=== PATIENT | female | born 2005 | race Caucasian/White ===

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

== ENCOUNTER 2025-09-13 10:31 | Outpatient (CLI) | payer BC, SELFPAY ==
--- OUTSIDE RECORDS SUMMARY | 2025-07-17 20:41 | XMS_ITS | Encounter Summary ---
Author Organization [facility] Address [address] [place] [address] Care Team Providers Care Nut Packer Name Role Phone Stacy Lake MD Primary Care Provider + Reason for Visit * Reason Comments Wellness Check Encounter Details Date Type Department Care Team (Late st Contact Info) Description 07/17/2025 9:41 PM EDT - 07/18/2025 1:39 AM EDT Emergency [facility] [address] [place] [phone] Charles Rocha MD [address] [place] [address] POTS (postural orthostatic tachycardia syndrome) (Primary Dx); Vasovagal syncope Discharge Disposition: Home or Self Care Social History Tobacco Use Types Packs/Day Years Used Date Smoking Tobacco: Never Smokeless Tobacco: Never Abuse Screen Answer Date Recorded Feels Unsafe at Home or Work/School no 07/17/2025 Feels Threatened by Someone no 06/25 Does Anyone Try to Keep You From Having Contact with Others or Doing Things Outside Your Home? no 07/17/2025 Physical Signs of Abuse Present no 07/17/2025 Comments No Sex and Gender Information Value Date Recorded Sex Assigned at Not on file Legal Sex Female 5:07 PM EDT Gender Identity Not on file Sexual Orientation Not on file Travel History Travel Start Travel End [place] 07/21/2025 08/20/2025 documented as of this encounter Last Filed Vital Signs Vital Sign Reading Time Taken Comments Blood Pressure 145/96 07/18/2025 1:30 AM EDT Pulse 75 07/18/2025 1:31 AM EDT Temperature 36.8 C (98.3 F) 07/17/2025 9:46 PM EDT Respiratory Rate 16 07/17/2025 9:46 PM EDT Oxygen Saturation 100% 07/18/2025 1:31 AM EDT Inhaled Oxygen Concentration - - Weight 113 kg (250 lb) 07/17/2025 9:46 PM EDT Height 170.2 cm (5' 7 ) 07/17/2025 9:46 PM EDT Body Mass Index 39.16 07/17/2025 9:46 PM EDT documented in this encounter Functional Status * Calculated C-SSRS Risk Score (Lifetime/Recent) Answer Date of Assessment Author No Risk Indicated 07/17/2025 9:50 PM EDT Dominique Avalos RN * [place] Suicide Severity Rating Scale (Screener/Recent Self-Report) Question Answer Date of Assessment Author 1. Wish to be (Past 1 Month) No 07/17/2025 9:50 PM EDT Dominique Vela RN 2. Non-Specific Active Suici prudencio Thoughts (Past 1 Month) No 07/17/2025 9:50 PM EDT Jac Vela RN 6. Suicidal Behavior (Lifetime) No 9:50 PM EDT Dominique Vela RN documented as of this encounter Discharge Instructions * Discharge Instructions* Charles Rocha MD - 07/18/2025 1:19 AM EDT You were evaluated after passing out. We got lab work and a chest x-ray that showed no concerns forblood clots, other problems with your hearts or electrolyte derangement. You are now stable for discharge. We would recommend that you follow with your chronic care providers to further discuss your chronic syncope and POTS. Would recommend drinking plenty of fluids prevent dehydration we have sentmore Zofran to help with nausea and vomiting at home. If you begin to have chest pain or shortness of breath, please come back to the emergency department for further evaluation. You are now stable for discharge. * Attachments The following attachments cannot be sent through Care Everywhere. * Syncope Adult [id number]-Dphx ([place]) documented in this encounter Medications at Time of Discharge Aimovig 140 MG/ML auto-injector Inject 1 mL under the skin into the appropriate area as directed Every 30 (Thirty) Days. 04/12/2024 Cholecalciferol 50 MCG (2000 UT) tablet Take 2,000 Units by mouth Daily. 08/18/2021 colestipol (COLESTID) 1 g tablet Take 1 tablet by mouth 2 (Two) Times a Day. 01/09/2025 01/11/20 famotidine (PEPCID) 20 MG tablet Take 1 tablet by mouth Daily. fludrocortisone 0.1 MG tablet Take 1 tablet by mouth Daily. 08/31/2024 ibuprofen (ADVIL,MOTRIN) 800 MG tablet Take 1 tablet by mouth Daily. 04/12/2024 ivabradine HCl (CORLANOR) 5 MG tablet tablet Take 0.5 tablets by mouth. 07/27/2024 levothyroxine (SYNTHROID, LEVOTHROID) 88 MCG tablet Take 88 mcg by mouth Daily. magnesium oxide (MAG-OX) 400 MG tablet Take 400 mg by mouth Daily. 08/18/2022 metoprolol succinate XL (TOPROL-XL) 25 MG 24 hr tablet Take 0.5 tablets by mouth Daily. 06/14/2024 Nurtec 75 MG dispersible tablet Take 1 tablet by mouth. 04/12/2024 ondansetron ODT (ZOFRAN-ODT) [address] 1 tablet on the tongue Every 8 (Eight) Hours As Needed for Nausea or Vomiting. 20 tablet 07/18/2025 pantoprazole (PROTONIX) 40 MG EC tablet 1 tablet. SUMAtriptan (IMITREX) 50 MG tablet TAKE 1 TABLET BY MOUTH ONCE NEEDED FOR MIGRAINE, MAY REPEAT AFTER 2 HOURS 10/03/2022 topiramate (TOPAMAX) 25 MG tablet TAKE 1 TABLET BY MOUTH TWICE DAILY. START WITH 1 TABLET AT NIGHT FOR 7 DAYS. 11/16/2022 documented as of this encounter ED Notes * Hector Ortiz RN - 07/18/2025 1:35 AM EDT Pt left ER in stable condition and a&o x4. Pt left in wheelchair accompanied by central sterile tech and left with [facility] [employer] en route to [facility]. Pt had no further questions following discharge teaching. * Edis Ward - 07/18/2025 1:25 AM EDTSummary: Transportation [facility] [employer] called for transport back to [place]. * Charles Rocha MD - 07/17/2025 9:46 PM EDT Images from the original note were not included. Subjective: History of Present Illness: Patient is a 19-year-old female with history of hypothyroidism, POTS and vasovagal syncope who presents today with nausea vomiting and a syncopal episode. Reportedly has had several episodes of vomiting today and was found down by her roommate. Was not alert and oriented and at her baseline on EMS a rrival. She denies any fevers. Denies any trauma. No headache or visual change. Denies any chest pain or shortness of breath. No abdominal pain, no diarrhea. Denies any dysuria. No abnormal vaginal bleeding or discharge. Denies . No new leg swelling or leg pain. Denies any personal historyof PE/DVT. Nurses Notes reviewed and agree, including vitals, allergies, social history and prior medical history. REVIEW OF SYSTEMS: All systems reviewed and not pertinent unless noted. Review of Systems Constitutional: Positive for activity change and appetite change. Negative for chills, fatigue and fever. HENT: Negative for rhinorrhea, sinus pressure and sinus pain. Eyes: Negative for discharge and itching. Respiratory: Negative for cough and shortness of breath. Cardiovascular: Negative for chest pain and leg swelling. Gastrointestinal: Positive for nausea and vomiting. Negative for abdominal distention, abdominal pain, constipation and diarrhea. Endocrine: Negative for cold intolerance and heat intolerance. Genitourinary: Negative for decreased urine volume, difficulty urinating, flank pain, frequency, urgency, vaginal bleeding, vaginal discharge and vaginal pain. Musculoskeletal: Negative for gait problem, neck pain and neck stiffness. Skin: Negative for color change. Allergic/Immunologic: Negative for environmental allergies. Neurological: Positive for syncope. Negative for seizures, facial asymmetry and speech difficulty. Psychiatric/Behavioral: Negative for self-injury and suicidal ideas. Past Medical History: Diagnosis Date Hypothyroid POTS (postural orthostatic tachycardia syndrome) Allergies: Red dye #40 (allura red) and Sulfa antibiotics Past Surgical History: Procedure Laterality Date TONSILLECTOMY Bilateral Social History Socioeconomic History Marital status: Single Tobacco Use Smoking status: Never Smokeless tobacco: Never Vaping Use Vaping status: Never Used Substance and Sexual Activity Drug use: Never Sexual activity: Never History reviewed. No pertinent family history. Objective Physical Exam: BP 145/96 Pulse 75 Temp 98.3 ??F (36.8 ??C) (Oral) Resp 16 Ht 170.2 cm (67 ) Wt 113 kg (250 lb) LMP 06/05/2025 (Approximate) SpO2 100% BMI 39.16 kg/m?? Physical Exam Constitutional: General: She is not in acute distress. Appearance: Normal appearance. She is obese. She is not ill-appearing. HENT: Head: Normocephalic and atraumatic. Nose: Nose normal. No congestion or rhinorrhea. Mouth/Throat: Mouth: Mucous membranes are dry. Pharynx: Oropharynx is clear. No oropharyngeal exudate or posterior oropharyngeal erythema. Eyes: Extraocular Movements: Extraocular movements intact. Conjunctiva/sclera: Conjunctivae normal. Pupils: Pupils are equal, round, and reactive to light. Cardiovascular: Rate and Rhythm: Normal rate and regular rhythm. Pulses: Normal pulses. Heart sounds: Normal heart sounds. Pulmonary: Effort: Pulmonary effort is normal. No respiratory distress. Breath sounds: Normal breath sounds. Abdominal: General: Abdomen is flat. Bowel sounds are normal. There is no distension. Palpations: Abdomen is soft. Tenderness: There is no abdominal tenderness. There is no right CVA tenderness, left CVA tenderness, guarding or rebound. Musculoskeletal: General: No swelling or tenderness. Normal range of motion. Cervical back: Normal range of motion and neck supple. Right lower leg: No edema. Left lower leg: No edema. Skin: General: Skin is warm and dry. Capillary Refill: Capillary refill takes less than 2 seconds. Neurological: General: No focal deficit present. Mental Status: She is alert and oriented to person, place, and time. Mental status is at baseline. Cranial Nerves: No cranial nerve deficit. Sensory: No sensory deficit. Motor: No weakness. Coordination: Coordination normal. Psychiatric: Mood and Affect: Mood normal. Behavior: Behavior normal. Thought Content: Thought content normal. Judgment: Judgment normal. Procedures ED Course: ED Course as of 07/18/25230Jul 17, [id number] EKG interpreted by me, normal sinus rhythm concerning ST changes noted, rate of 78 [JE] 4 Chest x-ray independently interpreted by me showed no acute process [JE] ED Course User Index [JE] Charles Rocha MD Lab Results (last 24 hours) Procedure Component Value Units Date/Time COVID-19 and FLU A/B PCR, 1 HR TAT - Swab, Nasopharynx [[id number]] (Normal) Collected: 07/17/252150 Specimen: Swab from Nasopharynx Updated: 07/17/252215 COVID19 Not Detected Influenza A PCR Not Detected Influenza B PCR Not Detected CBC & Differential [[id number]] (Abnormal) Collected: 07/17/252150 Specimen: Blood Updated: 07/17/252156 Narrative: The following orders were created for panel order CBC & Differential. Procedure Abnormality Status --------- ------ CBC Auto Differential[[id number]] Abnormal Final result Please view results for these tests on the individual orders. Comprehensive Metabolic Panel [[id number]] (Abnormal) Collected: 07/17/252150 Specimen: Blood Updated: 07/17/252212 Glucose 93 mg/dL BUN 17.0 mg/dL Creatinine 0.71 mg/dL Sodium 138 mmol/L Potassium 4.1 mmol/L Chloride 106 mmol/L CO2 20.6 mmol/L Calcium 9.0 mg/dL Total Protein 6.9 g/dL Albumin 4.3 g/dL ALT (SGPT) 26 U/L AST (SGOT) 26 U/L Alkaline Phosphatase 88 U/L Total Bilirubin 0.6 mg/dL Globulin 2.6 gm/dL A/G Ratio 1.7 g/dL BUN/Creatinine Ratio 23.9 Anion Gap 11.4 mmol/L eGFR 125.8 mL/min/1.73 Narrative: GFR Categories in Chronic Kidney Disease (CKD) GFR Category GFR (mL/min/1.73) Interpretation G1 90 or greater Normal or high (1) G2 60-89 Mild decrease (1) G3a 45-59 Mild to moderate decrease G3b 30-44 Moderate to severe decrease G4 15-29 Severe decrease G5 14 or less Kidney failure (1)In the absence of evidence of kidney disease, neither GFR category G1 or G2 fulfill the criteriafor CKD. eGFR calculation 2020 CKD-EPI creatinine equation, which does not include race as a factor High Sensitivity Troponin T [[id number]] (Normal) Collected: 07/17/252150 Specimen: Blood Updated: 07/17/252215 HS Troponin T <6 ng/L Narrative: High Sensitive Troponin T Reference Range: <14.0 ng/L- Negative Female for AMI <22.0 ng/L- Negative Male for AMI >=14 - Abnormal Female indicating possible myocardial injury. >=22 - Abnormal Male indicating possible myocardial injury. Clinicians would have to utilize clinical acumen, EKG, Troponin, and serial changes to determine ifit is an Acute Myocardial Infarction or myocardial injury due to an underlying chronic condition. D-dimer, Quantitative [[id number]] (Normal) Collected: 07/17/252150 Specimen: Blood Updated: 07/17/252249 D-Dimer, Quantitative <0.27 MCGFEU/mL Narrative: According to the assay billposter's published package insert, a normal (<0.50 MCGFEU/mL) D-dimer result in conjunction with a non-high clinical probability assessment, excludes deep vein thrombosis (DVT) and pulmonary embolism (PE) with high sensitivity. D-dimer values increase with age and this can make VTE exclusion of an older population difficult. To address this, the [employer], based on best available evidence and recent guidelines, recommends that clinicians use age-adjusted D-dimer thresholds in patients greater than 50 years of age with: a) a low probability of PE who do not meet all Pulmonary Embolism Rule Out Criteria, or b) in those with intermediate probability of PE. The formula for an age-adjusted D-dimer cut-off is age/100 . For example, a 60 year old patient would have an age-adjusted cut-off of 0.60 MCGFEU/mL and an 80 year old 0.80 MCGFEU/mL. C-reactive Protein [[id number]] (Abnormal) Collected: 07/17/252150 Specimen: Blood Updated: 07/17/252212 C-Reactive Protein 0.59 mg/dL Procalcitonin [[id number]] (Normal) Collected: 07/17/252150 Specimen: Blood Updated: 07/17/252220 Procalcitonin 0.04 ng/mL Narrative: As a Marker for Sepsis (Non-Neonates): 1. <0.5 ng/mL represents a low risk of severe sepsis and/or septic shock. 2. >2 ng/mL represents a high risk of severe sepsis and/or septic shock. As a Marker for Lower Respiratory Tract Infections that require antibiotic therapy: PCT on Admission Antibiotic Therapy 6-12 Hrs later >0.5 Strongly Recommended >0.25 - <0.5 Recommended 0.1 - 0.25 Discouraged Remeasure/reassess PCT <0.1 Strongly Discouraged Remeasure/reassess PCT As 28 day mortality risk marker: Change in Procalcitonin Result (>80% or <=80%) if Day 0 (or Day 1) and Day 4 values are available. Refer to http://www.kplnoc-lmk-trxswkdsst.com Change in PCT <=80% A decrease of PCT levels below or equal to 80% defines a positive change in PCT test result representing a higher risk for 28-day all-cause mortality of patients diagnosed with severe sepsis for septic shock. Change in PCT >80% A decrease of PCT levels of more than 80% defines a negative change in PCT result representing a lower risk for 28-day all-cause mortality of patients diagnosed with severe sepsis or septic shock. Magnesium [[id number]] (Normal) Collected: 07/17/252150 Specimen: Blood Updated: 07/17/252212 Magnesium 2.2 mg/dL CK [[id number]] Collected: 07/17/252150 Specimen: Blood Updated: 07/17/252212 Creatine Kinase 156 U/L CBC Auto Differential [[id number]] (Abnormal) Collected: 07/17/252150 Specimen: Blood Updated: 07/17/252156 WBC 11.44 10*3/mm3 RBC 4.11 10*6/mm3 Hemoglobin 12.5 g/dL Hematocrit 36.5 % MCV 88.8 fL MCH 30.4 pg MCHC 34.2 g/dL RDW 13.5 % RDW-SD 43.9 fl MPV 10.5 fL Platelets 358 10*3/mm3 Neutrophil % 53.8 % Lymphocyte % 35.7 % Monocyte % 9.0 % Eosinophil % 0.7 % Basophil % 0.5 % Immature Grans % 0.3 % Neutrophils, Absolute 6.16 10*3/mm3 Lymphocytes, Absolute 4.08 10*3/mm3 Monocytes, Absolute 1.03 10*3/mm3 Eosinophils, Absolute 0.08 10*3/mm3 Basophils, Absolute 0.06 10*3/mm3 Immature Grans, Absolute 0.03 10*3/mm3 nRBC 0.0 /100 WBC , Urine - Urine, Clean Catch [[id number]] (Normal) Collected: 07/18/2555 Specimen: Urine, Clean Catch Updated: 07/18/25 011 HCG, Urine QL Negative Narrative: Urinalysis With Culture If Indicated - Urine, Clean Catch [[id number]] (Abnormal) Collected: 07/18/2555 Specimen: Urine, Clean Catch Updated: 07/18/25 0101 Color, UA Yellow Appearance, UA Clear pH, UA 5.5 Specific [place], UA 1.020 Glucose, UA Negative Ketones, UA 40 mg/dL (2+) Bilirubin, UA Negative Blood, UA Negative Protein, UA Negative Leuk Esterase, UA Negative Nitrite, UA Negative Urobilinogen, UA 0.2 E.U./dL Narrative: In absence of clinical symptoms, the presence of pyuria, bacteria, and/or nitrites on the urinalysis result does not correlate with infection. Urine microscopic not indicated. No radiology results from the last 24 hrs MDM Amount and/or Complexity of Data Reviewed Independent visualization of images, tracings, or specimens: yes Initial impression of presenting illness: Syncope DDX: includes but is not limited to: Vasovagal syncope, gastroenteritis, dehydration, PE Patient arrives stable with vitals interpreted by myself. Pertinent features from physical exam: Clear to auscultation, regular rate and rhythm, no murmur, nontender to abdominal palpation, no pedal edema bilateral. Initial diagnostic plan: CBC, CMP, lipase, UA, CRP, lactic acid, troponin, D- dimer UA, UPT Results from initial plan were reviewed and interpreted by me revealing no concern for PE, no concern for acute cardiac process, patient does have ketonuria likely secondary to slight dehydration Diagnostic information from other sources: Discussed with EMS on arrival and reviewed past medical records Interventions / Re-evaluation: Given IV fluids due to concerns for dehydration, received Zofran from EMS Results/clinical rationale were discussed with patient at bedside Consultations/Discussion of results with other physicians: Discussed negative workup in emergency department, given ketonuria suspect dehydration as etiology of her presentation today. I prescribed patient Zofran encourage oral hydration at home and follow-up with her chronic care providers to ensure resolution of symptoms. Given strict turn precaution for any severe chest pain, shortness of breath, further episodes of syncope. Disposition plan: Discharge ----- Final diagnoses: POTS (postural orthostatic tachycardia syndrome) Vasovagal syncope Charles Rocha MD 07/18/25 0231 documented in this encounter Plan of Treatment Not on file documented as of this encounter Procedures Procedure Name Priority Date/Time Associated Diagnosis Comments URINALYSIS W/ CULTURE IF INDICATED STAT 07/18/2025 12:56 AM EDT , URINE STAT 07/18/2025 12:5 6 AM EDT XR CHEST 1 VW STAT 07/17/2025 10:14 PM EDT ECG 12-LEAD STAT 07/17/2025 9:58 PM EDT COVID-19 AND FLU A/B, AUTOMATION QA ANALYST SWAB IN TRANSPORT MEDIA 1 HR TAT STAT 07/17/2025 9:51 PM EDT PROCALCITONIN STAT 07/17/2025 9:51 PM EDT CBC WITH AUTO DIFFERENTIAL STAT 07/17/2025 9:51 PM EDT TROPONIN STAT 07/17/2025 9:51 PM EDT D-DIMER, QUANTITATIVE STAT 07/17/2025 9:51 PM EDT CBC AND DIFFERENTIAL STAT 07/17/2025 9:51 PM EDT C-REACTIVE PROTEIN STAT 07/17/2025 9: 51 PM EDT MAGNESIUM STAT 07/17/2025 9:51 PM EDT CK STAT 07/17/2025 9:51 PM EDT COMPREHENSIVE METABOLIC PANEL STAT 07/17/2025 9:51 PM EDT documented in this encounter Results * (ABNORMAL) Urinalysis With Culture If Indicated - Urine, Clean Catch (07/18/2025 12:56 AM EDT) Color, UA Yellow Yellow, Straw 07/18/2025 1:01 AM EDT [facility] Appearance, UA Clear Clear 07/18/2025 1:01 AM EDT [facility] pH, UA 5.5 5.0 - 8.0 07/18/2025 1:01 AM EDT [facility] Specific [place], UA 1.020 1.005 - 1.030 07/18/2025 1:01 AM EDT [facility] Glucose, UA Negative Negative 07/18/2025 1:01 AM EDT [facility] Ketones, UA 40 mg/dL (2+)(A) Negative 07/18/2025 1:01 AM EDT [facility] Bilirubin, UA Negative Negative 07/18/2025 1:01 AM EDT [facility] Blood, UA Negative Negative 07/18/2025 1:01 AM EDT [facility] Protein, UA Negative Negative 07/18/2025 1:01 AM EDT [facility] Leuk Esterase, UA Negative Negative 07/18/2025 1:01 AM EDT [facility] Nitrite, UA Negative Negative 07/18/2025 1:01 AM EDT [facility] Urobilinogen, UA 0.2 E.U./dL 0.2 - 1.0 E.U./dL 07/18/2025 1:01 AM EDT [facility] Urine Urine specimen obtained by clean catch procedure / Unknown Collection / Unknown 07/18/2025 12:56 AM EDT 07/18/2025 12:56 AM EDT [facility] - 07/18/2025 1:01 AM EDT In absence of clinical symptoms, the presence of pyuria, bacteria, and/or nitrites on the urinalysis result does not correlate with infection. Urine microscopic not indicated. us Charles Rocha MD URINE ORDERABLES Final Res ult Performing Organization Address City/[facility]/ZIP Co de Phone Number [facility]
[address] [id number], [place] [phone] * , Urine - Urine, Clean Catch (07/18/2025 12:56 AM EDT) HCG, Urine QL Negative Negative 07/18/2025 1:12 AM EDT [facility] Urine Urine specimen obtained by clean catch procedure / Unknown Collection / Unknown 07/18/2025 12:56 AM EDT 07/18/2025 12:56 AM EDT [facility] - 07/18/2025 1:12 AM EDT us Charles Rocha MD URINE ORDERABLES Final Res ult Performing Organization Address City/[facility]/ZIP Co de Phone Number [facility]
[address] [id number], [place] [phone] * XR Chest 1 View (07/17/2025 10:14 PM EDT) Anatomical Region Laterality Modality Body N/A Radiographic Breanna ging 07/18/2025 1:31 PM EDT Impressions 07/18/2025 1:32 PM EDT No acute cardiopulmonary process. Images were reviewed, interpreted, and dictated by Dr. Radha Vaughn MD Transcribed by Tony Gonzalez PA-C. This report was signed and finalized on 07/18/2025 1:32 PM by Radha Vaughn MD. Narrative 07/18/2025 1:32 PM EDT PROCEDURE: XR CHEST 1 VW- HISTORY: Syncope COMPARISON: 06/06/2025. FINDINGS: The heart is normal in size. The mediastinum is unremarkable. The lungs are clear. There is no pneumothorax. There are no acute osseous abnormalities. No change compared to prior. Procedure Note Radha Vaughn MD - 07/18/2025 PROCEDURE: XR CHEST 1 VW- HISTORY: Syncope COMPARISON: 06/06/2025. FINDINGS: The heart is normal in size. The mediastinum is unremarkable. The lungs are clear. There is no pneumothorax. There are no acute osseous abnormalities. No change compared to prior. IMPRESSION: No acute cardiopulmonary process. Images were reviewed, interpreted, and dictated by Dr. Radha Vaughn MD Transcribed by Tony Gonzalez PA-C. This report was signed and finalized on 07/18/2025 1:32 PM by Radha Vaughn MD. Charles Rocha MD IMG DIAGNOSTIC IMAGING ORD ERABLES Final Result * ECG 12 Lead Syncope (07/17/2025 9:58 PM EDT) us Charles Rocha MD ECG ORDERABLES Final Resu lt * (ABNORMAL) CBC Auto Differential (07/17/2025 9:51 PM EDT) WBC 11.44(H) 3.40 - 10.80 10*3/mm3 07/17/2025 9:57 PM EDT [facility] RBC 4.11 3.77 - 5.28 10*6/mm3 07/17/2025 9:57 PM EDT [facility] Hemoglobin 12.5 12.0 - 15.9 g/dL 07/17/2025 9:57 PM EDT [facility] Hematocrit 36.5 34.0 - 46.6 % 07/17/2025 9:57 PM EDT [facility] MCV 88.8 79.0 - 97.0 fL 07/17/2025 9:57 PM EDT [facility] MCH 30.4 26.6 - 33.0 pg 07/17/2025 9:57 PM EDT [facility] MCHC 34.2 31.5 - 35.7 g/dL 07/17/2025 9:57 PM EDT [facility] RDW 13.5 12.3 - 15.4 % 07/17/2025 9:57 PM EDT [facility] RDW-SD 43.9 37.0 - 54.0 fl 07/17/2025 9:57 PM EDT [facility] MPV 10.5 6.0 - 12.0 fL 07/17/2025 9:57 PM EDT [facility] Platelets 358 140 - 450 10*3/mm3 07/17/2025 9:57 PM EDT [facility] Neutrophil % 53.8 42.7 - 76.0 % 07/17/2025 9:57 PM EDT [facility] Lymphocyte % 35.7 19.6 - 45.3 % 07/17/2025 9:57 PM EDT [facility] Monocyte % 9.0 5.0 - 12.0 % 07/17/2025 9:57 PM EDT [facility] Eosinophil % 0.7 0.3 - 6.2 % 07/17/2025 9:57 PM EDT [facility] Basophil % 0.5 0.0 - 1.5 % 07/17/2025 9:57 PM EDT [facility] Immature Grans % 0.3 0.0 - 0.5 % 07/17/2025 9:57 PM EDT [facility] Neutrophils, Absolute 6.16 1.70 - 7.00 10*3/mm3 07/17/2025 9:57 PM EDT [facility] Lymphocytes, Absolute 4.08(H) 0.70 - 3.10 10*3/mm3 07/17/2025 9:57 PM EDT [facility] Monocytes, Absolute 1.03(H) 0.10 - 0.90 10*3/mm3 07/17/2025 9:57 PM EDT [facility] Eosinophils, Absolute 0.08 0.00 - 0.40 10*3/mm3 07/17/2025 9:57 PM EDT [facility] Basophils, Absolute 0.06 0.00 - 0.20 10*3/mm3 07/17/2025 9:57 PM EDT [facility] Immature Grans, Absolute 0.03 0.00 - 0.05 10*3/mm3 07/17/2025 9:57 PM EDT [facility] nRBC 0.0 0.0 - 0.2 /100 WBC 07/17/2025 9:57 PM EDT [facility] Blood Venipuncture / Unknown 07/17/2025 9:51 PM EDT 07/17/2025 9:54 PM EDT Charles Rocha MD LAB BLOOD ORDERABLES Final Result [facility]
[address] [place] [address], * CK (07/17/2025 9:51 PM EDT) Creatine Kinase 156 U/L 07/17/2025 10:13 PM EDT [facility] Blood Venipuncture / Unknown 07/17/2025 9:51 PM EDT 07/17/2025 9:55 PM EDT Charles Rocha MD LAB BLOOD ORDERABLES Final Result [facility]
[address] [place] [address], [place] [phone] * Magnesium (07/17/2025 9:51 PM EDT) Magnesium 2.2 1.7 - 2.2 mg/dL 07/17/2025 10:13 PM EDT [facility] Blood Venipuncture / Unknown 07/17/2025 9:51 PM EDT 07/17/2025 9:55 PM EDT us Charles Rocha MD LAB BLOOD ORDERABLES Final Result [facility]
[address] [place] [address], * Procalcitonin (07/17/2025 9:51 PM EDT) Procalcitonin 0.04 0.00 - 0.25 ng/mL 07/17/2025 10:21 PM EDT [facility] Blood Venipuncture / Unknown 07/17/2025 9:51 PM EDT 07/17/2025 9:55 PM EDT Narrative [facility] - 07/17/2025 10:21 PM EDT As a Marker for Sepsis (Non-Neonates): 1. <0.5 ng/mL represents a low risk of severe sepsis and/or septic shock. 2. >2 ng/mL represents a high risk of severe sepsis and/or septic shock. As a Marker for Lower Respiratory Tract Infections that require antibiotic therapy: PCT on Admission Antibiotic Therapy 6-12 Hrs later >0.5 Strongly Recommended >0.25 - <0.5 Recommended 0.1 - 0.25 Discouraged Remeasure/reassess PCT <0.1 Strongly Discouraged Remeasure/reassess PCT As 28 day mortality risk marker: Change in Procalcitonin Result (>80% or <=80%) if Day 0 (or Day 1) and Day 4 values are available. Refer to http://www.epiblq-fqt-dddcgclkxk.com Change in PCT <=80% A decrease of PCT levels below or equal to 80% defines a positive change in PCT test result representing a higher risk for 28-day all-cause mortality of patients diagnosed with severe sepsis for septic shock. Change in PCT >80% A decrease of PCT levels of more than 80% defines a negative change in PCT result representing a lower risk for 28-day all-cause mortality of patients diagnosed with severe sepsis or septic shock. us Charles Rocha MD LAB BLOOD ORDERABLES Final Result [facility]
[address] [place] [address], * (ABNORMAL) C-reactive Protein (07/17/2025 9:51 PM EDT) C-Reactive Protein 0.59(H) 0.00 - 0.50 mg/dL 07/17/2025 10:13 PM EDT [facility] Blood Venipuncture / Unknown 07/17/2025 9:51 PM EDT 07/17/2025 9:55 PM EDT Charles Rocha MD LAB BLOOD ORDERABLES Final Result Performing Organization Address [facility]/ZIP Co de Phone Number [facility]
[address] [place] [address], * D-dimer, Quantitative (07/17/2025 9:51 PM EDT) Pathologist [facility] D-Dimer, Quantitative <0.27 0.00 - 0.50 MCGFEU/mL 07/17/2025 10:50 PM EDT [facility] Blood Venipuncture / Unknown 07/17/2025 9:51 PM EDT 07/17/2025 9:54 PM EDT Narrative [facility] - 07/17/2025 10:50 PM EDT According to the assay [employer]'s published package insert, a normal (<0.50 MCGFEU/mL) D-dimer result in conjunction with a non-high clinical probability assessment, excludes deep vein thrombosis (DVT) and pulmonary embolism (PE) with high sensitivity. D-dimer values increase with age and this can make VTE exclusion of an older population difficult. To address this, the [employer], based on best available evidence and recent guidelines, recommends that clinicians use age-adjusted D-dimer thresholds in patients greater than 50 years of age with: a) a low probability of PE who do not meet all Pulmonary Embolism Rule Out Criteria, or b) in those with intermediate probability of PE. The formula for an age-adjusted D-dimer cut-off is age/100 . For example, a 60 year old patient would have an age-adjusted cut-off of 0.60 MCGFEU/mL and an 80 year old 0.80 MCGFEU/mL. us Charles Rocha MD LAB BLOOD ORDERABLES Final Result Performing Organization Address City/[facility]/ZIP Co de Phone Number [facility]
[address] [place] [address], * High Sensitivity Troponin T (07/17/2025 9:51 PM EDT) [facility] HS Troponin T <6 <14 ng/L 07/17/2025 10:16 PM EDT [facility] Blood Venipuncture / Unknown 07/17/2025 9:51 PM EDT 07/17/2025 9:55 PM EDT [facility] - 07/17/2025 10:16 PM EDT High Sensitive Troponin T Reference Range: <14.0 ng/L- Negative Female for AMI <22.0 ng/L- Negative Male for AMI >=14 - Abnormal Female indicating possible myocardial injury. >=22 - Abnormal Male indicating possible myocardial injury. Clinicians would have to utilize clinical acumen, EKG, Troponin, and serial changes to determine if it is an Acute Myocardial Infarction or myocardial injury due to an underlying chronic condition. us Charles Rocha MD LAB BLOOD ORDERABLES Final Result Performing Organization Address [facility] Co de Phone Number [facility]
[address] [place] [id number], * (ABNORMAL) Comprehensive Metabolic Panel (07/17/2025 9:51 PM EDT) [facility] Glucose 93 65 - 99 mg/dL 07/17/2025 10:13 PM EDT [facility] BUN 17.0 6.0 - 20.0 mg/dL 07/17/2025 10:13 PM EDT [facility] Creatinine 0.71 0.57 - 1.00 mg/dL 07/17/2025 10:13 PM [facility] Sodium 138 136 - 145 mmol/L 07/17/2025 10:13 PM [facility] Potassium 4.1 3.5 - 5.2 mmol/L 07/17/2025 10:13 PM [facility] Chloride 106 98 - 107 mmol/L 07/17/2025 10:13 PM [facility] CO2 20.6(L) 22.0 - 29.0 mmol/L 07/17/2025 10:13 PM [facility] Calcium 9.0 8.6 - 10.5 mg/dL 07/17/2025 10:13 PM [facility] Total Protein 6.9 6.0 - 8.5 g/dL 07/17/2025 10:13 PM [facility] Albumin 4.3 3.5 - 5.2 g/dL 07/17/2025 10:13 PM [facility] ALT (SGPT) 26 1 - 33 U/L 07/17/2025 10:13 PM [facility] AST (SGOT) 26 1 - 32 U/L 07/17/2025 10:13 PM [facility] Alkaline Phosphatase 88 39 - 117 U/L 07/17/2025 10:13 PM [facility] Total Bilirubin 0.6 0.0 - 1.2 mg/dL 07/17/2025 10:13 PM [facility] Globulin 2.6 gm/dL 07/17/2025 10:13 PM [facility] A/G Ratio 1.7 g/dL 07/17/2025 10:13 PM [facility] BUN/Creatinine Ratio 23.9 7.0 - 25.0 07/17/2025 10:13 PM [facility] Anion Gap 11.4 5.0 - 15.0 mmol/L 07/17/2025 10:13 PM [facility] eGFR 125.8 >60.0 mL/min/1.7 3 07/17/2025 10:13 PM EDT [facility] Blood Venipuncture / Unknown 07/17/2025 9:51 PM EDT 07/17/2025 9:55 PM EDT Narrative [facility] - 07/17/2025 10:13 PM EDT GFR Categories in Chronic Kidney Disease (CKD) GFR Category GFR (mL/min/1.73) Interpretation G1 90 or greater Normal or high (1) G2 60-89 Mild decrease (1) G3a 45-59 Mild to moderate decrease G3b 30-44 Moderate to severe decrease G4 15-29 Severe decrease G5 14 or less Kidney failure (1)In the absence of evidence of kidney disease, neither GFR category G1 or G2 fulfill the criteria for CKD. eGFR calculation 2020 CKD-EPI creatinine equation, which does not include race as a factor Charles Rocha MD LAB BLOOD ORDERABLES Final Result [facility]
[address] [place] [address], * COVID-19 and FLU A/B PCR, 1 HR TAT - Swab, Nasopharynx (07/17/2025 9:51 PM EDT) COVID19 Not Detected Not Detected - Ref. Range WALLACE FREDY NAHOMY 07/17/2025 10:16 PM EDT [facility] Influenza A PCR Not Detected Not Detected WALLACE FREDY NAHOMY 07/17/2025 10:16 PM EDT [facility] Influenza B PCR Not Detected Not Detected WALLACE FREDY NAHOMY 07/17/2025 10:16 PM EDT [facility] Swab Nasopharyngeal structure / Unknown Collection / Unknown 07/17/2025 9:51 PM EDT 07/17/2025 9:54 PM EDT Charles Rocha MD MICROBIOLOGY - GENERAL ORD ERABLES Final Result [facility]
[address] [place] [address], documented in this encounter Visit Diagnoses Diagnosis POTS (postural orthostatic tachycardia syndrome)- Primary Unspecified tachycardia Vasovagal syncope Syncope and collapse documented in this encounter Administered Medications Inactive Administered Medications - up to 3 most recent administrations Medication Order MAR Action Action Date Dose Rate Site sodium chloride 0.9 % bolus 1,000 mL 1,000 mL, Intravenous, at 2,000 mL/hr, Administer over 0.5 Hours, Once, On Tue07/17/25 at 2159, For 1 dose New Bag 07/17/2025 9:56 PM EDT 1,000 mL 2000 mL/hr documented in this encounter Active and Recently Administered Medications Times are shown in EDT. Scheduled Medication Order 07/16/2025 07/17/2025 07/18/2025 sodium chloride 0.9 % bolus 1,000 mL (COMPLETED) 1,000 mL, Intravenous, at 2,000 mL/hr, Administer over 0.5 Hours, Once, On Tue07/17/25 at 2159, For 1 dose 6 (New Bag - Provider: Dominique Vela RN) 0120 (Stopped - Provider: Hector Ortiz, EULOGIO) documented in this encounter Additional Health Concerns Infection Onset Date Last Indicated Resolved Time COVID (rule out) 07/17/2025 07/17/2025 07/17/2025 10:16 PM EDT documented as of this encounter Care Teams Nut Packer Relationship Specialty Start Date End Date Stacy Lake MD [address] [place] [address] PCP - General Family Medicine 02/08/22 documented as of this encounter
--- OUTSIDE RECORDS SUMMARY | 2025-07-20 21:49 | XMS_ITS | Encounter Summary ---
Author Organization [facility] Address [address] [place] [address] Care Team Providers Care Attendance Clerk Name Role Phone Stacy Lake MD Primary Care Provider + Reason for Visit * Reason Comments Possible [place] Episode Encounter Details Date Type Department Care Team (Late st Contact Info) Description 07/20/2025 10:49 PM EDT - 07/21/2025 12:18 AM EDT Emergency [facility] [address] [place] [address] Marvin Arias MD [address] [place] [address] Syncope and collapse (Primary Dx); POTS (postural orthostatic tachycardia syndrome) Discharge Disposition: Home or Self Care Social History Tobacco Use Types Packs/Day Years Used Date Smoking Tobacco: Never Smokeless Tobacco: Never Abuse Screen Answer Date Recorded Feels Unsafe at Home or Work/School no 07/21/2025 Feels Threatened by Someone no 06/25 Does Anyone Try to Keep You From Having Contact with Others or Doing Things Outside Your Home? no 07/21/2025 Physical Signs of Abuse Present no 07/21/2025 Comments No Sex and Gender Information Value Date Recorded Sex Assigned at Not on file Legal Sex Female 5:07 PM EDT Gender Identity Not on file Sexual Orientation Not on file Travel History Travel Start Travel End [place] 07/21/2025 08/20/2025 documented as of this encounter Last Filed Vital Signs Vital Sign Reading Time Taken Comments Blood Pressure 126/66 07/21/2025 12:00 AM EDT Pulse 73 07/21/2025 12:00 AM EDT Temperature 37.2 C (98.9 F) 07/20/2025 10:57 PM EDT Respiratory Rate 18 07/20/2025 10:57 PM EDT Oxygen Saturation 96% 07/21/2025 12:00 AM EDT Inhaled Oxygen Concentration - - Weight 113 kg (249 lb 1.9 oz) 07/20/2025 10:57 P M EDT Height 170.2 cm (5' 7 ) 07/20/2025 10:57 PM EDT Body Mass Index 39.02 07/20/2025 10:57 PM EDT documented in this encounter Functional Status * Calculated C-SSRS Risk Score (Lifetime/Recent) Answer Date of Assessment Author No Risk Indicated 07/20/2025 11:01 PM EDT Anna Peralta RN * [place] Suicide Severity Rating Scale (Screener/Recent Self-Report) Question Answer Date of Assessment Author 1. Wish to be (Past 1 Month) No 025 11:01 PM EDT Anna Peralta RN 2. Non-Specific Active Suici prudencio Thoughts (Past 1 Month) No 07/20/2025 11:01 PM EDT Gisele Peralta RN 6. Suicidal Behavior (Lifetime) No 11:01 PM EDT Anna Peralta RN documented as of this encounter Discharge Instructions * Discharge Instructions* Marvin Arias MD - 07/20/2025 11:37 PM EDT Drink plenty of fluids to prevent dehydration as it can cause more frequent flareups of POTS/syncope. Follow-up closely with primary care provider and cardiology as an outpatient for possible medication adjustments. * Attachments The following attachments cannot be sent through Care Everywhere. * Postural Orthostatic Tachycardia Syndrome (Amharic) documented in this encounter Medications at Time [...] TABLET AT NIGHT FOR 7 DAYS. 11/16/2022 amoxicillin (AMOXIL) 500 MG capsule Take 2 capsules by mouth 2 (Two) Times a Day. 08/13/20 25 documented as of this encounter ED Notes * Marvin Arias MD - 07/20/2025 10:59 PM EDT Images from the original note were not included. [facility] Emergency Department Encounter Emergency Medicine Physician Note Pt Name: Verenice Redding Pt : 2005 Room Number: 19SF/19 Date of encounter: 07/20/2025 PCP: Stacy Lake MD ED Provider: Marvin Arias MD Historian: Patient and EMS HPI: Chief Complaint: Syncope Context: Verenice Redding is a 19 y.o. female who presents to the ED c/o syncope. Patient has history of POTS with frequent ER visits for syncopal episodes. Has been seen 4 times in the past month for similar symptoms. States that tonight she had a syncopal episode in her room and thinks that she was unconscious for 2 to 3 minutes. Was awake alert and oriented at time of arrival by EMS. Patient does report mild headache at this time but denies head trauma. States she did not hit her head when she fell and remembers this. No states that she had a tooth extracted a few days ago which has been stressful to her. Admits that stress causes increased flareups of POTS. PAST MEDICAL HISTORY Past Medical History: Diagnosis Date Hypothyroid POTS (postural orthostatic tachycardia syndrome) PAST SURGICAL HISTORY Past Surgical History: Procedure Laterality Date TONSILLECTOMY Bilateral FAMILY HISTORY History reviewed. No pertinent family history. SOCIAL HISTORY Social History Socioeconomic History Marital status: Single Tobacco Use Smoking status: Never Smokeless tobacco: Never Vaping Use Vaping status: Never Used Substance and Sexual Activity Drug use: Never Sexual activity: Never ALLERGIES Red dye #40 (allura red) and Sulfa antibiotics REVIEW OF SYSTEMS Review of Systems All systems reviewed and negative except for those discussed in HPI. PHYSICAL EXAM I have reviewed the triage vital signs and nursing notes. ED Triage Vitals Temp Pulse Resp BP SpO2 -- -- -- -- -- Temp src Heart Rate Source Patient Position BP Location FiO2 (%) -- -- -- -- -- Physical Exam General: Awake, alert, morbidly obese, no acute distress HEENT: Atraumatic, normocephalic, EOMI, PERRLA, mucous membranes moist NECK: Supple, atraumatic Cardiovascular: regular rhythm, no murmurs, rubs, or gallops. Extremities well perfused Respiratory: Regular rate, clear lungs to auscultation bilaterally. No rhonchi, rales, wheezing Abdominal: Soft, nondistended, nontender. No guarding or rebound. No palpable masses Extremity: No visible bony abnormalities in all 4 extremities. Full range of motion of all extremities. Skin: Warm and dry. No rashes Neuro: AAOx3, GCS 15. Cranial nerves 2-12 grossly intact. No focal strength or sensation deficits. Psych: Mood and affect appropriate. LAB RESULTS Recent Results (from the past 24 hours) Comprehensive Metabolic Panel Collection Time: 07/20/25 11:03 PM Specimen: Blood Result Value Ref Range Glucose 92 65 - 99 mg/dL BUN 14.0 6.0 - 20.0 mg/dL Creatinine 0.65 0.57 - 1.00 mg/dL Sodium 136 136 - 145 mmol/L Potassium 3.7 3.5 - 5.2 mmol/L Chloride 104 98 - 107 mmol/L CO2 19.4 (L) 22.0 - 29.0 mmol/L Calcium 9.2 8.6 - 10.5 mg/dL Total Protein 7.2 6.0 - 8.5 g/dL Albumin 4.6 3.5 - 5.2 g/dL ALT (SGPT) 24 1 - 33 U/L AST (SGOT) 22 1 - 32 U/L Alkaline Phosphatase 85 39 - 117 U/L Total Bilirubin 0.4 0.0 - 1.2 mg/dL Globulin 2.6 gm/dL A/G Ratio 1.8 g/dL BUN/Creatinine Ratio 21.5 7.0 - 25.0 Anion Gap 12.6 5.0 - 15.0 mmol/L eGFR 130.3 >60.0 mL/min/1.73 CBC Auto Differential Collection Time: 07/20/25 11:03 PM Specimen: Blood Result Value Ref Range WBC 9.33 3.40 - 10.80 10*3/mm3 RBC 4.19 3.77 - 5.28 10*6/mm3 Hemoglobin 12.6 12.0 - 15.9 g/dL Hematocrit 37.0 34.0 - 46.6 % MCV 88.3 79.0 - 97.0 fL MCH 30.1 26.6 - 33.0 pg MCHC 34.1 31.5 - 35.7 g/dL RDW 13.6 12.3 - 15.4 % RDW-SD 44.4 37.0 - 54.0 fl MPV 10.7 6.0 - 12.0 fL Platelets 364 140 - 450 10*3/mm3 Neutrophil % 65.7 42.7 - 76.0 % Lymphocyte % 25.2 19.6 - 45.3 % Monocyte % 7.3 5.0 - 12.0 % Eosinophil % 0.9 0.3 - 6.2 % Basophil % 0.8 0.0 - 1.5 % Immature Grans % 0.1 0.0 - 0.5 % Neutrophils, Absolute 6.14 1.70 - 7.00 10*3/mm3 Lymphocytes, Absolute 2.35 0.70 - 3.10 10*3/mm3 Monocytes, Absolute 0.68 0.10 - 0.90 10*3/mm3 Eosinophils, Absolute 0.08 0.00 - 0.40 10*3/mm3 Basophils, Absolute 0.07 0.00 - 0.20 10*3/mm3 Immature Grans, Absolute 0.01 0.00 - 0.05 10*3/mm3 nRBC 0.0 0.0 - 0.2 /100 WBC Magnesium Collection Time: 07/20/25 11:03 PM Specimen: Blood Result Value Ref Range Magnesium 2.0 1.7 - 2.2 mg/dL RADIOLOGY No Radiology Exams Resulted Within Past 24 Hours PROCEDURES Procedures ECG 12 Lead Syncope Final Result MEDICATIONS GIVEN IN ER Medications sodium chloride 0.9 % flush 10 mL (has no administration in time range) sodium chloride 0.9 % bolus 500 mL (0 mL Intravenous Stopped 07/21/25 0017) ketorolac (TORADOL) injection 15 mg (15 mg Intravenous Given 07/20/25 0401) MEDICAL DECISION MAKING, PROGRESS, and CONSULTS All labs, if obtained, have been independently reviewed by me. All radiology studies, if obtained, have been evaluated by me and the radiologist dictating the report. All EKG's, if obtained, have been independently viewed and interpreted by me. Discussion below represents my analysis of pertinent findings related to patient's condition, differential diagnosis, treatment plan and final disposition. Verenice Redding is a 19 y.o. female who presents to the ED c/o syncope. Hemodynamically stable andnontoxic in appearance upon arrival. Brought in by EMS. Awake alert and oriented x 4 with GCS of 15. Patient has extensive history of POTS with frequent ER visits for syncopal episodes, seen now 5 times over the past month for similar symptoms. Tonight symptoms consistent with possible POTS flare versus anxiety reaction. Differential also includes arrhythmia, electrolyte imbalance, dehydration. Patient given 500 cc bolus of normal saline IV fluids. Patient also given IV Toradol for mild headache. EKG shows normal sinus rhythm with rate of 87 with no significant QT prolongation along with no ST elevations consistent with STEMI criteria. No significant arrhythmia. Labs show no significant leukocytosis or anemia. No critical electro abnormalities. Following treatment patient's symptoms improved. 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 Patient agreeable with this plan and discharged from ER. Orders placed during this visit: Orders Placed This Encounter Procedures Comprehensive Metabolic Panel CBC Auto Differential Magnesium ECG 12 Lead Syncope Insert Peripheral IV CBC & Differential ED Course: Consultants: None Shared Decision Making: After my consideration of clinical presentation and any laboratory/radiology studies obtained, I discussed the findings with the patient/patient special service representative who is in agreement with the treatment plan and the final disposition. Risks and benefits of discharge and/or observation/admission were discussed. OF 01:15 EDT VITALS: BP - 126/66 HR - 73 TEMP - 98.9 ??F (37.2 ??C) (Oral) O2 SATS - 96% DIAGNOSIS Final diagnoses: Syncope and collapse POTS (postural orthostatic tachycardia syndrome) DISPOSITION Discharge Please note that portions of this document were completed with voice recognition software. Marvin Arias MD 07/21/25 0115 documented in this encounter Plan of Treatment Not on file documented as of this encounter Procedures Procedure Name Priority Date/Time Associated Diagnosis Comments ECG 12-LEAD STAT 07/20/2025 11:18 PM EDT CBC WITH AUTO DIFFERENTIAL STAT 07/20/2025 11:03 PM EDT CBC AND DIFFERENTIAL STAT 07/20/2025 11:03 PM EDT MAGNESIUM STAT 07/20/2025 11:03 PM EDT COMPREHENSIVE METABOLIC PANEL STAT 07/20/2025 11:03 PM EDT documented in this encounter Results * ECG 12 Lead Syncope (07/20/2025 11:18 PM EDT) Marvin Arias MD ECG ORDERABLES Final Result * Magnesium (07/20/2025 11:03 PM EDT) Pathologist [facility] Magnesium 2.0 1.7 - 2.2 mg/dL 07/20/2025 11:33 PM EDT [facility] Blood Venipuncture / Unknown 07/20/2025 11:03 PM EDT 07/20/2025 11:07 PM EDT [facility] WRAY LAB BLOOD ORDERABLES Final Res ult [facility]
[address] [place] [address], * CBC Auto Differential (07/20/2025 11:03 PM EDT) [facility] WBC 9.33 3.40 - 10.80 10*3/mm3 07/20/2025 11:09 PM EDT [facility] RBC 4.19 3.77 - 5.28 10*6/mm3 07/20/2025 11:09 PM EDT [facility] Hemoglobin 12.6 12.0 - 15.9 g/dL 07/20/2025 11:09 PM EDT [facility] Hematocrit 37.0 34.0 - 46.6 % 07/20/2025 11:09 PM EDT [facility] MCV 88.3 79.0 - 97.0 fL 07/20/2025 11:09 PM EDT [facility] MCH 30.1 26.6 - 33.0 pg 07/20/2025 11:09 PM EDT [facility] MCHC 34.1 31.5 - 35.7 g/dL 07/20/2025 11:09 PM EDT [facility] RDW 13.6 12.3 - 15.4 % 07/20/2025 11:09 PM EDT [facility] RDW-SD 44.4 37.0 - 54.0 fl 07/20/2025 11:09 PM EDT [facility] MPV 10.7 6.0 - 12.0 fL 07/20/2025 11:09 PM [facility] Platelets 364 140 - 450 10*3/mm3 07/20/2025 11:09 PM [facility] Neutrophil % 65.7 42.7 - 76.0 % 07/20/2025 11:09 PM [facility] Lymphocyte % 25.2 19.6 - 45.3 % 07/20/2025 11:09 PM T [facility] Monocyte % 7.3 5.0 - 12.0 % 07/20/2025 11:09 PM [facility] Eosinophil % 0.9 0.3 - 6.2 % 07/20/2025 11:09 PM [facility] Basophil % 0.8 0.0 - 1.5 % 07/20/2025 11:09 PM [facility] Immature Grans % 0.1 0.0 - 0.5 % 07/20/2025 11:09 PM [facility] Neutrophils, Absolute 6.14 1.70 - 7.00 10*3/mm3 07/20/2025 11:09 PM [facility] Lymphocytes, Absolute 2.35 0.70 - 3.10 10*3/mm3 07/20/2025 11:09 PM [facility] Monocytes, Absolute 0.68 0.10 - 0.90 10*3/mm3 07/20/2025 11:09 PM [facility] Eosinophils, Absolute 0.08 0.00 - 0.40 10*3/mm3 07/20/2025 11:09 PM [facility] Basophils, Absolute 0.07 0.00 - 0.20 10*3/mm3 07/20/2025 11:09 PM [facility] Immature Grans, Absolute 0.01 0.00 - 0.05 10*3/mm3 07/20/2025 11:09 PM [facility] nRBC 0.0 0.0 - 0.2 /100 WBC 07/20/2025 11:09 PM [facility] Blood Venipuncture / Unknown 07/20/2025 11:03 PM EDT 07/20/2025 11:07 PM EDT Marvin Arias MD LAB BLOOD ORDERABLES Final Res ult [facility]
[address] [place] [address], * (ABNORMAL) Comprehensive Metabolic Panel (07/20/2025 11:03 PM EDT) Glucose 92 65 - 99 mg/dL 07/20/2025 11:33 PM EDT [facility] BUN 14.0 6.0 - 20.0 mg/dL 07/20/2025 11:33 PM EDT [facility] Creatinine 0.65 0.57 - 1.00 mg/dL 07/20/2025 11:33 PM EDT [facility] Sodium 136 136 - 145 mmol/L 07/20/2025 11:33 PM EDT [facility] Potassium 3.7 3.5 - 5.2 mmol/L 07/20/2025 11:33 PM EDT [facility] Chloride 104 98 - 107 mmol/L 07/20/2025 11:33 PM EDT [facility] CO2 19.4(L) 22.0 - 29.0 mmol/L 07/20/2025 11:33 PM EDT [facility] Calcium 9.2 8.6 - 10.5 mg/dL 07/20/2025 11:33 PM EDT [facility] Total Protein 7.2 6.0 - 8.5 g/dL 07/20/2025 11:33 PM EDT [facility] Albumin 4.6 3.5 - 5.2 g/dL 07/20/2025 11:33 PM EDT [facility] ALT (SGPT) 24 1 - 33 U/L 07/20/2025 11:33 PM EDT [facility] AST (SGOT) 22 1 - 32 U/L 07/20/2025 11:33 PM EDT [facility] Alkaline Phosphatase 85 39 - 117 U/L 07/20/2025 11:33 PM EDT [facility] Total Bilirubin 0.4 0.0 - 1.2 mg/dL 07/20/2025 11:33 PM EDT [facility] Globulin 2.6 gm/dL 07/20/2025 11:33 PM EDT [facility] A/G Ratio 1.8 g/dL 07/20/2025 11:33 PM EDT [facility] BUN/Creatinine Ratio 21.5 7.0 - 25.0 07/20/2025 11:33 PM EDT [facility] Anion Gap 12.6 5.0 - 15.0 mmol/L 07/20/2025 11:33 PM EDT [facility] eGFR 130.3 >60.0 mL/min/1.7 3 07/20/2025 11:33 PM EDT [facility] Blood Venipuncture / Unknown 07/20/2025 11:03 PM EDT 07/20/2025 11:07 PM EDT [facility] - 07/20/2025 11:33 PM EDT GFR Categories in Chronic Kidney [...] does not include race as a factor Marvin Arias MD LAB BLOOD ORDERABLES Final Res ult [facility]
[address] [place] [id number], [place] [phone] documented in this encounter Visit Diagnoses Diagnosis Syncope and collapse- Primary POTS (postural orthostatic tachycardia syndrome) Unspecified tachycardia documented in this encounter Administered Medications Inactive Administered Medications - up to 3 most recent administrations Medication Order MAR Action Action Date Dose Rate Site ketorolac (TORADOL) injection 15 mg 15 mg, Intravenous, Once, On 07/20/25 at 2315, For 1 dose, Based on patient request - if ordered for moderate or severe pain, provider allows for administration of a medication prescribed for a lower pain scale. (BKC) If given for pain, use the following pain scale: Mild Pain = Pain Score of 1-3, CPOT 1-2 Moderate Pain = Pain Score of 4-6, CPOT 3-4 Severe Pain = Pain Score of 7-10, CPOT 5-8 Given 07/20/2025 11:35 PM EDT 15 mg sodium chloride 0.9 % bolus 500 mL 500 mL, Intravenous, at 1,000 mL/hr, Administer over 0.5 Hours, Once, On 07/20/25 at 2314, For 1 dose New Bag 07/20/2025 11:34 PM EDT 500 mL 1000 mL/hr sodium chloride 0.9 % flush 10 mL 10 mL, Intravenous, As Needed, Line Care, Starting on 07/20/25 at 2258 documented in this encounter Active and Recently Administered Medications Times are shown in EDT. Scheduled Medication Order 07/19/2025 07/20/2025 07/21/2025 ketorolac (TORADOL) injection 15 mg (COMPLETED) 15 mg, Intravenous, Once, On 07/20/25 at 2315, For 1 dose, Based on patient request - if ordered for moderate or severe pain, provider allows for administration of a medication prescribed for a lower pain scale. (BKC) If given for pain, use the following pain scale: Mild Pain = Pain Score of 1-3, CPOT 1-2 Moderate Pain = Pain Score of 4-6, CPOT 3-4 Severe Pain = Pain Score of 7-10, CPOT 5-8 2335 (Given - Provider: Margarita Moctezuma RN) sodium chloride 0.9 % bolus 500 mL (COMPLETED) 500 mL, Intravenous, at 1,000 mL/hr, Administer over 0.5 Hours, Once, On 07/20/25 at 2314, For 1 dose 2334 (New Bag - Provider: Margarita Moctezuma RN) 0017 (Stopped - Provider: Margarita Moctezuma RN) PRN Medication Order 07/19/2025 07/20/2025 07/21/2025 sodium chloride 0.9 % flush 10 mL(Linked Group 1) 10 mL, Intravenous, As Needed, Line Care, Starting on 07/20/25 at 2258 Linked Groups Order Group 1: Insert Peripheral IV (CANCELED) STAT, Once, On 07/20/25 at 2259, For 1 occurrence And sodium chloride 0.9 % flush 10 mLJump to med 10 mL, Intravenous, As Needed, Line Care, Starting on 07/20/25 at 2258 documented in this encounter Care Teams Attendance Clerk Relationship Specialty Start Date End Date Stacy Lake MD [address] [place] [address] PCP - General Family Medicine 02/08/22 documented as of this encounter
--- OUTSIDE RECORDS SUMMARY | 2025-07-21 17:46 | XMS_ITS | Encounter Summary ---
[facility] Address [address] [place] [address] Care Team Providers Care Associate Director Name Role Phone Stacy Lake MD Primary Care Provider + Reason for Visit * Reason Comments Syncope Encounter Details Date Type Department Care Team (Late st Contact Info) Description 07/21/2025 6:46 PM EDT - 07/21/2025 8:58 PM EDT Emergency [facility] [address] [place] [phone] Johnyn Carl MD [address] [place] [address] Syncope, unspecified syncope type (Primary Dx) Discharge Disposition: Home or Self Care Social [...] file Travel History Travel Start Travel End [place] 07/21/2025 08/20/2025 documented as of this encounter Last Filed Vital Signs Vital Sign Reading Time Taken Comments Blood Pressure 122/77 07/21/2025 8:30 PM EDT Pulse 81 07/21/2025 8:30 PM EDT Temperature 37 C (98.6 F) 07/21/2025 6:56 PM EDT Respiratory Rate 18 07/21/2025 6:56 PM EDT Oxygen Saturation 97% 07/21/2025 7:00 PM EDT Inhaled Oxygen Concentration - - Weight 113 kg (249 lb) 07/21/2025 6:56 PM EDT Height 170.2 cm (5' 7 ) 07/21/2025 6:56 PM EDT Body Mass Index 39 07/21/2025 6:56 PM EDT documented in this encounter Functional Status * Calculated C-SSRS Risk Score (Lifetime/Recent) Answer Date of Assessment Author No Risk Indicated 07/21/2025 6:58 PM EDT Sally Alarcon RN * [place] Suicide Severity Rating Scale (Screener/Recent Self-Report) Question Answer Date of Assessment Author 1. Wish to be (Past 1 Month) No 025 6:58 PM EDT Sally Alarcon RN 2. Non-Specific Active Suici prudencio Thoughts (Past 1 Month) No 07/21/2025 6:58 PM EDT Maria Isabel Alarcon RN 6. Suicidal Behavior (Lifetime) No 6:58 PM EDT Sally Alarcon RN documented as of this encounter Discharge Instructions * Attachments The following attachments cannot be sent through Care Everywhere. * Syncope Adult ([place]ese) documented in this encounter Medications at Time [...] mouth 2 (Two) Times a Day. 08/13/20 documented as of this encounter ED Notes * Sina Thibodeaux Jr., THERESA - 07/21/2025 7:22 PM EDT Images from the original note were not included. Subjective History of Present Illness: Chief Complaint: Possible syncopal episode History of Present Illness: 19-year-old female brought in for possible syncopal episode, EMS reports that the initial call was for unresponsiveness, they state that she has a history of POTS syndrome, EMS also reports that they get frequent EMS calls to the patient's dorm. EMS reports that there was another crew that was at the patient's dorm approximately 25 minutes prior to their arrival, and the patient refused transport at that time. She reports that she went to take the trash out, and did not feel well shortly after. EMS reports that the roommate was present and that she became unresponsive briefly and they state when they got there she appeared to have snoring respirations, but came to after several minutes. EMS also reports that she was hypertensive, and she is normally normotensive. She denies any drug or alcohol use. No injury. Onset: Gradual Duration: Several hours prior to arrival Exacerbating / Alleviating factors: Patient states she was taking the trash out when the episode occurred Associated symptoms: She now complains of a headache. Nurses Notes reviewed and agree, including vitals, allergies, social history and prior medical history. REVIEW OF SYSTEMS: All systems reviewed and not pertinent unless noted. Review of Systems Neurological: Positive for dizziness and syncope. All other systems reviewed and are negative. Past Medical History: Diagnosis Date Hypothyroid POTS [...] pertinent family history. Objective Physical Exam: BP 122/77 Pulse 81 Temp 98.6 ??F (37 ??C) (Oral) Resp 18 Ht 170.2 cm (67 ) Wt 113 kg (249lb) LMP 07/11/2025 (Exact Date) SpO2 97% BMI 39.00 kg/m?? Physical Exam Vitals and nursing note reviewed. Constitutional: Appearance: She is well-developed. HENT: Head: Normocephalic and atraumatic. Cardiovascular: Rate and Rhythm: Normal rate and regular rhythm. Pulmonary: Effort: Pulmonary effort is normal. Breath sounds: Normal breath sounds. Abdominal: Palpations: Abdomen is soft. Musculoskeletal: General: Normal range of motion. Cervical back: Normal range of motion and neck supple. Skin: General: Skin is warm and dry. Neurological: Mental Status: She is alert and oriented to person, place, and time. Deep Tendon Reflexes: Reflexes are normal and symmetric. Procedures ED Course: ED Course as of 07/22/25 0144 Sun Jul 21, [id number] EKG is obtained and based on my independent reading demonstrates normal sinus rhythm without acute ischemic changes. Patient has normal CA, QRS and QT intervals. [WP] 1931 Review of previous non ED visits, prior labs, prior imaging, available notes from prior evaluations or visits with specialists, medication list, allergies, past medical history, past surgical history Reviewed recent records including previous ED visits, office visits as well as cardiology pertaining to POTS syndrome, multiple episodes of syncope. I reviewed the records, recent labs, and medications. [CS] 1958 I Personally reviewed all laboratory studies performed in the emergency department [CS] ED Course User Index [CS] Sina Thibodeaux Jr., PA-C [WP] Johnny Carl MD Lab Results (last 24 hours) Procedure Component Value Units Date/Time CBC Auto Differential [[id number]] (Normal) Collected: 07/21/251906 Specimen: Blood Updated: 07/21/251914 WBC 8.19 10*3/mm3 RBC 4.02 10*6/mm3 Hemoglobin 12.1 g/dL Hematocrit 35.6 % MCV 88.6 fL MCH 30.1 pg MCHC 34.0 g/dL RDW 13.6 % RDW-SD 44.0 fl MPV 10.5 fL Platelets 331 10*3/mm3 Neutrophil % 57.1 % Lymphocyte % 31.6 % Monocyte % 8.8 % Eosinophil % 1.5 % Basophil % 0.6 % Immature Grans % 0.4 % Neutrophils, Absolute 4.68 10*3/mm3 Lymphocytes, Absolute 2.59 10*3/mm3 Monocytes, Absolute 0.72 10*3/mm3 Eosinophils, Absolute 0.12 10*3/mm3 Basophils, Absolute 0.05 10*3/mm3 Immature Grans, Absolute 0.03 10*3/mm3 nRBC 0.0 /100 WBC Comprehensive Metabolic Panel [[id number]] (Abnormal) Collected: 07/21/251906 Specimen: Blood Updated: 07/21/251929 Glucose 104 mg/dL BUN 16.0 mg/dL Creatinine 0.64 mg/dL Sodium 140 mmol/L Potassium 3.7 mmol/L Comment: Slight hemolysis detected by analyzer. Result may be falsely elevated. Chloride 110 mmol/L CO2 20.3 mmol/L Calcium 8.7 mg/dL Total Protein 6.8 g/dL Albumin 4.3 g/dL ALT (SGPT) 23 U/L AST (SGOT) 23 U/L Alkaline Phosphatase 79 U/L Total Bilirubin 0.5 mg/dL Globulin 2.5 gm/dL A/G Ratio 1.7 g/dL BUN/Creatinine Ratio 25.0 Anion Gap 9.7 mmol/L eGFR 130.7 mL/min/1.73 Narrative: GFR Categories in Chronic Kidney [...] does not include race as a factor Magnesium [[id number]] (Normal) Collected: 07/21/251906 Specimen: Blood Updated: 07/21/251929 Magnesium 2.0 mg/dL Ethanol [[id number]] Collected: 07/21/251906 Specimen: Blood Updated: 07/21/251929 Ethanol <10 mg/dL Ethanol % <0.010 % Narrative: Not for legal purposes. No radiology results from the last 24 hrs Medical Decision Making Problems Addressed: Syncope, unspecified syncope type: acute illness or injury Amount and/or Complexity of Data Reviewed External Data Reviewed: labs, radiology and notes. Labs: ordered. Decision-making details documented in ED Course. ECG/medicine tests: ordered. Decision-making details documented in ED Course. Final diagnoses: Syncope, unspecified syncope type Disposition DISCHARGE Patient discharged in stable condition. Reviewed implications of results, diagnosis, meds, responsibility to follow up, warning signs and symptoms of possible worsening, potential complications and reasons to return to ER. Patient/Family voiced understanding of above instructions. Discussed plan for discharge, as there is no emergent indication for admission. Pt/family is agreeable and understands need for follow up and possible repeat testing. Pt/family is aware that discharge does not mean that nothing is wrong but that it indicates no emergency is currently present that requires admission and they must continue care with follow-up as given below or with a physician of their choice. FOLLOW-UP [facility] [address] [place] [phone] If symptoms worsen Medication List No changes were made to your prescriptions during this visit. Sina Thibodeaux Jr., PA-C 07/22/25 0144 Cosigned by Johnny Carl MD at 07/23/2025 6:11 AM EDT Associated attestation - Johnny Carl MD - 07/23/2025 6:11 AM EDT SUPERVISE: For this patient encounter, I reviewed the APC's documentation, treatment plan, and medical decision making. Johnny Carl MD 07/23/2025 06:11 EDT documented in this encounter Plan of Treatment Not on file documented as of this encounter Procedures Procedure Name Priority Date/Time Associated Diagnosis Comments ECG 12-LEAD STAT 07/21/2025 7:14 PM EDT CBC WITH AUTO DIFFERENTIAL STAT 07/21/2025 7:07 PM EDT MAGNESIUM STAT 07/21/2025 7:07 PM EDT ETHANOL STAT 07/21/2025 7:07 PM EDT COMPREHENSIVE METABOLIC PANEL STAT 07/21/2025 7:07 PM EDT documented in this encounter Results * ECG 12 Lead Other; altered (07/21/2025 7:14 PM EDT) us Sina Thibodeaux Jr., PA-C ECG ORDERABLES Final Result * Ethanol (07/21/2025 7:07 PM EDT) Ethanol <10 0 - 10 mg/dL 07/21/2025 7:30 PM EDT [facility] Ethanol % <0.010 % 07/21/2025 7:30 PM EDT [facility] Blood Venipuncture / Unknown 07/21/2025 7:07 PM EDT 07/21/2025 7:12 PM EDT Narrative [facility] - 07/21/2025 7:30 PM EDT Not for legal purposes. us Sina Thibodeaux Jr., PA-C LAB BLOOD ORDERABLES Final Result Performing Organization Address City/[facility]/ZIP Co de Phone Number [facility]
[address] [phone], * Magnesium (07/21/2025 7:07 PM EDT) Magnesium 2.0 1.7 - 2.2 mg/dL 07/21/2025 7:30 PM EDT [facility] Blood Venipuncture / Unknown 07/21/2025 7:07 PM EDT 07/21/2025 7:12 PM EDT Sina Thibodeaux Jr., PA-C LAB BLOOD ORDERABLES Final Result Performing Organization Address [facility] Co de Phone Number [facility]
[address] [place] [address], * (ABNORMAL) Comprehensive Metabolic Panel (07/21/2025 7:07 PM EDT) Glucose 104(H) 65 - 99 mg/dL 07/21/2025 7:30 PM EDT [facility] BUN 16.0 6.0 - 20.0 mg/dL 07/21/2025 7:30 PM EDT [facility] Creatinine 0.64 0.57 - 1.00 mg/dL 07/21/2025 7:30 PM EDT [facility] Sodium 140 136 - 145 mmol/L 07/21/2025 7:30 PM EDT [facility] Potassium 3.7 3.5 - 5.2 mmol/L 07/21/2025 7:30 PM EDT [facility] Comment:Slight hemolysis det ected by analyzer. Result may be falsely elevated. Chloride 110(H) 98 - 107 mmol/L 07/21/2025 7:30 PM EDT [facility] CO2 20.3(L) 22.0 - 29.0 mmol/L 07/21/2025 7:30 PM EDT [facility] Calcium 8.7 8.6 - 10.5 mg/dL 07/21/2025 7:30 PM EDT [facility] Total Protein 6.8 6.0 - 8.5 g/dL 07/21/2025 7:30 PM T [facility] Albumin 4.3 3.5 - 5.2 g/dL 07/21/2025 7:30 PM T [facility] ALT (SGPT) 23 1 - 33 U/L 07/21/2025 7:30 PM EDT [facility] AST (SGOT) 23 1 - 32 U/L 07/21/2025 7:30 PM EDT [facility] Alkaline Phosphatase 79 39 - 117 U/L 07/21/2025 7:30 PM T [facility] Total Bilirubin 0.5 0.0 - 1.2 mg/dL 07/21/2025 7:30 PM [facility] Globulin 2.5 gm/dL 07/21/2025 7:30 PM T [facility] A/G Ratio 1.7 g/dL 07/21/2025 7:30 PM T [facility] BUN/Creatinine Ratio 25.0 7.0 - 25.0 07/21/2025 7:30 PM [facility] Anion Gap 9.7 5.0 - 15.0 mmol/L 07/21/2025 7:30 PM [facility] eGFR 130.7 >60.0 mL/min/1.7 3 07/21/2025 7:30 PM T [facility] Blood Venipuncture / Unknown 07/21/2025 7:07 PM EDT 07/21/2025 7:12 PM EDT [facility] - 07/21/2025 7:30 PM EDT GFR Categories in Chronic Kidney [...] does not include race as a factor Sina Thibodeaux Jr., PA-C LAB BLOOD ORDERABLES Final Result [facility]
[address] [place] [address], * CBC Auto Differential (07/21/2025 7:07 PM EDT) WBC 8.19 3.40 - 10.80 10*3/mm3 07/21/2025 7:15 PM EDT [facility] RBC 4.02 3.77 - 5.28 10*6/mm3 07/21/2025 7:15 PM EDT [facility] Hemoglobin 12.1 12.0 - 15.9 g/dL 07/21/2025 7:15 PM EDT [facility] Hematocrit 35.6 34.0 - 46.6 % 07/21/2025 7:15 PM EDT [facility] MCV 88.6 79.0 - 97.0 fL 07/21/2025 7:15 PM EDT [facility] MCH 30.1 26.6 - 33.0 pg 07/21/2025 7:15 PM EDT [facility] MCHC 34.0 31.5 - 35.7 g/dL 07/21/2025 7:15 PM EDT [facility] RDW 13.6 12.3 - 15.4 % 07/21/2025 7:15 PM EDT [facility] RDW-SD 44.0 37.0 - 54.0 fl 07/21/2025 7:15 PM EDT [facility] MPV 10.5 6.0 - 12.0 fL 07/21/2025 7:15 PM EDT [facility] Platelets 331 140 - 450 10*3/mm3 07/21/2025 7:15 PM EDT [facility] Neutrophil % 57.1 42.7 - 76.0 % 07/21/2025 7:15 PM EDT [facility] Lymphocyte % 31.6 19.6 - 45.3 % 07/21/2025 7:15 PM EDT [facility] Monocyte % 8.8 5.0 - 12.0 % 07/21/2025 7:15 PM EDT [facility] Eosinophil % 1.5 0.3 - 6.2 % 07/21/2025 7:15 PM EDT [facility] Basophil % 0.6 0.0 - 1.5 % 07/21/2025 7:15 PM EDT [facility] Immature Grans % 0.4 0.0 - 0.5 % 07/21/2025 7:15 PM EDT [facility] Neutrophils, Absolute 4.68 1.70 - 7.00 10*3/mm3 07/21/2025 7:15 PM EDT [facility] Lymphocytes, Absolute 2.59 0.70 - 3.10 10*3/mm3 07/21/2025 7:15 PM EDT [facility] Monocytes, Absolute 0.72 0.10 - 0.90 10*3/mm3 07/21/2025 7:15 PM EDT [facility] Eosinophils, Absolute 0.12 0.00 - 0.40 10*3/mm3 07/21/2025 7:15 PM EDT [facility] Basophils, Absolute 0.05 0.00 - 0.20 10*3/mm3 07/21/2025 7:15 PM EDT [facility] Immature Grans, Absolute 0.03 0.00 - 0.05 10*3/mm3 07/21/2025 7:15 PM EDT [facility] nRBC 0.0 0.0 - 0.2 /100 WBC 07/21/2025 7:15 PM EDT [facility] Blood Venipuncture / Unknown 07/21/2025 7:07 PM EDT 07/21/2025 7:12 PM EDT Sina Thibodeaux Jr., PA-C LAB BLOOD ORDERABLES Final Result [facility]
[address] [place] [address], documented in this encounter Visit Diagnoses Diagnosis Syncope, unspecified syncope type- Primary documented in this encounter Administered Medications Inactive Administered Medications - up to 3 most recent administrations Medication Order MAR Action Action Date Dose Rate Site sodium chloride 0.9 % bolus 1,000 mL 1,000 mL, Intravenous, at 1,000 mL/hr, Administer over 1 Hours, Once, On 07/21/25 at 1912, For 1 dose New Bag 07/21/2025 7:14 PM EDT 1,000 mL 100 0 mL/hr documented in this encounter Active and Recently Administered Medications Times are shown in EDT. Scheduled Medication Order 07/19/2025 07/20/2025 07/21/2025 sodium chloride 0.9 % bolus 1,000 mL (COMPLETED) 1,000 mL, Intravenous, at 1,000 mL/hr, Administer over 1 Hours, Once, On 07/21/25 at 1912, For 1 dose 1913 (New Bag - Prov ider: Anna Peralta RN)2057 (Stopped - Provider: Anna Peralta RN) documented in this encounter Care Teams Associate Director Relationship Specialty Start Date End Date Stacy Lake MD [address] [place] [address] PCP - General Family Medicine 02/08/22 documented as of this encounter
--- OUTSIDE RECORDS SUMMARY | 2025-07-23 22:44 | XMS_ITS | Encounter Summary ---
[facility] Address [address] [place] [address] Care Team Providers Care Seo Executive Name Role Phone Stacy Lake MD Primary Care Provider + Reason for Visit * Reason Comments Wellness Check Encounter Details Date Type Department Care Team (Late st Contact Info) Description 07/23/2025 11:44 PM EDT - 07/24/2025 12:54 AM EDT Emergency [facility] EMERGENCY DEPARTMENT [address] [place] [address] Marvin Arias MD [address] [place] [address] Syncope and collapse (Primary Dx); Recurrent conversion disorder Discharge Disposition: Home or Self Care Social History Tobacco Use Types Packs/Day Years Used Date Smoking Tobacco: Never Smokeless Tobacco: Never Abuse Screen Answer Date Recorded Feels Unsafe at Home or Work/School no 07/23/2025 Feels Threatened by Someone no 06/26 Does Anyone Try to Keep You From Having Contact with Others or Doing Things Outside Your Home? no 07/23/2025 Physical Signs of Abuse Present no 07/23/2025 Comments No Sex and Gender Information Value Date Recorded Sex Assigned at Not on file Legal Sex Female 5:07 PM EDT Gender Identity Not on file Sexual Orientation Not on file Travel History Travel Start Travel End [place] 07/21/2025 08/20/2025 documented as of this encounter Last Filed Vital Signs Vital Sign Reading Time Taken Comments Blood Pressure 104/73 07/24/2025 12:30 AM EDT Pulse 87 07/24/2025 12:30 AM EDT Temperature 36.8 C (98.3 F) 07/24/2025 12:00 AM EDT Respiratory Rate 16 07/24/2025 12:00 AM EDT Oxygen Saturation 97% 07/24/2025 12:30 AM EDT Inhaled Oxygen Concentration - - Weight - - Height - - Body Mass Index - - documented in this encounter Functional Status * Calculated C-SSRS Risk Score (Lifetime/Recent) Answer Date of Assessment Author No Risk Indicated 07/23/2025 11:51 PM EDT Graciela Bedoya RN * [place] Suicide Severity Rating Scale (Screener/Recent Self-Report) Question Answer Date of Assessment Author 1. Wish to be (Past 1 Month) No 07/23/2025 11:51 PM EDT Kelli Hawkins RN 2. Non-Specific Active Suici prudencio Thoughts (Past 1 Month) No 07/23/2025 11:51 PM EDT Chele Hawkins RN 6. Suicidal Behavior (Lifetime) No 11:51 PM EDT Graciela Hawkins RN documented as of this encounter Discharge Instructions * Attachments The following attachments cannot be sent through Care Everywhere. * Functional Neurologic Disorder (Indonesian) documented in this encounter Medications at Time [...] ED Notes * Marvin Arias MD - 07/23/2025 11:51 PM EDT Images from the original note were not included. [facility] EMERGENCY DEPARTMENT Emergency Department Encounter Emergency Medicine Physician Note Pt Name: Verenice Redding Pt : 2005 Room Number: 07/02 Date of encounter: 07/23/2025 PCP: Stacy Lake MD ED Provider: Marvin Arias MD Historian: Patient and EMS HPI: Chief Complaint: Syncope Context: Verenice Redding is a 19 y.o. female who presents to the ED c/o syncope. Patient presents to emergency department tonight after reportedly having over 10 episodes of possible POTS flares andsyncope. Has been here approximately 4 times in the past 7 days for the same symptoms. States she is currently being evaluated by electrophysiology cardiology and they have her scheduled for PNES testing in July. No reported chest pain. Remained hemodynamically stable throughout transport with EMS and EMS did not note any significant tachycardia or hypotension. PAST MEDICAL HISTORY Past Medical History: Diagnosis [...] -- -- Physical Exam General: Awake, alert, obese, no acute distress HEENT: Atraumatic, normocephalic, EOMI, PERRLA, mucous membranes moist NECK: Supple, atraumatic Cardiovascular: Regular rate, regular rhythm, no murmurs, rubs, or gallops. [...] Recent Results (from the past 24 hours) Basic Metabolic Panel Collection Time: 07/24/25 12:07 AM Specimen: Blood Result Value Ref Range Glucose 85 65 - 99 mg/dL BUN 7.0 6.0 - 20.0 mg/dL Creatinine 0.59 0.57 - 1.00 mg/dL Sodium 139 136 - 145 mmol/L Potassium 3.6 3.5 - 5.2 mmol/L Chloride 105 98 - 107 mmol/L CO2 18.2 (L) 22.0 - 29.0 mmol/L Calcium 9.0 8.6 - 10.5 mg/dL BUN/Creatinine Ratio 11.9 7.0 - 25.0 Anion Gap 15.8 (H) 5.0 - 15.0 mmol/L eGFR 133.3 >60.0 mL/min/1.73 CBC Auto Differential Collection Time: 07/24/25 12:07 AM Specimen: Blood Result Value Ref Range WBC 9.83 3.40 - 10.80 10*3/mm3 RBC 4.24 3.77 - 5.28 10*6/mm3 Hemoglobin 12.7 12.0 - 15.9 g/dL Hematocrit 37.1 34.0 - 46.6 % MCV 87.5 79.0 - 97.0 fL MCH 30.0 26.6 - 33.0 pg MCHC 34.2 31.5 - 35.7 g/dL RDW 13.6 12.3 - 15.4 % RDW-SD 43.9 37.0 - 54.0 fl MPV 10.4 6.0 - 12.0 fL Platelets 364 140 - 450 10*3/mm3 Neutrophil % 59.9 42.7 - 76.0 % Lymphocyte % 31.4 19.6 - 45.3 % Monocyte % 6.7 5.0 - 12.0 % Eosinophil % 1.1 0.3 - 6.2 % Basophil % 0.6 0.0 - 1.5 % Immature Grans % 0.3 0.0 - 0.5 % Neutrophils, Absolute 5.88 1.70 - 7.00 10*3/mm3 Lymphocytes, Absolute 3.09 0.70 - 3.10 10*3/mm3 Monocytes, Absolute 0.66 0.10 - 0.90 10*3/mm3 Eosinophils, Absolute 0.11 0.00 - 0.40 10*3/mm3 Basophils, Absolute 0.06 0.00 - 0.20 10*3/mm3 Immature Grans, Absolute 0.03 0.00 - 0.05 10*3/mm3 nRBC 0.0 0.0 - 0.2 /100 WBC High Sensitivity Troponin T Collection Time: 07/24/25 12:07 AM Specimen: Blood Result Value Ref Range HS Troponin T <6 <14 ng/L D-dimer, Quantitative Collection Time: 07/24/25 12:07 AM Specimen: Blood Result Value Ref Range D-Dimer, Quantitative <0.27 0.00 - 0.50 MCGFEU/mL RADIOLOGY No Radiology Exams Resulted Within Past 24 Hours PROCEDURES Procedures ECG 12 Lead Syncope Final Result MEDICATIONS GIVEN IN ER Medications sodium chloride 0.9 % flush 10 mL (has no administration in time range) MEDICAL DECISION MAKING, PROGRESS, and CONSULTS All [...] who presents to the ED c/o syncope. Brought in by EMS. Awake alert and oriented x 4 with GCS of 15 on arrival. Patient has extensive history with frequent ER visits for syncope and possible POTS. Has been seen 4 times in the ER over the past week for similar symptoms with negative workup each time on chart review. Feel symptoms may be secondary to pseudoseizures or other psychosomatic syndrome rather than cardiac abnormality or arrhythmia given largely negative workups multiple times. Differential also includes arrhythmia, electrolyte imbalance, dehydration, pulmonary embolism. EKG obtained which was personally interpreted showing normal sinus rhythm with rate of 75 with no significant QT prolongation or other arrhythmia. No significant QRS widening or ST elevations. Labs show no significant leukocytosis or anemia. No critical electrolyte imbalances. Negative troponin less than 6 along with negative D-dimer undetectably low less than 0.27. Given patient's frequent ER visits with negative workups along with no witnessed tachycardia or hypotension throughout today's episodes, concern for possibility of conversion disorder rather than POTS. 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 No witnessed seizure activity tonight, epilepsy felt to be much less likely as patienthas no postictal phase and has full memory of the events. Discussed potential for conversion disorder and patient voiced understanding, stating she does haveappointment with her therapist later this week and will talk to them about it as well. Patient remained stable in emergency department. Advised on importance of close follow-up with primary care provider and cardiology as an outpatient as scheduled. Patient voiced understanding and wasdischarged. Orders placed during this visit: Orders Placed This Encounter Procedures Basic Metabolic Panel CBC Auto Differential High Sensitivity Troponin T D-dimer, Quantitative ECG 12 Lead Syncope Insert Peripheral IV CBC & Differential ED Course: Shared Decision Making: After my consideration of clinical presentation and any laboratory/radiology studies obtained, I discussed the findings with the patient/patient outreach representative who is in agreement with the treatment plan and the final disposition. Risks and benefits of discharge and/or observation/admission were discussed. OF 01:34 EDT VITALS: BP - 104/73 HR - 87 TEMP - 98.3 ??F (36.8 ??C) (Oral) O2 SATS - 97% DIAGNOSIS Final diagnoses: Syncope and collapse Recurrent conversion disorder DISPOSITION Discharge Please note that portions of this document were completed with voice recognition software. Marvin Arias MD 07/24/25 0134 documented in this encounter Plan of Treatment Not on file documented as of this encounter Procedures Procedure Name Priority Date/Time Associated Diagnosis Comments CBC WITH AUTO DIFFERENTIAL STAT 07/24/2025 12:07 AM EDT TROPONIN STAT 07/24/2025 12:07 AM EDT D-DIMER, QUANTITATIVE STAT 07/24/2025 12:07 AM EDT CBC AND DIFFERENTIAL STAT 07/24/2025 12:07 AM EDT BASIC METABOLIC PANEL STAT 07/24/2025 12:07 AM EDT ECG 12-LEAD STAT 07/23/2025 11:57 PM EDT documented in this encounter Results * D-dimer, Quantitative (07/24/2025 12:07 AM EDT) [facility] D-Dimer, Quantitative <0.27 0.00 - 0.50 MCGFEU/mL 07/24/2025 12:41 AM EDT [facility] Blood Venipuncture / Unknown 07/24/2025 12:07 AM EDT 07/24/2025 12:11 AM EDT [facility] - 07/24/2025 12:41 AM EDT According to the assay stone fabricator's published package insert, a normal (<0.50 MCGFEU/mL) D-dimer result in conjunction with a non-high clinical probability assessment, excludes deep vein thrombosis (DVT) and pulmonary embolism (PE) with high sensitivity. D-dimer values increase with age and this can make VTE exclusion of an older population difficult. To address this, the [employer], based on best available [...] an 80 year old 0.80 MCGFEU/mL. us Marvin Arias MD LAB BLOOD ORDERABLES Final Res ult Performing Organization Address [facility] de Phone Number [facility]
[address] [place] [address], [place] [phone] * High Sensitivity Troponin T (07/24/2025 12:07 AM EDT) HS Troponin T <6 <14 ng/L 07/24/2025 12:33 AM EDT [facility] Blood Venipuncture / Unknown 07/24/2025 12:07 AM EDT 07/24/2025 12:11 AM EDT [facility] - 07/24/2025 12:33 AM EDT High Sensitive Troponin T Reference Range: [...] due to an underlying chronic condition. us Marvin Arias MD LAB BLOOD ORDERABLES Final Res ult Performing Organization Address [facility] de Phone Number [facility]
[address] [place] [id number], [place] [phone] * CBC Auto Differential (07/24/2025 12:07 AM EDT) [facility] WBC 9.83 3.40 - 10.80 10*3/mm3 07/24/2025 12:14 AM EDT [facility] RBC 4.24 3.77 - 5.28 10*6/mm3 07/24/2025 12:14 AM EDT [facility] Hemoglobin 12.7 12.0 - 15.9 g/dL 07/24/2025 12:14 AM EDT [facility] Hematocrit 37.1 34.0 - 46.6 % 07/24/2025 12:14 AM EDT [facility] MCV 87.5 79.0 - 97.0 fL 07/24[facility]2025 [facility] MCH 30.0 26.6 - 33.0 pg 07/24/2025 12:14 AM T [facility] MCHC 34.2 31.5 - 35.7 g/dL 07/24/2025 12:14 AM [facility] RDW 13.6 12.3 - 15.4 % 07/24/2025 12:14 AM [facility] RDW-SD 43.9 37.0 - 54.0 fl 07/24/2025 12:14 AM [facility] MPV 10.4 6.0 - 12.0 fL 07/24/2025 12:14 AM [facility] Platelets 364 140 - 450 10*3/mm3 07/24/2025 12:14 AM T [facility] Neutrophil % 59.9 42.7 - 76.0 % 07/24/2025 12:14 AM T [facility] Lymphocyte % 31.4 19.6 - 45.3 % 07/24/2025 12:14 AM [facility] Monocyte % 6.7 5.0 - 12.0 % 07/24/2025 12:14 AM EDT [facility] Eosinophil % 1.1 0.3 - 6.2 % 07/24/2025 12:14 AM EDT [facility] Basophil % 0.6 0.0 - 1.5 % 07/24/2025 12:14 AM EDT [facility] Immature Grans % 0.3 0.0 - 0.5 % 07/24/2025 12:14 AM EDT [facility] Neutrophils, Absolute 5.88 1.70 - 7.00 10*3/mm3 07/24/2025 12:14 AM EDT [facility] Lymphocytes, Absolute 3.09 0.70 - 3.10 10*3/mm3 07/24/2025 12:14 AM EDT [facility] Monocytes, Absolute 0.66 0.10 - 0.90 10*3/mm3 07/24/2025 12:14 AM EDT [facility] Eosinophils, Absolute 0.11 0.00 - 0.40 10*3/mm3 07/24/2025 12:14 AM EDT [facility] Basophils, Absolute 0.06 0.00 - 0.20 10*3/mm3 07/24/2025 12:14 AM EDT [facility] Immature Grans, Absolute 0.03 0.00 - 0.05 10*3/mm3 07/24/2025 12:14 AM EDT [facility] nRBC 0.0 0.0 - 0.2 /100 WBC 07/24/2025 12:14 AM [facility] Blood Venipuncture / Unknown 07/24/2025 12:07 AM EDT 07/24/2025 12:11 AM EDT Marvin Arias MD LAB BLOOD ORDERABLES Final Res ult [facility]
[address] [place] [address], * (ABNORMAL) Basic Metabolic Panel (07/24/2025 12:07 AM EDT) [facility] Glucose 85 65 - 99 mg/dL 07/24/2025 12:34 AM [facility] BUN 7.0 6.0 - 20.0 mg/dL 07/24/2025 12:34 AM [facility] Creatinine 0.59 0.57 - 1.00 mg/dL 07/24/2025 12:34 AM [facility] Sodium 139 136 - 145 mmol/L 07/24/2025 12:34 AM [facility] Potassium 3.6 3.5 - 5.2 mmol/L 07/24/2025 12:34 AM [facility] Chloride 105 98 - 107 mmol/L 07/24/2025 12:34 AM [facility] CO2 18.2(L) 22.0 - 29.0 mmol/L 07/24/2025 12:34 AM [facility] Calcium 9.0 8.6 - 10.5 mg/dL 07/24/2025 12:34 AM [facility] BUN/Creatinine Ratio 11.9 7.0 - 25.0 07/24/2025 12:34 AM [facility] Anion Gap 15.8(H) 5.0 - 15.0 mmol/L 07/24/2025 12:34 AM [facility] eGFR 133.3 >60.0 mL/min/1.7 3 07/24/2025 12:34 AM [facility] Blood Venipuncture / Unknown 07/24/2025 12:07 AM EDT 07/24/2025 12:11 AM [facility] - 07/24/2025 12:34 AM EDT GFR Categories in Chronic Kidney Disease [...] does not include race as a factor us Marvin Arias MD LAB BLOOD ORDERABLES Final Res ult [facility]
[address] [place] [address], * ECG 12 Lead Syncope (07/23/2025 11:57 PM EDT) us Marvin Arias MD ECG ORDERABLES Final Result documented in this encounter Visit Diagnoses Diagnosis Syncope and collapse- Primary Recurrent conversion disorder Conversion disorder documented in this encounter Administered Medications Inactive Administered Medications - up to 3 most recent administrations Medication Order MAR Action Action Date Dose Rate Site sodium chloride 0.9 % flush 10 mL 10 mL, Intravenous, As Needed, Line Care, Starting on Tue07/23/25 at 2350 documented in this encounter Active and Recently Administered Medications Times are shown in EDT. PRN Medication Order 07/22/2025 07/23/2025 07/24/2025 sodium chloride 0.9 % flush 10 mL(Linked Group 1) 10 mL, Intravenous, As Needed, Line Care, Starting on Tue07/23/25 at 2350 Linked Groups Order Group 1: Insert Peripheral IV (CANCELED) STAT, Once, On Tue07/23/25 at 2351, For 1 occurrence And sodium chloride 0.9 % flush 10 mLJump to med 10 mL, Intravenous, As Needed, Line Care, Starting on Tue07/23/25 at 2350 documented in this encounter Care Teams Seo Executive Relationship Specialty Start Date End Date Stacy Lake MD [address] [place] [address] PCP - General Family Medicine 02/08/22 documented as of this encounter
--- OUTSIDE RECORDS SUMMARY | 2025-08-08 22:22 | XMS_ITS | Encounter Summary ---
[facility] Address [address] [place] [address] Care Team Providers Care Supervisor Operations Name Role Phone Stacy Lake MD Primary Care Provider + Reason for Visit * Reason Comments Seizures Nausea Encounter Details Date Type Department Care Team (Late st Contact Info) Description 08/08/2025 11:22 PM EDT - 08/09/2025 Emergency [facility] [address] [place] [address] Marvin Arias MD [address] [place] [address] Psychogenic nonepileptic seizure (Primary Dx) Discharge Disposition: Home or Self Care Social History Tobacco Use Types Packs/Day Years Used Date Smoking Tobacco: Never Smokeless Tobacco: Never Abuse Screen Answer Date Recorded Feels Unsafe at Home or Work/School no 08/08/2025 Feels Threatened by Someone no 07/24 Does Anyone Try to Keep You From Having Contact with Others or Doing Things Outside Your Home? no 08/08/2025 Physical Signs of Abuse Present no 08/08/2025 Comments No Sex and Gender Information Value Date Recorded Sex Assigned at Not on file Legal Sex Female 5:07 PM EDT Gender Identity Not on file Sexual Orientation Not on file Travel History Travel Start Travel End [place] 07/21/2025 08/20/2025 documented as of this encounter Last Filed Vital Signs Vital Sign Reading Time Taken Comments Blood Pressure 119/85 08/08/2025 11:30 PM EDT Pulse 96 08/08/2025 11:30 PM EDT Temperature 36.8 C (98.2 F) 08/08/2025 11:28 PM EDT Respiratory Rate 15 08/08/2025 11:32 PM EDT Oxygen Saturation 100% 08/08/2025 11:30 PM EDT Inhaled Oxygen Concentration - - Weight 113 kg (249 lb 1.9 oz) 08/08/2025 11:28 P M EDT Height 170.2 cm (5' 7 ) 08/08/2025 11:28 PM EDT Body Mass Index 39.02 08/08/2025 11:28 PM EDT documented in this encounter Functional Status * Calculated C-SSRS Risk Score (Lifetime/Recent) Answer Date of Assessment Author No Risk Indicated 08/08/2025 11:30 PM EDT Margarita Poole RN * [place] Suicide Severity Rating Scale (Screener/Recent Self-Report) Question Answer Date of Assessment Author 1. Wish to be (Past 1 Month) No 08/08/2025 11:30 PM EDT Margarita Moctezuma RN 2. Non-Specific Active Suici prudencio Thoughts (Past 1 Month) No 08/08/2025 11:30 PM EDT Abraham Moctezuma RN 6. Suicidal Behavior (Lifetime) No 11:30 PM EDT Margarita Moctezuma RN documented as of this encounter Discharge Instructions * Discharge Instructions* Marvin Arias MD - 08/08/2025 11:41 PM EDT Recommend closely following up with cardiology as scheduled through [place] for further tilt table testing etc. Drink plenty of fluids to prevent dehydration. * Attachments The following attachments cannot be sent through Care Everywhere. * Functional Neurologic Disorder (Trist[place]) documented in this encounter Medications at Time [...] as of this encounter ED Notes * Margarita Moctezuma RN - 08/09/2025 12:00 AM EDT [facility] called att for ride back to [facility]. * Marvin Arias MD - 08/08/2025 11:42 PM EDT Images from the original note were not included. [facility] Emergency Department Encounter Emergency Medicine Physician Note Pt Name: Verenice Redding Pt : 2005 Room Number: 01SF/01 Date of encounter: 08/08/2025 PCP: Stacy Lake MD ED Provider: Marvin Arias MD Historian: Patient HPI: Chief Complaint: Syncope Context: Verenice Redding is a 19 y.o. female who presents to the ED c/o syncope. Patient has knownhistory of psychogenic syncope and nonepileptic seizures. Reportedly has felt achy and nauseous. Had initially declined transfer to hospital by EMS but then had a nonepileptic seizure that lasted 3 minutes and was brought by EMS. Patient is awake alert and oriented x 4 on arrival with GCS 15. Denies any injuries or pain. Declines any blood work to be done tonight and is preferring to be discharged immediately. Patient was agreeable to taking some Zofran for her nausea. PAST MEDICAL HISTORY Past Medical History: Diagnosis Date Hypothyroid POTS (postural orthostatic tachycardia syndrome) PAST SURGICAL HISTORY Past Surgical History: Procedure Laterality Date TONSILLECTOMY Bilateral FAMILY HISTORY No family history on file. SOCIAL HISTORY Social History[1] ALLERGIES Red dye #40 (allura red) and Sulfa antibiotics REVIEW OF SYSTEMS Review of Systems All systems reviewed and negative except for those discussed in HPI. PHYSICAL EXAM I have reviewed the triage vital signs and nursing notes. ED Triage Vitals Temp Heart Rate Resp BP SpO2 08/08/25232708/08/25232908/08/25233108/08/25232908/08/252329 98.2 ??F (36.8 ??C) 96 15 119/85 100 % Temp src Heart Rate Source Patient Position BP Location FiO2 (%) 08/08/25232708/08/25232908/08/25232908/08/252329 -- Oral Monitor Lying Left arm Physical Exam General: Awake, alert, no acute distress HEENT: Atraumatic, normocephalic, EOMI, [...] Psych: Mood and affect appropriate. LAB RESULTS No results found for this or any previous visit (from the past 24 hours). RADIOLOGY No Radiology Exams Resulted Within Past 24 Hours PROCEDURES Procedures ECG 12 Lead Syncope Final Result MEDICATIONS GIVEN IN ER Medications ondansetron ODT (ZOFRAN-ODT) disintegrating tablet 4 mg (4 mg Oral Given 08/08/25 7103) MEDICAL DECISION MAKING, PROGRESS, and CONSULTS All [...] to the ED c/o syncope. Hemodynamically stable nontoxic in appearance upon arrival. Patient has had multiple ER workups with extensive labs and imaging over the past 2 months for similar symptoms. Tonight patient is declining any blood work or further workup. States she is already following up with [place] with cardiology and autonomic's there. Patient given Zofran for nausea prophylaxis. EKG shows normal sinus rhythm with rate of [address] elevations meeting STEMI criteria along with no QT prolongation or significant interval abnormalities. Advised on need for follow-up with cardiology as an outpatient. Patient states that she was just stressed and that is what caused tonight's events. Patient declined any further workup in emergency department. Patient voiced understanding of this plan and request to be discharged at this time. Orders placed during this visit: Orders Placed This Encounter Procedures ECG 12 Lead Syncope ED Course: Shared Decision Making: After my consideration of clinical presentation and any laboratory/radiology studies obtained, I discussed the findings with the patient/patient procurement representative who is in agreement with the treatment plan and the final disposition. Risks and benefits of discharge and/or observation/admission were discussed. OF 00:59 EDT VITALS: BP - 119/85 HR - 96 TEMP - 98.2 ??F (36.8 ??C) (Oral) O2 SATS - 100% DIAGNOSIS Final diagnoses: Psychogenic nonepileptic seizure DISPOSITION Discharge Please note that portions of this document were completed with voice recognition software. [1] Social History Socioeconomic History Marital status: Single Tobacco Use Smoking status: Never Smokeless tobacco: Never Vaping Use Vaping status: Never Used Substance and Sexual Activity Drug use: Never Sexual activity: Never Marvin Arias MD 08/09/25 0059 documented in this encounter Plan of Treatment Not on file documented as of this encounter Procedures Procedure Name Priority Date/Time Associated Diagnosis Comments ECG 12-LEAD STAT 08/08/2025 11:42 PM EDT documented in this encounter Results * ECG 12 Lead Syncope (08/08/2025 11:42 PM EDT) Marvin Arias MD ECG ORDERABLES Final Result documented in this encounter Visit Diagnoses Diagnosis Psychogenic nonepileptic seizure- Primary documented in this encounter Administered Medications Inactive Administered Medications - up to 3 most recent administrations Medication Order MAR Action Action Date Dose Rate Site ondansetron ODT (ZOFRAN-ODT) disintegrating tablet 4 mg 4 mg, Oral, Once, On Paz 08/08/25 at 2357, For 1 dose, If multiple N/V medications ordered, use in the following order: Ondansetron, Prochlorperazine, Promethazine. Use PO unless patient refuses or patient unable to swallow. Place on tongue and allow to dissolve. Given 08/08/2025 11:57 PM EDT 4 mg documented in this encounter Active and Recently Administered Medications Times are shown in EDT. Scheduled Medication Order 08/07/2025 08/08/2025 08/09/2025 ondansetron ODT (ZOFRAN-ODT) disintegrating tablet 4 mg (COMPLETED) 4 mg, Oral, Once, On Paz 08/08/25 at 2357, For 1 dose, If multiple N/V medications ordered, use in the following order: Ondansetron, Prochlorperazine, Promethazine. Use PO unless patient refuses or patient unable to swallow. Place on tongue and allow to dissolve. 3153 (Given - Provider: Margarita Moctezuma RN) documented in this encounter Care Teams Supervisor Operations Relationship Specialty Start Date End Date Stacy aLke MD [address] [place] [address] PCP - General Family Medicine 02/08/22 documented as of this encounter
--- OUTSIDE RECORDS SUMMARY | 2025-08-13 21:10 | XMS_ITS | Encounter Summary ---
[facility] Address [address] [place] [address] Care Team Providers Care Drill Rig Operator Name Role Phone Stacy Lake MD Primary Care Provider + Reason for Visit * Reason Comments Headache Encounter Details Date Type Department Care Team (Late st Contact Info) Description 08/13/2025 10:10 PM EDT - 08/13/2025 10:52 PM EDT Emergency [facility] [address] [place] [phone] Marvin Arias MD [address] [place] [address] Vaccination complication, initial encounter (Primary Dx) Discharge Disposition: Home or Self Care Social History Tobacco Use Types Packs/Day Years Used Date Smoking Tobacco: Never Smokeless Tobacco: Never Alcohol Use Standard Drinks/Week Comments Never 0 (1 standard drink = 0.6 oz pur e alcohol) Abuse Screen Answer Date Recorded Feels Unsafe at Home or Work/School no 08/13/2025 Feels Threatened by Someone no 07/25 Does Anyone Try to Keep You From Having Contact with Others or Doing Things Outside Your Home? no 08/13/2025 Physical Signs of Abuse Present no 08/13/2025 Comments No Sex and Gender Information Value Date Recorded Sex Assigned at Not on file Legal Sex Female 5:07 PM EDT Gender Identity Not on file Sexual Orientation Not on file Travel History Travel Start Travel End [place] 07/21/2025 08/20/2025 documented as of this encounter Last Filed Vital Signs Vital Sign Reading Time Taken Comments Blood Pressure 128/89 08/13/2025 10:30 PM EDT Pulse 82 08/13/2025 10:30 PM EDT Temperature 36.8 C (98.2 F) 08/13/2025 9:51 PM EDT Respiratory Rate 15 08/13/2025 10:30 PM EDT Oxygen Saturation 98% 08/13/2025 10:30 PM EDT Inhaled Oxygen Concentration - - Weight 112 kg (247 lb 9.6 oz) 08/13/2025 9:51 PM EDT Height 171.5 cm (5' 7.5 ) 08/13/2025 9:51 PM EDT Body Mass Index 38.21 08/13/2025 9:51 PM EDT documented in this encounter Functional Status * Calculated C-SSRS Risk Score (Lifetime/Recent) Answer Date of Assessment Author No Risk Indicated 08/13/2025 10:10 PM EDT Dina Arzate RN * [place] Suicide Severity Rating Scale (Screener/Recent Self-Report) Question Answer Date of Assessment Author 1. Wish to be (Past 1 Month) No 08/13/2025 10:10 PM EDT Brayan Pinto RN 2. Non-Specific Active Suici prudencio Thoughts (Past 1 Month) No 08/13/2025 10:10 PM EDT Noelle Pinto RN 6. Suicidal Behavior (Lifetime) No 10:10 PM EDT Dina Pinto RN documented as of this encounter Discharge Instructions * Discharge Instructions* Marvin Arias MD - 08/13/2025 10:29 PM EDT Recommend continuing Tylenol and Motrin as needed for body aches or headaches. Drink plenty of fluids. Follow-up with primary care provider. documented in this encounter Medications at Time [...] as of this encounter ED Notes * Lea Snyder - 08/13/2025 10:50 PM EDTSummary: [facility] Called [facility] for transport back to campus. * Marvin Arias MD - 08/13/2025 10:26 PM EDT Images from the original note were not included. [facility] Emergency Department Encounter Emergency Medicine Physician Note Pt Name: Verenice Redding Pt : 2005 Room Number: 02SF/02 Date of encounter: 08/13/2025 PCP: Stacy Lake MD ED Provider: Marvin Arias MD Historian: Patient and EMS HPI: Chief Complaint: Reaction to flu shot Context: Verenice Redding is a 19 y.o. female who presents to the ED c/o reaction to flu shot. Patient states she got a flu shot around 1:30 PM today and has felt bad ever since. Reports that she hascaused headache and bodyaches. Took Tylenol. EMS was called to campus 4 times today for the her symptoms and she refused transport each time and then finally tonight agreed to come to the ER for evaluation. Does report that she still is having frequent episodes of her passing out episodes but declines any blood work or workup for that tonight. PAST MEDICAL HISTORY Past Medical History: Diagnosis Date Hypothyroid POTS (postural orthostatic tachycardia syndrome) PAST SURGICAL HISTORY Past Surgical History: Procedure Laterality Date TONSILLECTOMY Bilateral FAMILY HISTORY No family history on file. SOCIAL HISTORY Social History Socioeconomic History Marital status: Single Tobacco Use Smoking status: Never Smokeless tobacco: Never Vaping Use Vaping status: Never Used Substance and Sexual Activity Alcohol use: Never Drug use: Never Sexual activity: Never ALLERGIES Red dye #40 (allura red) and Sulfa antibiotics REVIEW OF SYSTEMS Review of Systems All systems reviewed and negative except for those discussed in HPI. PHYSICAL EXAM I have reviewed the triage vital signs and nursing notes. ED Triage Vitals [08/13/25 2151] Temp Heart Rate Resp BP SpO2 98.2 ??F (36.8 ??C) 89 16 148/97 100 % Temp src Heart Rate Source Patient Position BP Location FiO2 (%) Oral Monitor Sitting Left arm -- Physical Exam General: Awake, alert, no acute [...] Resulted Within Past 24 Hours PROCEDURES Procedures No orders to display MEDICATIONS GIVEN IN ER Medications ketorolac (TORADOL) injection 30 mg (30 mg Intramuscular Given 08/13/252234) MEDICAL DECISION MAKING, PROGRESS, and CONSULTS All [...] female who presents to the ED c/o flu shot reaction. Hemodynamically stable and nontoxic in appearance upon arrival. 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 Declines blood work tonight. No tachycardia or hypotension on arrival and patient is awake alert and orientedx 4 GCS 15. Likely having reaction to recent flu vaccination. Patient agreeable with IM Toradol for headache/bodyaches. Advised on need to follow-up with primary care provider and [facility]. Patient agreeable with this plan was discharged. Orders placed during this visit: No orders of the defined types were placed in this encounter. ED Course: Consultants: None Shared Decision Making: After my consideration of clinical presentation and any laboratory/radiology studies obtained, I discussed the findings with the patient/patient environmental marketing representative who is in agreement with the treatment plan and the final disposition. Risks and benefits of discharge and/or observation/admission were discussed. OF 23:35 EDT VITALS: BP - 128/89 HR - 82 TEMP - 98.2 ??F (36.8 ??C) (Oral) O2 SATS - 98% [facility] @GT@ DIAGNOSIS Final diagnoses: Vaccination complication, initial encounter DISPOSITION Discharge Please note that portions of this document were completed with voice recognition software. Marvin Arias MD 08/13/25 2335 documented in this encounter Plan of Treatment Not on file documented as of this encounter Visit Diagnoses Diagnosis Vaccination complication, initial encounter- Primary documented in this encounter Administered Medications Inactive Administered Medications - up to 3 most recent administrations Medication Order MAR Action Action Date Dose Rate Site ketorolac (TORADOL) injection 30 mg 30 mg, Intramuscular, Once, On Tue08/13/25 at 2236, For 1 dose, Based on patient request [...] Pain Score of 7-10, CPOT 5-8 Given 08/13/2025 10:35 PM EDT 30 mg Right Deltoid documented in this encounter Active and Recently Administered Medications Times are shown in EDT. Scheduled Medication Order 08/11/2025 08/12/2025 08/13/2025 ketorolac (TORADOL) injection 30 mg (COMPLETED) 30 mg, Intramuscular, Once, On Tue08/13/25 at 2236, For 1 dose, Based on patient request [...] = Pain Score of 7-10, CPOT 5-8 2235 (Given - Provid er: Dina Pinto RN) documented in this encounter Care Teams Drill Rig Operator Relationship Specialty Start Date End Date Stacy Lake MD [address] [place] [address] PCP - General Family Medicine 02/08/22 documented as of this encounter
--- OUTSIDE RECORDS SUMMARY | 2025-08-17 18:28 | XMS_ITS | Encounter Summary ---
Author Organization [facility] Address [address] [place] [address] Care Team Providers Care Customer Servicer Name Role Phone Stacy Lake MD Primary Care Provider + Reason for Visit * Reason Comments Syncope Encounter Details Date Type Department Care Team (Late st Contact Info) Description 08/17/2025 7:28 PM EDT - 08/17/2025 8:18 PM EDT Emergency PSYCHIATRIC EMERGENCY DEPARTMENT [address] [place] [phone] Arturo Kline MD [address] [place] [address] Syncope, unspecified syncope type (Primary Dx); Witnessed seizure-like activity Discharge Disposition: Home or Self Care Social History Tobacco Use Types Packs/Day Years Used Date Smoking Tobacco: Never Smokeless Tobacco: Never Alcohol Use Standard Drinks/Week Comments Never 0 (1 standard drink = 0.6 oz pur e alcohol) Abuse Screen Answer Date Recorded Feels Unsafe at Home or Work/School no 08/17/2025 Feels Threatened by Someone no 07/25 Does Anyone Try to Keep You From Having Contact with Others or Doing Things Outside Your Home? no 08/17/2025 Physical Signs of Abuse Present no 08/17/2025 Comments No Sex and Gender Information Value Date Recorded Sex Assigned at Not on file Legal Sex Female 5:07 PM EDT Gender Identity Not on file Sexual Orientation Not on file Travel History Travel Start Travel End [place] 07/21/2025 08/20/2025 documented as of this encounter Last Filed Vital Signs Vital Sign Reading Time Taken Comments Blood Pressure 126/94 08/17/2025 7:38 PM EDT Pulse 71 08/17/2025 8:00 PM EDT Temperature 36.6 C (97.8 F) 08/17/2025 7:38 PM EDT Respiratory Rate 14 08/17/2025 7:38 PM EDT Oxygen Saturation 99% 08/17/2025 8:00 PM EDT Inhaled Oxygen Concentration - - Weight 83.9 kg (185 lb) 08/17/2025 7:38 PM EDT Height 170.2 cm (5' 7 ) 08/17/2025 7:38 PM EDT Body Mass Index 28.98 08/17/2025 7:38 PM EDT documented in this encounter Functional Status * Calculated C-SSRS Risk Score (Lifetime/Recent) Answer Date of Assessment Author No Risk Indicated 08/17/2025 7:39 PM EDT Sade Black RN * [place] Suicide Severity Rating Scale (Screener/Recent Self-Report) Question Answer Date of Assessment Author 1. Wish to be (Past 1 Month) No 7:39 PM EDT Saed Black RN 2. Non-Specific Active Suici prudencio Thoughts (Past 1 Month) No 08/17/2025 7:39 PM EDT Sade Black RN 6. Suicidal Behavior (Lifetime) No 7:39 PM EDT Sade Black RN documented as of this encounter Discharge Instructions * Discharge Instructions* Renny Lawton PA-C - 08/17/2025 8:07 PM EDT Please follow-up with your primary care doctor as well as with your neurology team and autonomic dysfunction cardiology team as soon as possible for further evaluation. Return to the ER for any acutechanges or worsening of your condition right away. * Attachments The following attachments cannot be sent through Care Everywhere. * Non-Epileptic Seizures in Adults: How to Manage (Arabic) documented in this encounter Medications at Time [...] as of this encounter ED Notes * Verónica Shirley PCT - 08/17/2025 8:14 PM EDT BG 87 at this time, RN made aware. * Edis Ward - 08/17/2025 8:13 PM EDTSummary: Transportation [facility] [employer] called to request transport back to patients dorm * Renny Lawton PA-C - 08/17/2025 7:33 PM EDT EMERGENCY DEPARTMENT ENCOUNTER Pt Name: Verenice Redding Pt : 2005 Room Number: Date of encounter: 08/17/2025 PCP: Stacy Lake MD ED Provider: Renny Lawton PA-C Historian: Patient, EMS agronomy teacher, nursing notes HPI: Chief Complaint: Seizure-like activity Context: Verenice Redding is a 19 y.o. female who presents to the ED c/o a syncopal episode today. 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 Patient states she was forced to call ambulance because her college makes her do it every time that happens but states that she is not concerned about her current symptoms she feels well and would like to be discharged. PAST MEDICAL HISTORY Past Medical History: Diagnosis [...] antibiotics REVIEW OF SYSTEMS Review of Systems Constitutional: Negative for chills and fever. HENT: Negative for congestion and sore throat. Respiratory: Negative for cough and shortness of breath. Cardiovascular: Negative for chest pain. Gastrointestinal: Negative for abdominal pain, nausea and vomiting. Genitourinary: Negative for dysuria. Musculoskeletal: Negative for back pain. Skin: Negative for wound. Neurological: Positive for syncope. Negative for dizziness and headaches. Psychiatric/Behavioral: Negative for confusion. All other systems reviewed and are negative. All systems reviewed and negative except for those discussed in HPI. PHYSICAL EXAM I have reviewed the triage vital signs and nursing notes. ED Triage Vitals Temp Pulse Resp BP SpO2 Vitals: 08/17/251999 BP: Pulse: 71 Resp: Temp: SpO2: 99% Physical Exam Vitals and nursing note reviewed. Constitutional: General: She is not in acute distress. Appearance: She is not ill-appearing, toxic-appearing or diaphoretic. HENT: Head: Normocephalic and atraumatic. Mouth/Throat: Mouth: Mucous membranes are moist. Pharynx: Oropharynx is clear. Eyes: Extraocular Movements: Extraocular movements intact. Cardiovascular: Rate and Rhythm: Normal rate. Heart sounds: Normal heart sounds. Pulmonary: Effort: Pulmonary effort is normal. No respiratory distress. Breath sounds: Normal breath sounds. Abdominal: Tenderness: There is no abdominal tenderness. Skin: General: Skin is warm and dry. Findings: No rash. Neurological: General: No focal deficit present. Mental Status: She is alert and oriented to person, place, and time. GCS: GCS eye subscore is 4. GCS verbal subscore is 5. GCS motor subscore is 6. Cranial Nerves: Cranial nerves 2-12 are intact. Sensory: Sensation is intact. Motor: Motor function is intact. Coordination: Coordination is intact. Gait: Gait is intact. LAB RESULTS Recent Results (from the past 24 hours) POC Glucose Once Collection Time: 08/17/25 8:05 PM Specimen: Blood Result Value Ref Range Glucose 87 70 - 130 mg/dL If labs were ordered, I independently reviewed the results and considered them in treating the patient. RADIOLOGY No Radiology Exams Resulted Within Past 24 Hours See radiologist's dictation for official interpretation. PROCEDURES Procedures ECG 12 Lead Other; Seizure Final Result MEDICATIONS GIVEN IN ER Medications - No data to display MEDICAL DECISION MAKING, PROGRESS, and CONSULTS All labs, if obtained, have been independently reviewed by me. All radiology studies, if obtained, have been reviewed by me and the radiologist dictating the report. All EKG's, if obtained, have beenindependently viewed and interpreted by me/my attending physician. Discussion below represents my analysis of pertinent findings related to patient's condition, differential diagnosis, treatment plan and final disposition. Patient presenting for psychogenic seizure and/or syncopal episode both of which she has an extensive history of and has been worked up with cardiology autonomic dysfunction providers and neurology. Today her glucose is normal and is seeing her EKG is unremarkable with no arrhythmia or acute ischemic changes. Her vital signs are all stable within normal limits. She is upright alert oriented no acu te distress. She is able to ambulate with no ataxia. Neurological exam grossly unremarkable and reassuring. Patient and I mutually agreed on outpatient follow- up with her neurology and cardiology providers given the extensive labs and imaging she has had here recently for findings today on exam arereassuring and her symptomology and history is more in keeping with a psychogenic seizure today. Strict ED return precautions were explained and patient verbalized understanding. She denies any traumatic injuries from today's syncopal episode. Differential diagnosis: Differential diagnosis included but was not limited to psychogenic seizure, syncope, POTS Additional sources: - Discussed/ obtained information from independent historians: None - External (non-ED) record review: Previous medical records reviewed - Chronic or social conditions impacting care: POTS, history of psychogenic seizure Orders placed during this visit: Orders Placed This Encounter Procedures POC Glucose STAT POC Glucose Once ECG 12 Lead Other; Seizure Additional orders considered but not ordered: None ED Course: Consultants: None ED Course as of 08/17/252111 Sat Aug 17, 20252013 EKG: I reviewed and independently interpreted the EKG as: Sinus rhythm rate 84 beats a minute, normal axis, normal intervals, no ST elevation, T wave inversion lead III [CS] ED Course User Index [CS] Arturo Kline MD Shared Decision Making: After my consideration of clinical presentation and any laboratory/radiology studies obtained, I discussed the findings with the patient/patient customer account representative who is in agreement with the treatment plan and the final disposition. Risks and benefits of discharge and/or observation/admission were discussed. OF 21:12 EDT VITALS: BP - 126/94 HR - 71 TEMP - 97.8 ??F (36.6 ??C) (Oral) O2 SATS - 99% @[facility]@ @[facility]@ DIAGNOSIS Final diagnoses: Syncope, unspecified syncope type Witnessed seizure-like activity DISPOSITION Discharge Please note that portions of this document were completed with voice recognition software. Renny Lawton PA-C 08/17/252112 Cosigned by Arturo Kline MD at 08/17/2025 9:30 PM EDT Associated attestation - Arturo Kline MD - 08/17/2025 9:30 PM EDT ED Course as of 08/17/252129Aug 17, 20252013 EKG: I reviewed and independently interpreted the EKG as: Sinus rhythm rate 84 beats a minute, normal axis, normal intervals, no ST elevation, T wave inversion lead III [CS] ED Course User Index [CS] Arturo Kline MD SUPERVISE: For this patient encounter, I reviewed the APC's documentation, treatment plan, and medical decision making. Arturo Kline MD 08/17/2025 21:30 EDT documented in this encounter Plan of Treatment Not on file documented as of this encounter Procedures Procedure Name Priority Date/Time Associated Diagnosis Comments POCT GLUCOSE FINGERSTICK STAT 08/17/2025 8:05 PM EDT ECG 12-LEAD STAT 08/17/2025 7:40 PM EDT documented in this encounter Results * POC Glucose Once (08/17/2025 8:05 PM EDT) [facility] Signature Glucose 87 70 - 130 mg/dL 08/17/2025 8:06 PM EDT PSYCHIATRIC LABORATORY Comment:Serial Number: [id number]: [id number] Blood 08/17/2025 8:05 PM EDT 08/17/2025 8:06 PM EDT Arturo Kline MD POINT OF CARE TEST OR DERABLES Final Result PSYCHIATRIC LABORATORY
[address] [place] [address], [place] [phone] * ECG 12 Lead Other; Seizure (08/17/2025 7:40 PM EDT) Renny Lawton PA-C ECG ORDERABLES Final Resul t documented in this encounter Visit Diagnoses Diagnosis Syncope, unspecified syncope type- Primary Witnessed seizure-like activity documented in this encounter Care Teams Customer Servicer Relationship Specialty Start Date End Date Stacy Lake MD [address] [place] [address] PCP - General Family Medicine 02/08/22 documented as of this encounter
--- OUTSIDE RECORDS SUMMARY | 2025-08-20 18:19 | XMS_ITS | Encounter Summary ---
Author Organization [facility] Address [address] [place] [address] Care Team Providers Care Regional Production Manager Name Role Phone Stacy Lake MD Primary Care Provider + Reason for Visit * Reason Comments Dizziness Abdominal Pain Encounter Details Date Type Department Care Team (Late st Contact Info) Description 08/20/2025 7:19 PM EDT - 08/20/2025 10:20 PM EDT Emergency [facility] EMERGENCY DEPART[facility] [address] [place] [phone] Timothy Velasco MD [address] [facility] [place] [address] Acute abdominal pain (Primary Dx); Dizziness Discharge Disposition: Home or Self Care Social History Tobacco Use Types Packs/Day Years Used Date Smoking Tobacco: Never Smokeless Tobacco: Never Alcohol Use Standard Drinks/Week Comments Never 0 (1 standard drink = 0.6 oz pur e alcohol) Abuse Screen Answer Date Recorded Feels Unsafe at Home or Work/School no 08/20/2025 Feels Threatened by Someone no 07/25 Does Anyone Try to Keep You From Having Contact with Others or Doing Things Outside Your Home? no 08/20/2025 Physical Signs of Abuse Present no 08/20/2025 Comments No Sex and Gender Information Value Date Recorded Sex Assigned at Not on file Legal Sex Female 5:07 PM EDT Gender Identity Not on file Sexual Orientation Not on file Travel History Travel Start Travel End [place] 07/21/2025 08/20/2025 documented as of this encounter Last Filed Vital Signs Vital Sign Reading Time Taken Comments Blood Pressure 123/79 08/20/2025 8:53 PM EDT Pulse 87 08/20/2025 6:49 PM EDT Temperature 36.9 C (98.5 F) 08/20/2025 6:49 PM EDT Respiratory Rate 16 08/20/2025 6:49 PM EDT Oxygen Saturation 96% 08/20/2025 10:00 PM EDT Inhaled Oxygen Concentration - - Weight 111 kg (245 lb) 08/20/2025 6:49 PM EDT Height 170.2 cm (5' 7 ) 08/20/2025 6:49 PM EDT Body Mass Index 38.37 08/20/2025 6:49 PM EDT documented in this encounter Functional Status * Calculated C-SSRS Risk Score (Lifetime/Recent) Answer Date of Assessment Author No Risk Indicated 08/20/2025 6:59 PM EDT Amee Ontiveros RN * [place] Suicide Severity Rating Scale (Screener/Recent Self-Report) Question Answer Date of Assessment Author 1. Wish to be (Past 1 Month) No 6:59 PM EDT Amee Ontiveros RN 2. Non-Specific Active Suici prudencio Thoughts (Past 1 Month) No 08/20/2025 6:59 PM EDT Amee Ontiveros RN 6. Suicidal Behavior (Lifetime) No 6:59 PM EDT Amee Ontiveros RN documented as of this encounter Discharge Instructions * Discharge Instructions* Timothy Velasco MD - 08/20/2025 10:06 PM EDT Discontinue hyoscyamine use. Drink plenty of fluids. Follow-up with primary care physician for further outpatient evaluation. * Attachments The following attachments cannot be sent through Care Everywhere. * Abdominal Pain Adult (Ecuadorean) * Dizziness (Ecuadorean) documented in this encounter Medications at Time [...] as of this encounter ED Notes * Timothy Velasco MD - 08/20/2025 7:25 PM EDT EMERGENCY DEPARTMENT ENCOUNTER Name: Verenice Redding Date of encounter: 08/20/2025 PCP: Stacy Lake MD : 2005 Room Number: S ELOISA Provider Statement: Patient or patient employee's representative verbalized consent for the use of AmbientListening during the visit with Timothy Velasco MD for chart documentation. 08/21/2025 19:25 EDT HPI: History of Present Illness 19-year-old female with a history of POTS who presents for evaluation of abdominal pain with associated nausea vomiting after taking a newly prescribed occasion. She reports that she has POTS and wasprescribed hyoscyamine. She took a dose of this and began to have epigastric abdominal pain with nausea and vomiting which prompted the current presentation to the ER. No chest pain cough or shortness of breath. No sick contacts. No urine symptoms include no dysuria or urinary frequency. MEDICATIONS CURRENT MEDS: Hydroxyzine As needed and History of Present Illness Review of Systems Constitutional: Positive for fatigue. Negative for chills and fever. HENT: Negative for congestion, ear pain, postnasal drip, sinus pressure and sore throat. Eyes: Negative for pain, redness and visual disturbance. Respiratory: Negative for cough, chest tightness and shortness of breath. Cardiovascular: Negative for chest pain, palpitations and leg swelling. Gastrointestinal: Positive for abdominal pain, nausea and vomiting. Negative for anal bleeding, blood in stool and diarrhea. Endocrine: Negative for polydipsia and polyuria. Genitourinary: Negative for difficulty urinating, dysuria, frequency and urgency. Musculoskeletal: Negative for arthralgias, back pain and neck pain. Skin: Negative for pallor and rash. Allergic/Immunologic: Negative for environmental allergies and immunocompromised state. Neurological: Negative for dizziness, weakness and headaches. Hematological: Negative for adenopathy. Psychiatric/Behavioral: Negative for confusion, self-injury and suicidal ideas. The patient is nervous/anxious. All other systems reviewed and are negative. PAST MEDICAL HISTORY Past Medical History: Diagnosis [...] Drug use: Never Sexual activity: Never ALLERGIES Allergies Allergen Reactions Red Dye #40 (Allura Red) Anaphylaxis Sulfa Antibiotics Anaphylaxis PHYSICAL EXAM I have reviewed the triage vital signs and nursing notes. ED Triage Vitals [08/20/25 1849] Temp Heart Rate Resp BP SpO2 98.5 ??F (36.9 ??C) 87 16 127/91 98 % Temp src Heart Rate Source Patient Position BP Location FiO2 (%) Oral Monitor Sitting Left arm -- Physical Exam Vitals and nursing note reviewed. Constitutional: General: She is not in acute distress. Appearance: Normal appearance. She is well-developed. She is not toxic-appearing or diaphoretic. HENT: Head: Normocephalic and atraumatic. Right Ear: External ear normal. Left Ear: External ear normal. Nose: Nose normal. Eyes: General: Lids are normal. Pupils: Pupils are equal, round, and reactive to light. Neck: Trachea: No tracheal deviation. Cardiovascular: Rate and Rhythm: Normal rate and regular rhythm. Pulses: No decreased pulses. Heart sounds: Normal heart sounds. No murmur heard. No friction rub. No gallop. Pulmonary: Effort: Pulmonary effort is normal. No respiratory distress. Breath sounds: Normal breath sounds. No decreased breath sounds, wheezing, rhonchi or rales. Abdominal: General: Bowel sounds are normal. Palpations: Abdomen is soft. Tenderness: There is generalized abdominal tenderness and tenderness in the suprapubic area. There is no guarding or rebound. Musculoskeletal: General: No deformity. Normal range of motion. Cervical back: Normal range of motion and neck supple. Lymphadenopathy: Cervical: No cervical adenopathy. Skin: General: Skin is warm and dry. Findings: No rash. Neurological: Mental Status: She is alert and oriented to person, place, and time. Cranial Nerves: No cranial nerve deficit. Sensory: No sensory deficit. Psychiatric: Mood and Affect: Mood is anxious. Affect is tearful. Speech: Speech normal. Behavior: Behavior normal. Thought Content: Thought content normal. Judgment: Judgment normal. Results LAB RESULTS Labs from Hospital Encounter 08/20/25 Comprehensive Metabolic Panel Specimen: Blood Result Value Ref Range Glucose 88 65 - 99 mg/dL BUN 10.0 6.0 - 20.0 mg/dL Creatinine 0.67 0.57 - 1.00 mg/dL Sodium 138 136 - 145 mmol/L Potassium 3.7 3.5 - 5.2 mmol/L Chloride 104 98 - 107 mmol/L CO2 18.9 (L) 22.0 - 29.0 mmol/L Calcium 9.1 8.6 - 10.5 mg/dL Total Protein 7.1 6.0 - 8.5 g/dL Albumin 4.4 3.5 - 5.2 g/dL ALT (SGPT) 17 1 - 33 U/L AST (SGOT) 17 1 - 32 U/L Alkaline Phosphatase 92 39 - 117 U/L Total Bilirubin 0.3 0.0 - 1.2 mg/dL Globulin 2.7 gm/dL A/G Ratio 1.6 g/dL BUN/Creatinine Ratio 14.9 7.0 - 25.0 Anion Gap 15.1 (H) 5.0 - 15.0 mmol/L eGFR 129.3 >60.0 mL/min/1.73 Lipase Specimen: Blood Result Value Ref Range Lipase 15 13 - 60 U/L CBC Auto Differential Specimen: Blood Result Value Ref Range WBC 10.17 3.40 - 10.80 10*3/mm3 RBC 4.23 3.77 - 5.28 10*6/mm3 Hemoglobin 12.6 12.0 - 15.9 g/dL Hematocrit 37.1 34.0 - 46.6 % MCV 87.7 79.0 - 97.0 fL MCH 29.8 26.6 - 33.0 pg MCHC 34.0 31.5 - 35.7 g/dL RDW 13.2 12.3 - 15.4 % RDW-SD 42.4 37.0 - 54.0 fl MPV 10.5 6.0 - 12.0 fL Platelets 368 140 - 450 10*3/mm3 Neutrophil % 49.2 42.7 - 76.0 % Lymphocyte % 41.6 19.6 - 45.3 % Monocyte % 7.2 5.0 - 12.0 % Eosinophil % 0.9 0.3 - 6.2 % Basophil % 0.9 0.0 - 1.5 % Immature Grans % 0.2 0.0 - 0.5 % Neutrophils, Absolute 5.01 1.70 - 7.00 10*3/mm3 Lymphocytes, Absolute 4.23 (H) 0.70 - 3.10 10*3/mm3 Monocytes, Absolute 0.73 0.10 - 0.90 10*3/mm3 Eosinophils, Absolute 0.09 0.00 - 0.40 10*3/mm3 Basophils, Absolute 0.09 0.00 - 0.20 10*3/mm3 Immature Grans, Absolute 0.02 0.00 - 0.05 10*3/mm3 nRBC 0.0 0.0 - 0.2 /100 WBC hCG, Quantitative, Specimen: Blood Result Value Ref Range HCG Quantitative <0.10 mIU/mL Urinalysis With Culture If Indicated - Urine, Clean Catch Specimen: Urine, Clean Catch Result Value Ref Range Color, UA Yellow Yellow, Straw Appearance, UA Clear Clear pH, UA 7.5 5.0 - 8.0 Specific [place], UA 1.011 1.005 - 1.030 Glucose, UA Negative Negative Ketones, UA Negative Negative Bilirubin, UA Negative Negative Blood, UA Negative Negative Protein, UA Negative Negative Leuk Esterase, UA Trace (A) Negative Nitrite, UA Negative Negative Urobilinogen, UA 0.2 E.U./dL 0.2 - 1.0 E.U./dL Urine Drug Screen - Urine, Clean Catch Specimen: Urine, Clean Catch Result Value Ref Range THC, Screen, Urine Negative Negative Phencyclidine (PCP), Urine Negative Negative Cocaine Screen, Urine Negative Negative Methamphetamine, Ur Negative Negative Opiate Screen Negative Negative Amphetamine Screen, Urine Negative Negative Benzodiazepine Screen, Urine Negative Negative Tricyclic Antidepressants Screen Negative Negative Methadone Screen, Urine Negative Negative Barbiturates Screen, Urine Negative Negative Oxycodone Screen, Urine Negative Negative Buprenorphine, Screen, Urine Negative Negative Fentanyl, Urine - Urine, Clean Catch Specimen: Urine, Clean Catch Result Value Ref Range Fentanyl, Urine Negative Negative Urinalysis, Microscopic Only - Urine, Clean Catch Specimen: Urine, Clean Catch Result Value Ref Range RBC, UA None Seen None Seen, 0-2 /HPF WBC, UA 3-5 (A) None Seen, 0-2 /HPF Bacteria, UA 1+ (A) None Seen /HPF Squamous Epithelial Cells, UA 3-6 (A) None Seen, 0-2 /HPF Hyaline Casts, UA None Seen None Seen /LPF Methodology Manual Light Microscopy Green Top (Gel) Result Value Ref Range Extra Tube Hold for add-ons. Lavender Top Result Value Ref Range Extra Tube hold for add-on Gold Top - SST Result Value Ref Range Extra Tube Hold for add-ons. Light Blue Top Result Value Ref Range Extra Tube Hold for add-ons. RADIOLOGY CT Abdomen Pelvis Without Contrast Result Date: 08/20/2025 FINAL REPORT TECHNIQUE: null CLINICAL HISTORY: upper abdominal pain COMPARISON: null FINDINGS: CT abdomen and pelvis without contrast Comparison: None provided Findings: The lung bases are clear. Theabdominal aorta is unremarkable. The liver is unremarkable. Cholecystectomy. The pancreas, spleen, adrenal glands and kidneys are. No nephrolithiasis or hydronephrosis. The contour of the urinary bladder is normal. Anteverted uterus. Small cysts within the bilateral adnexa. Mild intraluminal fluid within the mid and distal small bowel. No bowel obstruction, pneumoperitoneum, or pneumatosis. Normal appendix. The bones are intact. Small umbilical hernia which contains fat. Impression: IMPRESSION: 1. No acute process. Authenticated and 12 Lead Other; dizziness Final Result ORDERS PLACED DURING THIS VISIT: Orders Placed This Encounter Procedures CT Abdomen Pelvis Without Contrast [place] Draw Comprehensive Metabolic Panel Lipase CBC Auto Differential hCG, Quantitative, Urinalysis With Culture If Indicated - Urine, Clean Catch Urine Drug Screen - Urine, Clean Catch Fentanyl, Urine - Urine, Clean Catch Urinalysis, Microscopic Only - Urine, Clean Catch Undress & Gown ECG 12 Lead Other; dizziness CBC & Differential Green Top (Gel) Lavender Top Gold Top - SST Light Blue Top MEDICATIONS GIVEN IN ER Medications ondansetron (ZOFRAN) injection 4 mg (4 mg Intravenous Given 08/20/251926) PROCEDURES Procedures PROGRESS, DATA ANALYSIS, CONSULTS, AND MEDICAL DECISION MAKING All labs, radiology studies, and EKG's have been independently viewed and interpreted by me. Discussion below represents my analysis of pertinent findings related to patient's condition, differentialdiagnosis, treatment plan and final disposition. Medical Decision Making Differential includes conversion disorder, anxiety, adverse medication effect, dehydration, electrolyte abnormality, dysrhythmia, acute infectious process. Urine does not appear consistent with infection. Urine drug screen is negative. Labs show normal white count and H&H, normal kidney function with no significant electrolyte abnormalities. CT scan of abdomen pelvis without contrast interpreted by me is negative for intra-abdominal abnormalities. The patient's vitals have remained stable throughout the ER course. She will be discharged with the advised to follow-up with primary care physician as needed. Problems Addressed: Acute abdominal pain: chronic illness or injury with exacerbation, progression, or side effects of treatment Dizziness: chronic illness or injury with exacerbation, progression, or side effects of treatment Amount and/or Complexity of Data Reviewed External Data Reviewed: labs, radiology and ECG. Labs: ordered. Decision-making details documented in ED Course. Radiology: ordered and independent interpretation performed. Decision-making details documented in ED Course. ECG/medicine tests: ordered and independent interpretation performed. Decision- making details documented in ED Course. Details: EKG performed 08/20/2025 at 1854 interpreted by me shows sinus rhythm, heart rate 83, normal QRS, normal QTc, no acute ischemic changes. Risk Prescription drug management. Admission was considered but after careful review of the patient's presentation, physical examination, diagnostic results, and response to treatment the patient appears appropriate for discharge withoutpatient follow-up. OF 13:39 EDT VITALS: BP - 123/79 HR - 87 TEMP - 98.5 ??F (36.9 ??C) (Oral) O2 SATS - 96% DIAGNOSIS Final diagnoses: Acute abdominal pain Dizziness DISPOSITION ED Disposition ED Disposition Discharge Condition Stable Comment -- Follow-up Information Stacy Lake MD In 1 week. Specialty: Family Medicine Contact information: [facility] [address] Your medication list CONTINUE taking these medications Instructions Last Dose Given Next Dose Due Aimovig 140 MG/ML auto-injector Generic drug: Erenumab-aooe Inject 1 mL under the skin into the appropriate area as directed Every 30 (Thirty) Days. Cholecalciferol 50 MCG (2000 UT) tablet Take 2,000 Units by mouth Daily. colestipol 1 g tablet Commonly known as: COLESTID Take 1 tablet by mouth 2 (Two) Times a Day. famotidine 20 MG tablet Commonly known as: PEPCID Take 1 tablet by mouth Daily. fludrocortisone 0.1 MG tablet Take 1 tablet by mouth Daily. ibuprofen 800 MG tablet Commonly known as: ADVIL,MOTRIN Take 1 tablet by mouth Daily. ivabradine HCl 5 MG tablet tablet Commonly known as: CORLANOR Take 0.5 tablets by mouth. levothyroxine 88 MCG tablet Commonly known as: SYNTHROID, LEVOTHROID Take 88 mcg by mouth Daily. magnesium oxide 400 MG tablet Commonly known as: MAG-OX Take 400 mg by mouth Daily. metoprolol succinate XL 25 MG 24 hr tablet Commonly known as: TOPROL-XL Take 0.5 tablets by mouth Daily. Nurtec 75 MG dispersible tablet Generic drug: rimegepant sulfate ODT Take 1 tablet by mouth. ondansetron ODT 4 MG disintegrating tablet Commonly known as: ZOFRAN-ODT Place 1 tablet on the tongue Every 8 (Eight) Hours As Needed for Nausea or Vomiting. pantoprazole 40 MG EC tablet Commonly known as: PROTONIX 1 tablet. SUMAtriptan 50 MG tablet Commonly known as: IMITREX TAKE 1 TABLET BY MOUTH ONCE NEEDED FOR MIGRAINE, MAY REPEAT AFTER 2 HOURS topiramate 25 MG tablet Commonly known as: TOPAMAX TAKE 1 TABLET BY MOUTH TWICE DAILY. START WITH 1 TABLET AT NIGHT FOR 7 DAYS. STOP taking these medications hyoscyamine 0.125 MG SL tablet Commonly known as: LEVSIN Please note that portions of this note were completed with a voice recognition program. Note Disclaimer: At [facility], we believe that sharing information builds trust and better relationships. You are receiving this note because you recently visited [facility]. It is possible you will see health information before a provider has talked with you about it. This kind of information can be easy to misunderstand. To help you fully understand what it means for your health, we urge you to discuss this note with your provider. Timothy Velasco MD 08/21/25 1339 documented in this encounter Plan of Treatment Not on file documented as of this encounter Procedures Procedure Name Priority Date/Time Associated Diagnosis Comments URINALYSIS, MICROSCOPIC ONLY STAT 08/20/2025 9:26 PM EDT URINALYSIS W/ CULTURE IF INDICATED STAT 08/20/2025 9:26 PM EDT URINE DRUG SCREEN STAT 08/20/2025 9:2 6 PM EDT FENTANYL, URINE STAT 08/20/2025 9:[address] ABDOMEN PELVIS WO CONTRAST STAT 08/20/2025 8:03 PM EDT GOLD TOP - SST STAT 08/20/2025 7:07 PM EDT DK GREEN TOP STAT 08/20/2025 7:07 PM EDT CBC WITH AUTO DIFFERENTIAL STAT 08/20/2025 7:07 PM EDT LAVENDER TOP STAT 08/20/2025 7:07 PM EDT LIGHT BLUE TOP STAT 08/20/2025 7:07 PM EDT RAINBOW DRAW STAT 08/20/2025 7:07 PM EDT CBC AND DIFFERENTIAL STAT 08/20/2025 7:07 PM EDT HCG, QUANTITATIVE, STAT 08/20/2025 7:07 PM EDT LIPASE STAT 08/20/2025 7:07 PM EDT COMPREHENSIVE METABOLIC PANEL STAT 08/20/2025 7:07 PM EDT ECG 12-LEAD STAT 08/20/2025 7:02 PM EDT documented in this encounter Results * (ABNORMAL) Urinalysis, Microscopic Only - Urine, Clean Catch (08/20/2025 9:26 PM EDT) RBC, UA None Seen None Seen, 0-2 /HPF 08/20/2025 9:46 PM EDT [facility] WBC, UA 3-5(A) None Seen, 0-2 /HPF 08/20/2025 9:46 PM EDT [facility] Comment:Urine culture not in dicated. Bacteria, UA 1+(A) None Seen /HPF 08/20/2025 9:46 PM EDT [facility] Squamous Epithelial Cells, UA 3-6(A) None Seen, 0-2 /HPF 08/20/2025 9:46 PM EDT [facility] Hyaline Casts, UA None Seen None Seen /LPF 08/20/2025 9:46 PM EDT [facility] Methodology Manual Light Microscopy 08/20/2025 9:46 PM EDT [facility] Urine Urine specimen obtained by clean catch procedure / Unknown Collection / Unknown 08/20/2025 9:26 PM EDT 08/20/2025 9:29 PM EDT Timothy Velasco MD URINE ORDERABLES Final Re sult Performing Organization Address City/[facility]/ZIP Co de Phone Number [facility]
[address] [place] [address], * Fentanyl, Urine - Urine, Clean Catch (08/20/2025 9:26 PM EDT) Fentanyl, Urine Negative Negative 08/20/2025 9:44 PM EDT [facility] Urine Urine specimen obtained by clean catch procedure / Unknown Collection / Unknown 08/20/2025 9:26 PM EDT 08/20/2025 9:29 PM EDT Narrative [facility] - 08/20/2025 9:44 PM EDT Negative Threshold: Fentanyl 5 ng/mL The normal value for the drug tested is negative. This report includes final unconfirmed screening results to be used for medical treatment purposes only. Unconfirmed results must not be used for non-medical purposes such as employment or legal testing. Clinical consideration should be applied to any drug of abuse test, particularly when unconfirmed results are used. us Timothy Velasco MD URINE ORDERABLES Final Re sult Performing Organization Address City/[facility]/ZIP Co de Phone Number [facility]
[address] [place] [address], * Urine Drug Screen - Urine, Clean Catch (08/20/2025 9:26 PM EDT) THC, Screen, Urine Negative Negative 2024 9:48 PM EDT [facility] Phencyclidine (PCP), Urine Negative Negative 08/20/2025 9:48 PM EDT [facility] Cocaine Screen, Urine Negative Negative 08/20/2025 9:48 PM EDT [facility] Methamphetamine, Ur Negative Negative 08/20 9:48 PM EDT [facility] Opiate Screen Negative Negative 08/20/2025 9:48 PM EDT [facility] Amphetamine Screen, Urine Negative Negative 08/20/2025 9:48 PM EDT [facility] Benzodiazepine Screen, Urine Negative Negative 08/20/2025 9:48 PM EDT [facility] Tricyclic Antidepressants Screen Negative Negative 08/20/2025 9:48 PM EDT [facility] Methadone Screen, Urine Negative Negative 08/20/2025 9:48 PM EDT [facility] Barbiturates Screen, Urine Negative Negative 08/20/2025 9:48 PM EDT [facility] Oxycodone Screen, Urine Negative Negative 08/20/2025 9:48 PM EDT [facility] Buprenorphine, Screen, Urine Negative Negative 08/20/2025 9:48 PM EDT [facility] Urine Urine specimen obtained by clean catch procedure / Unknown Collection / Unknown 08/20/2025 9:26 PM EDT 08/20/2025 9:29 PM EDT [facility] - 08/20/2025 9:48 PM EDT Cutoff For Drugs Screened: Amphetamines 500 ng/ml Barbiturates 200 ng/ml Benzodiazepines 150 ng/ml Cocaine 150 ng/ml Methadone 200 ng/ml Opiates 100 ng/ml Phencyclidine 25 ng/ml THC 50 ng/ml Methamphetamine 500 ng/ml Tricyclic Antidepressants 300 ng/ml Oxycodone 100 ng/ml Buprenorphine 10 ng/ml The normal value for all drugs tested is negative. This report includes unconfirmed screening results, with the cutoff values listed, to be used for medical treatment purposes only. Unconfirmed results must not be used for non-medical purposes such as employment or legal testing. Clinical consideration should be applied to any drug of abuse test, particularly when unconfirmed results are used. Timothy Velasco MD URINE ORDERABLES Final Re sult [facility]
[address] [place] [address], * (ABNORMAL) Urinalysis With Culture If Indicated - Urine, Clean Catch (08/20/2025 9:26 PM EDT) Color, UA Yellow Yellow, Straw 08/20/2025 9:46 PM EDT [facility] Appearance, UA Clear Clear 08/20/2025 9:46 PM EDT [facility] pH, UA 7.5 5.0 - 8.0 08/20/2025 9:46 PM EDT [facility] Specific [place], UA 1.011 1.005 - 1.030 08/20/2025 9:46 PM EDT [facility] Glucose, UA Negative Negative 08/20/2025 9:46 PM EDT [facility] Ketones, UA Negative Negative 08/20/2025 9:46 PM EDT [facility] Bilirubin, UA Negative Negative 08/20/2025 9:46 PM EDT [facility] Blood, UA Negative Negative 08/20/2025 9:46 PM EDT [facility] Protein, UA Negative Negative 08/20/2025 9:46 PM EDT [facility] Leuk Esterase, UA Trace(A) Negative 08/20/2025 9:46 PM EDT [facility] Nitrite, UA Negative Negative 08/20/2025 9:46 PM EDT [facility] Urobilinogen, UA 0.2 E.U./dL 0.2 - 1.0 E.U./dL 08/20/2025 9:46 PM EDT [facility] Urine Urine specimen obtained by clean catch procedure / Unknown Collection / Unknown 08/20/2025 9:26 PM EDT 08/20/2025 9:29 PM EDT [facility] - 08/20/2025 9:46 PM EDT In absence of clinical symptoms, the presence of pyuria, bacteria, and/or nitrites on the urinalysis result does not correlate with infection. us Timothy Velasco MD URINE ORDERABLES Final Re sult [facility]
[address] [place] [address], [place] [phone] * CT Abdomen Pelvis Without Contrast (08/20/2025 8:03 PM EDT) Anatomical Region Laterality Modality Abdomen, Pelvis N/A Computed Tomogra phy 08/20/2025 9:28 PM EDT Impressions 08/20/2025 9:28 PM EDT IMPRESSION: 1. No acute process. Authenticated and Narrative 08/20/2025 9:28 PM EDT FINAL REPORT TECHNIQUE: null CLINICAL HISTORY: upper abdominal pain COMPARISON: null FINDINGS: CT abdomen and pelvis without contrast Comparison: None provided Findings: The lung bases are clear. The abdominal aorta is unremarkable. The liver is unremarkable. Cholecystectomy. The pancreas, spleen, adrenal glands and kidneys are. No nephrolithiasis or hydronephrosis. The contour of the urinary bladder is normal. Anteverted uterus. Small cysts within the bilateral adnexa. Mild intraluminal fluid within the mid and distal small bowel. No bowel obstruction, pneumoperitoneum, or pneumatosis. Normal appendix. The bones are intact. Small umbilical hernia which contains fat. Procedure Note Aftab Curran DO - 08/20/2025 FINAL REPORT TECHNIQUE: null CLINICAL HISTORY: upper abdominal pain COMPARISON: null FINDINGS: CT abdomen and pelvis without contrast Comparison: None provided Findings: The lung bases are clear. The abdominal aorta is unremarkable. The liver is unremarkable. Cholecystectomy. The pancreas, spleen, adrenalglands and kidneys are. No nephrolithiasis or hydronephrosis. The contour of the urinary bladder is normal. Anteverted uterus. Small cysts within the bilateral adnexa. Mild intraluminal fluid within the mid and distal small bowel. No bowel obstruction, pneumoperitoneum, or pneumatosis. Normal appendix. The bones are intact. Small umbilical hernia which contains fat. IMPRESSION: IMPRESSION: 1. No acute process. Authenticated and Timothy Velasco MD IMG CT ORDERABLES Final R esult * hCG, Quantitative, (08/20/2025 7:07 PM EDT) HCG Quantitative <0.10 mIU/mL 08/20/20 7:59 PM EDT [facility] Blood Venipuncture / Unknown 08/20/2025 7:07 PM EDT 08/20/2025 7:11 PM EDT [facility] - 08/20/2025 7:59 PM EDT HCG Ranges by Gestational Age Females - non- premenopausal </= 1mIU/mL HCG Females - postmenopausal </= 7mIU/mL HCG 3 Weeks 5.8 - 71.2 mIU/mL 4 Weeks 9.5 - 750 mIU/mL 5 Weeks 217 - 7,138 mIU/mL 6 Weeks 158 - 31,795 mIU/mL 7 Weeks 3,697 - 163,563 mIU/mL 8 Weeks 32,065 - 149,571 mIU/mL 9 Weeks 63,803 - 151,410 mIU/mL 10 Weeks 46,509 - 186,977 mIU/mL 12 Weeks 27,832 - 210,612 mIU/mL 14 Weeks 13,950 - 62,530 mIU/mL 15 Weeks 12,039 - 70,971 mIU/mL 16 Weeks 9,040 - 56,451 mIU/mL 17 Weeks 8,175 - 55,868 mIU/mL 18 Weeks 8,099 - 58,176 mIU/mL Timothy Velasco MD LAB BLOOD ORDERABLES Kathy l Result [facility]
[address] [place] [address], [place] [phone] * (ABNORMAL) CBC Auto Differential (08/20/2025 7:07 PM EDT) [facility] WBC 10.17 3.40 - 10.80 10*3/mm3 08/20/2025 7:14 PM EDT [facility] RBC 4.23 3.77 - 5.28 10*6/mm3 08/20/2025 7:14 PM EDT [facility] Hemoglobin 12.6 12.0 - 15.9 g/dL 08/20/2025 7:14 PM EDT [facility] Hematocrit 37.1 34.0 - 46.6 % 08/20/2025 7:14 PM EDT [facility] MCV 87.7 79.0 - 97.0 fL 08/20/2025 7:14 PM EDT [facility] MCH 29.8 26.6 - 33.0 pg 08/20/2025 7:14 PM EDT [facility] MCHC 34.0 31.5 - 35.7 g/dL 08/20/2025 7:14 PM EDT [facility] RDW 13.2 12.3 - 15.4 % 08/20/2025 7:14 PM EDT [facility] RDW-SD 42.4 37.0 - 54.0 fl 08/20/2025 7:14 PM EDT [facility] MPV 10.5 6.0 - 12.0 fL 08/20/2025 7:14 PM EDT [facility] Platelets 368 140 - 450 10*3/mm3 08/20/2025 7:14 PM EDT [facility] Neutrophil % 49.2 42.7 - 76.0 % 08/20/2025 7:14 PM EDT [facility] Lymphocyte % 41.6 19.6 - 45.3 % 08/20/2025 7:14 PM EDT [facility] Monocyte % 7.2 5.0 - 12.0 % 08/20/2025 7:14 PM EDT [facility] Eosinophil % 0.9 0.3 - 6.2 % 08/20/2025 7:14 PM EDT [facility] Basophil % 0.9 0.0 - 1.5 % 08/20/2025 7:14 PM EDT [facility] Immature Grans % 0.2 0.0 - 0.5 % 08/20/2025 7:14 PM EDT [facility] Neutrophils, Absolute 5.01 1.70 - 7.00 10*3/mm3 08/20/2025 7:14 PM EDT [facility] Lymphocytes, Absolute 4.23(H) 0.70 - 3.10 10*3/mm3 08/20/2025 7:14 PM EDT [facility] Monocytes, Absolute 0.73 0.10 - 0.90 10*3/mm3 08/20/2025 7:14 PM EDT [facility] Eosinophils, Absolute 0.09 0.00 - 0.40 10*3/mm3 08/20/2025 7:14 PM EDT [facility] Basophils, Absolute 0.09 0.00 - 0.20 10*3/mm3 08/20/2025 7:14 PM EDT [facility] Immature Grans, Absolute 0.02 0.00 - 0.05 10*3/mm3 08/20/2025 7:14 PM EDT [facility] nRBC 0.0 0.0 - 0.2 /100 WBC 08/20/2025 7:14 PM EDT [facility] Blood Venipuncture / Unknown 08/20/2025 7:07 PM EDT 08/20/2025 7:11 PM EDT us Timothy Velasco MD LAB BLOOD ORDERABLES Kathy l Result [facility]
[address] [place] [address], * Light Blue Top (08/20/2025 7:07 PM EDT) Extra Tube Hold for add-ons. 08/20/2025 7:15 PM EDT [facility] Comment:Auto resulted Blood Venipuncture / Unknown 08/20/2025 7:07 PM EDT 08/20/2025 7:11 PM EDT Timothy Velasco MD LAB BLOOD ORDER ONLY Kathy l Result [facility]
[address] [place] [address], * Gold Top - SST (08/20/2025 7:07 PM EDT) Extra Tube Hold for add-ons. 08/20/2025 7:15 PM EDT [facility] Comment:Auto resulted. Blood Venipuncture / Unknown 08/20/2025 7:07 PM EDT 08/20/2025 7:11 PM EDT Timothy Velasco MD LAB BLOOD ORDER ONLY Kathy l Result Performing Organization Address City/[facility]/ZIP Co de Phone Number [facility]
[address] [place] [address], * Lavender Top (08/20/2025 7:07 PM EDT) Extra Tube hold for add-on 08/20/2025 7:15 PM EDT [facility] Comment:Auto resulted Blood Venipuncture / Unknown 08/20/2025 7:07 PM EDT 08/20/2025 7:11 PM EDT Timothy Velasco MD LAB BLOOD ORDER ONLY Kathy l Result [facility]
[address] [place] [address], [place] [phone] * Green Top (Gel) (08/20/2025 7:07 PM EDT) Extra Tube Hold for add-ons. 08/20/2025 7:15 PM EDT [facility] Comment:Auto resulted. Blood Venipuncture / Unknown 08/20/2025 7:07 PM EDT 08/20/2025 7:11 PM EDT Timothy Velasco MD LAB BLOOD ORDER ONLY Kathy l Result Performing Organization Address City/[facility]/ZIP Co de Phone Number [facility]
[address] [place] [address], * Lipase (08/20/2025 7:07 PM EDT) Lipase 15 13 - 60 U/L 08/20/2025 7:32 PM EDT [facility] Blood Venipuncture / Unknown 08/20/2025 7:07 PM EDT 08/20/2025 7:11 PM EDT Timothy Velasco MD LAB BLOOD ORDERABLES Kathy l Result Performing Organization Address City/[facility]/ZIP Co de Phone Number [facility]
[address] [place] [address], * (ABNORMAL) Comprehensive Metabolic Panel (08/20/2025 7:07 PM EDT) Glucose 88 65 - 99 mg/dL 08/20/2025 7:32 PM EDT [facility] BUN 10.0 6.0 - 20.0 mg/dL 08/20/2025 7:32 PM EDT [facility] Creatinine 0.67 0.57 - 1.00 mg/dL 08/20/2025 7:32 PM EDT [facility] Sodium 138 136 - 145 mmol/L 08/20/2025 7:32 PM EDT [facility] Potassium 3.7 3.5 - 5.2 mmol/L 08/20/2025 7:32 PM EDT [facility] Chloride 104 98 - 107 mmol/L 08/20/2025 7:32 PM EDT [facility] CO2 18.9(L) 22.0 - 29.0 mmol/L 08/20/2025 7:32 PM EDT [facility] Calcium 9.1 8.6 - 10.5 mg/dL 08/20/2025 7:32 PM EDT [facility] Total Protein 7.1 6.0 - 8.5 g/dL 08/20/2025 7:32 PM EDT [facility] Albumin 4.4 3.5 - 5.2 g/dL 08/20/2025 7:32 PM EDT [facility] ALT (SGPT) 17 1 - 33 U/L 08/20/2025 7:32 PM EDT [facility] AST (SGOT) 17 1 - 32 U/L 08/20/2025 7:32 PM EDT [facility] Alkaline Phosphatase 92 39 - 117 U/L 08/20/2025 7:32 PM EDT [facility] Total Bilirubin 0.3 0.0 - 1.2 mg/dL 08/20/2025 7:32 PM EDT [facility] Globulin 2.7 gm/dL 08/20/2025 7:32 PM EDT [facility] A/G Ratio 1.6 g/dL 08/20/2025 7:32 PM T [facility] BUN/Creatinine Ratio 14.9 7.0 - 25.0 08/20/2025 7:32 PM T [facility] Anion Gap 15.1(H) 5.0 - 15.0 mmol/L 08/20/2025 7:32 PM T [facility] eGFR 129.3 >60.0 mL/min/1.7 3 08/20/2025 7:32 PM T [facility] Blood Venipuncture / Unknown 08/20/2025 7:07 PM EDT 08/20/2025 7:11 PM EDT [facility] - 08/20/2025 7:32 PM EDT GFR Categories in Chronic Kidney [...] not include race as a factor us Timothy Velasco MD LAB BLOOD ORDERABLES Kathy l Result [facility]
[address] [place] [address], [place] [phone] * ECG 12 Lead Other; dizziness (08/20/2025 7:02 PM EDT) us Timothy Velasco MD ECG ORDERABLES Final Res ult documented in this encounter Visit Diagnoses Diagnosis Acute abdominal pain- Primary Abdominal pain, unspecified site Dizziness Dizziness and giddiness documented in this encounter Administered Medications Inactive Administered Medications - up to 3 most recent administrations Medication Order MAR Action Action Date Dose Rate Site ondansetron (ZOFRAN) injection 4 mg 4 mg, Intravenous, Once, On e 08/20/25 at 1941, For 1 dose, If multiple N/V medications ordered, use in the following order: Ondansetron, Prochlorperazine, Promethazine. Use PO unless patient refuses or patient unable to swallow. Given 08/20/2025 7:27 PM EDT 4 mg sodium chloride 0.9 % flush 10 mL 10 mL, Intravenous, As Needed, Line Care, Starting on Tue08/20/25 at 1901 documented in this encounter Active and Recently Administered Medications Times are shown in EDT. Scheduled Medication Order 08/18/2025 08/19/2025 08/20/2025 ondansetron (ZOFRAN) injection 4 mg (COMPLETED) 4 mg, Intravenous, Once, On 08/20/25 at 1941, For 1 dose, If multiple N/V medications ordered, use in the following order: Ondansetron, Prochlorperazine, Promethazine. Use PO unless patient refuses or patient unable to swallow. 1926 (Given - Provid er: Lazaro Rome RN) PRN Medication Order 08/18/2025 08/19/2025 08/20/2025 sodium chloride 0.9 % flush 10 mL 10 mL, Intravenous, As Needed, Line Care, Starting on Tue08/20/25 at 1901 documented in this encounter Care Teams Regional Production Manager Relationship Specialty Start Date End Date Stacy Lake MD [address] [place] [address] PCP - General Family Medicine 02/08/22 documented as of this encounter
--- OUTSIDE RECORDS SUMMARY | 2025-09-16 10:52 | XMS_ITS | Encounter Summary ---
Author Organization [facility] Address [address] [place] [address] Care Team Providers Care Bottle Filler Name Role Phone Stacy Lake MD Primary Care Provider + Encounter Details Date Type Department Care Team (Latest Contact Info) Description 08/17/2025 Travel Social History Tobacco Use Types Packs/Day Years [...] file Travel History Travel Start Travel End [place] 07/21/2025 08/20/2025 documented as of this encounter Functional Status * Calculated C-SSRS Risk Score (Lifetime/Recent) Answer Date of Assessment Author No Risk Indicated 08/17/2025 7:39 PM EDT Sade Black RN * [place] Suicide Severity Rating Scale (Screener/Recent Self-Report) Question Answer Date of Assessment Author 1. Wish to be (Past 1 Month) No 025 7:39 PM EDT Sade Black, RN 2. Non-Specific Active Suici prudencio Thoughts (Past 1 Month) No 08/17/2025 7:39 PM EDT Sade Black RN 6. Suicidal Behavior (Lifetime) No 7:39 PM YVROSET Sade Black RN documented as of this encounter Plan of Treatment Not on file documented as of this encounter Visit Diagnoses Not on filedocumented in this encounter Care Teams Bottle Filler Relationship Specialty Start Date End Date Stacy Lake MD [address] [place] [address] PCP - General Family Medicine 02/08/22 documented as of this encounter
--- OUTSIDE RECORDS SUMMARY | 2025-09-16 10:52 | XMS_ITS | Encounter Summary ---
Author Organization [facility] Address [address] [place] [address] Care Team Providers Care Track Laying Equipment Operator Name Role Phone Stacy Lake MD Primary Care Provider + Encounter Details Date Type Department Care Team (Latest Contact Info) Description 08/20/2025 Travel Social History Tobacco Use Types Packs/Day [...] file Travel History Travel Start Travel End [place] 07/21/2025 08/20/2025 documented as of this encounter Functional Status * Calculated C-SSRS Risk Score (Lifetime/Recent) Answer Date of Assessment Author No Risk Indicated 08/20/2025 6:59 PM EDT Amee Ontiveros RN * [place] Suicide Severity Rating Scale (Screener/Recent Self-Report) Question Answer Date of Assessment Author 1. Wish to be (Past 1 Month) No 025 6:59 PM EDT Amee Ontiveros RN 2. Non-Specific Active Suici prudencio Thoughts (Past 1 Month) No 08/20/2025 6:59 PM EDT Amee Ontiveros RN 6. Suicidal Behavior (Lifetime) No 6:59 PM EDT Amee Ontiveros RN documented as of this encounter Plan of Treatment Not on file documented as of this encounter Visit Diagnoses Not on filedocumented in this encounter Care Teams Track Laying Equipment Operator Relationship Specialty Start Date End Date Stacy Lake MD [address] [place] [address] PCP - General Family Medicine 02/08/22 documented as of this encounter
--- OUTSIDE RECORDS SUMMARY | 2025-09-16 10:52 | XMS_ITS | Referral Summary ---
Author Organization [employer] ([place], [place], [place], [place], [place]) Address [address] [place] [address] Care Team Providers Care Communications And Signals Supervisor Name Role Phone Unavailable Primary Care Provider Unavailabl e Allergies Active Allergy Reactions Criticality Noted Date Comments Red Dye 04/13/2024 Sulfa (Sulfonamide Antibiotics) 03/25 Medications pantoprazole (PROTONIX) 40 MG tablet Take 1 tablet (40 mg total) by mouth every morning. 02/13/2024 Active levothyroxine (SYNTHROID, LEVOTHROID) 88 MCG tablet Take 1 tablet (88 mcg total) by mouth daily. 02/11/2024 Active ibuprofen (ADVIL,MOTRIN) 800 MG tablet Take 1 tablet (800 mg total) by mouth daily. 04/12/2024 Active Social History Tobacco Use Types Packs/Day Years Used Date Smoking Tobacco: Never Smokeless Tobacco: Never Tobacco Cessation:Counseling Given: Not Answered Alcohol Use Standard Drinks/Week Comments Not Currently 0 (1 standard drink = 0.6 oz pur e alcohol) Food Insecurity Answer Date Recorded Food run out past 12 months Not on file 06/2024 Food did not last past 12 months Not on file 03/01/2024 Employment Answer Date Recorded Help finding and keeping a job Not on file 0 03/01/2024 Family and Community Support Answer Geoff e Recorded Help with Day to Day Activities Not on file 03/01/2024 Feeling Lonely or Isolated Not on file 03/01 Educational Attainment Answer Date John rded Speak language other than [place] at home Not on file 03/01/2024 Want help with school or training Not on file 03/01/2024 Substance Use Answer Date Recorded Used prescription meds for non-medical reasons N ot on file 03/01/2024 Used illegal drugs past 12 months Not on file 03/01/2024 Comments Unknown Sex and Gender Information Value Date Recorded Sex Assigned at Female 04/20/2022 8:58 PM CDT Legal Sex Female 8:58 PM CDT Gender Identity Female 04/20/2022 8:58 PM CDT Sexual Orientation Not on file Last Filed Vital Signs Vital Sign Reading Time Taken Comments Blood Pressure 110/67 04/13/2024 2:59 PM EDT Pulse 57 04/13/2024 2:59 PM EDT Temperature 36.7 C (98 F) 04/13/2024 1:31 PM EDT Respiratory Rate 18 04/13/2024 1:31 PM EDT Oxygen Saturation 96% 04/13/2024 1:31 PM EDT Inhaled Oxygen Concentration - - Weight 118.8 kg (262 lb) 04/13/2024 1:31 PM EDT Height 172.7 cm (5' 8 ) 04/13/2024 1:31 PM EDT Body Mass Index 39.84 04/13/2024 1:31 PM EDT Body Mass Index Percentile 98.95% 04/13/2024 1:3 1 PM EDT Growth Chart: [facility] (Girls, 2- 20 Years) Plan of Treatment Not on file Insurance BLUE CROSS/BLUE SHIELD PASSPORT ELLE HONG
--- OUTSIDE RECORDS SUMMARY | 2025-09-16 10:52 | XMS_ITS | Clinical Summary ---
Author Organization [employer] ([place], [place], [place], [place], [place]) Address [address] [place] [address] Care Team Providers Care Clinical Informatics Strategist Name Role Phone Unavailable Primary Care Provider [...] Date John rded Speak language other than Icelandic at home Not on file 03/01/2024 Want [...] 04/13/2024 1:3 1 PM EDT Growth Chart: [facility] (Girls, 2- 20 Years) Plan of Treatment Health Maintenance Due Date Last Done Comments Depression Screening (12+) 2017 HIV Screening 2020 Meningococcal B Vaccine (1 o f 2 - Standard) 2021 Hepatitis C Screening 2023 Tobacco Cessation Counseling and Screening (12+) 04/13/2025 04/13/2024 COVID-19 VACCINE (3 - 2024-2 6 season) 2025 04/02/2021, 03/12/2021 Influenza Vaccine (#1) 2025 DTAP/TDAP/TD VACCINES (7 - T d or Tdap) 12/30/2026 12/30/2016, 10/09/2009, 05/02/2007, Additional history exists Pneumococcal Vaccine: 0-49 Years Completed 05/30/2007, 05/30/2007, 04/11/2006, Additional history exists IPV Vaccine Discontinued 10/09/2009, 07, 04/11/2006, Additional history exists Meningococcal A Vaccine Discontinued 07/12/2023, 01/09 Insurance BLUE CROSS/BLUE SHIELD PASSPORT [facility]
--- OUTSIDE RECORDS SUMMARY | 2025-09-16 10:53 | XMS_ITS | Encounter Summary ---
Author Organization [facility] Address [address] [place] [address] Care Team Providers Care Factory Supervisor Name Role Phone Stacy Lake MD Primary Care Provider + Encounter Details Date Type Department Care Team (Latest Contact Info) Description 08/08/2025 Travel Social History Tobacco Use Types Packs/Day [...] file Travel History Travel Start Travel End [place] 07/21/2025 08/20/2025 documented as of this encounter Functional Status * Calculated C-SSRS Risk Score (Lifetime/Recent) Answer Date of Assessment Author No Risk Indicated 08/08/2025 11:30 PM EDT Margarita Poole RN * [place] Suicide Severity Rating Scale (Screener/Recent Self-Report) Question Answer Date of Assessment Author 1. Wish to be (Past 1 Month) No 08/08/2025 11:30 PM EDT Margarita Moctezuma RN 2. Non-Specific Active Suici prudencio Thoughts (Past 1 Month) No 08/08/2025 11:30 PM EDT Chambers, Cl aire E, RN 6. Suicidal Behavior (Lifetime) No 5 11:30 PM EDT Margarita Moctezuma RN documented as of this encounter Plan of Treatment Not on file documented as of this encounter Visit Diagnoses Not on filedocumented in this encounter Care Teams Factory Supervisor Relationship Specialty Start Date End Date Stacy Lake MD [address] [place] [address] PCP - General Family Medicine 02/08/22 documented as of this encounter
--- OUTSIDE RECORDS SUMMARY | 2025-09-16 10:53 | XMS_ITS | Encounter Summary ---
Author Organization [facility] Address [address] [place] [address] Care Team Providers Care Research Staff Member Name Role Phone Stacy Lake MD Primary Care Provider + Encounter Details Date Type Department Care Team (Latest Contact Info) Description 07/23/2025 Travel Social History Tobacco Use Types Packs/Day [...] file Travel History Travel Start Travel End [place] 07/21/2025 08/20/2025 documented as of this encounter Functional Status * Calculated C-SSRS Risk Score (Lifetime/Recent) Answer Date of Assessment Author No Risk Indicated 07/23/2025 11:51 PM EDT Graciela Bedoya RN * [place] Suicide Severity Rating Scale (Screener/Recent Self-Report) Question Answer Date of Assessment Author 1. Wish to be (Past 1 Month) No 07/23/2025 11:51 PM EDT Kelli Hawkins RN 2. Non-Specific Active Suici prudencio Thoughts (Past 1 Month) No 07/23/2025 11:51 PM EDT Ashbrook, Ta bitha, RN 6. Suicidal Behavior (Lifetime) No 5 11:51 PM EDT Graciela Hawkins RN documented as of this encounter Plan of Treatment Not on file documented as of this encounter Visit Diagnoses Not on filedocumented in this encounter Care Teams Research Staff Member Relationship Specialty Start Date End Date Stacy Lake MD [address] [place] [address] PCP - General Family Medicine 02/08/22 documented as of this encounter
--- OUTSIDE RECORDS SUMMARY | 2025-09-16 10:53 | XMS_ITS | Encounter Summary ---
Author Organization [facility] Address [address] [place] [address] Care Team Providers Care Nutrition Aides Teacher Name Role Phone Amee Nunez MD Primary Care Provider [phone] Stacy Lake MD Primary Care Provider [phone] Encounter Details Date Type Department Care Team (Late st Contact Info) Description 03/08/2021 Abstract [facility] [address] [place] [address] Lala Gar, PA Social History Tobacco Use Types Packs/Day Years Used Date Smoking Tobacco: Never Comments Unknown Sex and Gender Information Value Date Recorded Sex Assigned at Female 04/16/2025 10:31 AM EDT Legal Sex Female 7:01 PM EDT Gender Identity Female 04/16/2025 10:31 AM EDT Sexual Orientation Not on file documented as of this encounter Last Filed Vital Signs Vital Sign Reading Time Taken Comments Blood Pressure - - Pulse - - Temperature 36.2 C (97.2 F) 11/27/2020 8:55 AM EST Respiratory Rate - - Oxygen Saturation - - Inhaled Oxygen Concentration - - Weight 124 kg (273 lb 5.9 oz) 02/05/2021 8:35 AM EDT Height 170.2 cm (5' 7 ) 02/05/2021 8:35 AM EDT Body Mass Index 42.82 02/05/2021 8:35 AM EDT Body Mass Index Percentile 99.89% 02/05/2021 8:3 5 AM EDT Growth Chart: [facility] (Girls, 2- 20 Years) documented in this encounter Plan of Treatment Upcoming Encounters Date Type Department Care Team (Late st Contact Info) Description 11/20/2025 10:40 AM EST Office Visit [facility] Pediatric Neurology [address] [place] [address] Vonnie Taveras PA [address] [place] [address] 06/18/2026 3:50 PM EDT Office Visit [facility] [address], [address] [place] [address] Stacy Lake MD [address] [place] [address] documented as of this encounter Visit Diagnoses Not on filedocumented in this encounter Additional Health Concerns Infection Onset Date Last Indicated Resolved Time COVID-19 Rule-Out 06/23/2021 06/23/2021 06/24/2021 6:17 AM EDT COVID-19 Rule-Out 10/10/2021 10/10/2021 10/10/2021 4:01 PM EST COVID-19 Rule-Out 11/10/2021 11/10/2021 11/10/2021 6:53 PM EST COVID 19 (Confirmed) 11/10/2021 11/10/2021 022 5:23 AM EST COVID-19 Rule-Out 02/09/2022 02/09/2022 02/09/2022 9:47 PM EDT COVID-19 Rule-Out 08/09/2022 08/09/2022 08/09/2022 7:22 PM EDT COVID-19 Rule-Out 08/11/2023 08/11/2023 08/12/2023 1:08 AM EDT COVID-19 Rule-Out 09/30/2023 09/30/2023 09/30/2023 9:22 PM EST documented as of this encounter Care Teams Nutrition Aides Teacher Relationship Specialty Start Date End Date Amee Nunez MD PCP - General 03/06/21 04/13/21 Stacy Lake MD [address] [address] PCP - General Family Medicine 04/14/21 documented as of this encounter
--- OUTSIDE RECORDS SUMMARY | 2025-09-16 10:53 | XMS_ITS | Clinical Summary ---
Author Organization [facility] Address [address] [place] [address] Care Team Providers Care Bass Singer Name Role Phone Stayc Lake MD Primary Care Provider + Allergies Active Allergy Reactions Criticality Noted Date Comments Red Dye #40 (Allura Red) Anaphylaxis High 01/05/2022 Sulfa Antibiotics Anaphylaxis High 05/14/2021 Medications Cholecalciferol 50 MCG (1999) tablet Take 2,000 Units by mouth Daily. Active levothyroxine (SYNTHROID, LEVOTHROID) 88 MCG tablet Take 88 mcg by mouth Daily. Active topiramate (TOPAMAX) 25 MG tablet TAKE 1 TABLET BY MOUTH TWICE DAILY. START WITH 1 TABLET AT NIGHT FOR 7 DAYS. Active SUMAtriptan (IMITREX) 50 MG tablet TAKE 1 TABLET BY MOUTH ONCE NEEDED FOR MIGRAINE, MAY REPEAT AFTER 2 HOURS Active magnesium oxide (MAG-OX) 400 MG tablet Take 400 mg by mouth Daily. Active metoprolol succinate XL (TOPROL-XL) 25 MG 24 hr tablet Take 0.5 tablets by mouth Daily. Active ibuprofen (ADVIL,MOTRIN) 800 MG tablet Take 1 tablet by mouth Daily. Active pantoprazole (PROTONIX) 40 MG EC tablet 1 tablet. Active Aimovig 140 MG/ML auto-injector Inject 1 mL under the skin into the appropriate area as directed Every 30 (Thirty) Days. Active famotidine (PEPCID) 20 MG tablet Take 1 tablet by mouth Daily. Active ivabradine HCl (CORLANOR) 5 MG tablet tablet Take 0.5 tablets by mouth. Active Nurtec 75 MG dispersible tablet Take 1 tablet by mouth. Active fludrocortisone 0.1 MG tablet Take 1 tablet by mouth Daily. Active colestipol (COLESTID) 1 g tablet Take 1 tablet by mouth 2 (Two) Times a Day. 2025 Active ondansetron ODT (ZOFRAN-ODT) [address] 1 tablet on the tongue Every 8 (Eight) Hours As Needed for Nausea or Vomiting. 20 tablet Active hyoscyamine (LEVSIN) 0.125 MG SL tablet DISSOLVE 1 TABLET IN MOUTH THREE TIMES DAILY NEEDED 2024 Discontinued Encounters Date Type Department Care Team Description 08/20/2025 7:19 PM EDT - 08/20/2025 10:20 PM EDT Emergency [facility] [address] [place] [phone] Timothy Velasco MD Acute abdominal pain (Primary Dx); Dizziness Discharge Disposition: Home or Self Care 08/20/2025 Travel 08/17/2025 7:28 PM EDT - 08/17/2025 8:18 PM EDT Emergency [facility] [address] [place] [phone] Arturo Kline MD Syncope, unspecified syncope type (Primary Dx); Witnessed seizure-like activity Discharge Disposition: Home or Self Care 08/17/2025 Travel 08/13/2025 10:10 PM EDT - 08/13/2025 10:52 PM EDT Emergency [facility] [address] [place] [phone] Marvin Arias MD Vaccination complication, initial encounter (Primary Dx) Discharge Disposition: Home or Self Care 08/13/2025 Travel 08/08/2025 11:22 PM EDT - 08/09/2025 Emergency [facility] [address] [place] [phone] Marvin Arias MD Psychogenic nonepileptic seizure (Primary Dx) Discharge Disposition: Home or Self Care 08/08/2025 Travel 07/23/2025 11:44 PM EDT - 07/24/2025 12:54 AM EDT Emergency [facility] [address] [place] [phone] Marvin Arias MD Syncope and collapse (Primary Dx); Recurrent conversion disorder Discharge Disposition: Home or Self Care 07/23/2025 Travel 07/21/2025 6:46 PM EDT - 07/21/2025 8:58 PM EDT Emergency [facility] [address] [place] [phone] Johnny Carl MD Syncope, unspecified syncope type (Primary Dx) Discharge Disposition: Home or Self Care 07/20/2025 10:49 PM EDT - 07/21/2025 12:18 AM EDT Emergency [facility] [address] [place] [phone] Marvin Arias MD Syncope and collapse (Primary Dx); POTS (postural orthostatic tachycardia syndrome) Discharge Disposition: Home or Self Care 07/20/2025 Travel 07/17/2025 9:41 PM EDT - 07/18/2025 1:39 AM EDT [facility] EMERGENCY DEPARTMENT [address] [place] [phone] Charles Rocha MD POTS (postural orthostatic tachycardia syndrome) (Primary Dx); Vasovagal syncope Discharge Disposition: Home or Self Care 07/17/2025 Travel 07/08/2025 10:32 PM EDT - 07/09/2025 12:20 AM EDT Emergency [facility] [address] [place] [phone] Marvin Arias MD Syncope and collapse (Primary Dx); POTS (postural orthostatic tachycardia syndrome) Discharge Disposition: Home or Self Care 07/08/2025 Travel 07/02/2025 10:26 PM EDT - 07/03/2025 1:07 AM EDT Emergency [facility] [address] [place] [phone] Jennifer Thao MD Postural orthostatic tachycardia syndrome (POTS) (Primary Dx) Discharge Disposition: Home or Self Care 07/02/2025 Travel from Last 3 Months Social History Tobacco Use Types Packs/Day Years Used Date Smoking Tobacco: Never Smokeless Tobacco: Never Tobacco Cessation:Counseling Given: Not Answered Alcohol Use Standard Drinks/Week Comments Never 0 [...] file Travel History Travel Start Travel End [place] 07/21/2025 08/20/2025 Last Filed Vital Signs Vital Sign Reading [...] Mass Index 38.37 08/20/2025 6:49 PM EDT Plan of Treatment Health Maintenance Due Date Last Done Comments ANNUAL PHYSICAL 2005 MENINGOCOCCAL B VACCINE (1 o f 2 - Standard) 2021 INFLUENZA VACCINE 05/24/2025 07/12/2023, , 09/07/2021, Additional history exists TDAP/TD VACCINES (2 - Td or Tdap) 12/30/2026 017 Pneumococcal Vaccine 0-49 Completed 2006, 04/11/2006, 02/07/2006, Additional history exists HPV VACCINES Completed 07/11/2017, 12/30/2016 MENINGOCOCCAL VACCINE Completed 07/12/2023 , 01/09/2017, 12/30/2016 HEPATITIS C SCREENING Completed 02/01/2024, 024 Procedures Procedure Name Priority Date/Time Associated Diagnosis Comments URINALYSIS, MICROSCOPIC ONLY STAT 08/20/2025 9:26 PM EDT FENTANYL, URINE STAT 08/20/2025 9:26 PM EDT URINE DRUG SCREEN STAT 08/20/2025 9:2 6 PM EDT URINALYSIS W/ CULTURE IF INDICATED STAT 08/20/2025 9:[address] ABDOMEN PELVIS WO CONTRAST STAT 08/20/2025 8:03 PM EDT LIGHT BLUE TOP STAT 08/20/2025 7:07 PM EDT GOLD TOP - SST STAT 08/20/2025 7:07 PM EDT LAVENDER TOP STAT 08/20/2025 7:07 PM EDT DK GREEN TOP STAT 08/20/2025 7:07 PM EDT CBC AND DIFFERENTIAL STAT 08/20/2025 7:07 PM EDT HCG, QUANTITATIVE, STAT 08/20/2025 7:07 PM EDT CBC WITH AUTO DIFFERENTIAL STAT 08/20/2025 7:07 PM EDT LIPASE STAT 08/20/2025 7:07 PM EDT COMPREHENSIVE METABOLIC PANEL STAT 08/20/2025 7:07 PM EDT RAINBOW DRAW STAT 08/20/2025 7:07 PM EDT ECG 12-LEAD STAT 08/20/2025 7:02 PM EDT POCT GLUCOSE FINGERSTICK STAT 08/17/2025 8:05 PM EDT ECG 12-LEAD STAT 08/17/2025 7:40 PM EDT ECG 12-LEAD STAT 08/08/2025 11:42 PM EDT CBC AND DIFFERENTIAL STAT 07/24/2025 12:07 AM EDT D-DIMER, QUANTITATIVE STAT 07/24/2025 12:07 AM EDT TROPONIN STAT 07/24/2025 12:07 AM EDT CBC WITH AUTO DIFFERENTIAL STAT 07/24/2025 12:07 AM EDT BASIC METABOLIC PANEL STAT 07/24/2025 12:07 AM EDT ECG 12-LEAD STAT 07/23/2025 11:57 PM EDT ECG 12-LEAD STAT 07/21/2025 7:14 PM EDT ETHANOL STAT 07/21/2025 7:07 PM EDT MAGNESIUM STAT 07/21/2025 7:07 PM EDT COMPREHENSIVE METABOLIC PANEL STAT 07/21/2025 7:07 PM EDT CBC WITH AUTO DIFFERENTIAL STAT 07/21/2025 7:07 PM EDT ECG 12-LEAD STAT 07/20/2025 11:18 PM EDT CBC AND DIFFERENTIAL STAT 07/20/2025 11:03 PM EDT MAGNESIUM STAT 07/20/2025 11:03 PM EDT CBC WITH AUTO DIFFERENTIAL STAT 07/20/2025 11:03 PM EDT COMPREHENSIVE METABOLIC PANEL STAT 07/20/2025 11:03 PM EDT URINALYSIS W/ CULTURE IF INDICATED STAT 07/18/2025 12:56 AM EDT , URINE STAT 07/18/2025 12:5 6 AM EDT XR CHEST 1 VW STAT 07/17/2025 10:14 PM EDT ECG 12-LEAD STAT 07/17/2025 9:58 PM EDT CBC AND DIFFERENTIAL STAT 07/17/2025 9:51 PM EDT CBC WITH AUTO DIFFERENTIAL STAT 07/17/2025 9:51 PM EDT CK STAT 07/17/2025 9:51 PM EDT MAGNESIUM STAT 07/17/2025 9:51 PM EDT PROCALCITONIN STAT 07/17/2025 9:51 PM EDT C-REACTIVE PROTEIN STAT 07/17/2025 9: 51 PM EDT D-DIMER, QUANTITATIVE STAT 07/17/2025 9:51 PM EDT TROPONIN STAT 07/17/2025 9:51 PM EDT COMPREHENSIVE METABOLIC PANEL STAT 07/17/2025 9:51 PM EDT COVID-19 AND FLU A/B, [employer] REPA[employer]ER SWAB IN TRANSPORT MEDIA 1 HR TAT STAT 07/17/2025 9:51 PM EDT LIGHT BLUE TOP STAT 07/08/2025 10:29 PM EDT GOLD TOP - SST STAT 07/08/2025 10:29 PM EDT LAVENDER TOP STAT 07/08/2025 10:29 PM EDT DK GREEN TOP STAT 07/08/2025 10:29 PM EDT CBC AND DIFFERENTIAL STAT 07/08/2025 10:29 PM EDT HCG, SERUM, QUALITATIVE STAT 07/08/2025 10:29 PM EDT CBC WITH AUTO DIFFERENTIAL STAT 07/08/2025 10:29 PM EDT COMPREHENSIVE METABOLIC PANEL STAT 07/08/2025 10:29 PM EDT RAINBOW DRAW STAT 07/08/2025 10:29 PM EDT ECG 12-LEAD STAT 07/08/2025 10:17 PM EDT ECG 12-LEAD STAT 07/02/2025 10:50 PM EDT POCT GLUCOSE FINGERSTICK STAT 07/02/2025 10:44 PM EDT LACTIC ACID, PLASMA STAT 07/02/2025 1 0:41 PM EDT COMPREHENSIVE METABOLIC PANEL STAT 07/02/2025 10:41 PM EDT CBC WITH AUTO DIFFERENTIAL STAT 07/02/2025 10:41 PM EDT from Last 3 Months Results * (ABNORMAL) Urinalysis, Microscopic Only - Urine, Clean Catch (08/20/2025 9:26 PM EDT) RBC, UA None Seen None Seen, 0-2 /HPF 08/20/2025 9:46 PM EDT [facility] WBC, UA 3-5(A) None Seen, 0-2 /HPF 08/20/2025 9:46 PM EDT [facility] Comment:Urine culture not in dicated. Bacteria, UA 1+(A) None Seen /HPF 08/20/2025 9:46 PM EDT [facility] Squamous Epithelial Cells, UA 3-6(A) None Seen, 0-2 /HPF 08/20/2025 9:46 PM EDT [facility] Hyaline Casts, UA None Seen None Seen /LPF 08/20/2025 9:46 PM EDT [facility] Methodology Manual Light Microscopy 08/20/2025 9:46 PM EDT [facility] Urine Urine specimen obtained by clean catch procedure / Unknown Collection / Unknown 08/20/2025 9:26 PM EDT 08/20/2025 9:29 PM EDT Timothy Velasco MD URINE ORDERABLES Final Re sult [facility]
[address] [place] [address], * (ABNORMAL) Urinalysis With Culture If Indicated - Urine, Clean Catch (08/20/2025 9:26 PM EDT) Only the most recent of2 resultswithin the time period is included. Color, UA Yellow Yellow, Straw 08/20/2025 9:46 PM EDT [facility] Appearance, UA Clear Clear 08/20/2025 9:46 PM EDT [facility] pH, UA 7.5 5.0 - 8.0 08/20/2025 9:46 PM EDT [facility] Specific [place], UA 1.011 1.005 - 1.030 08/20/2025 9:46 PM EDT [facility] Glucose, UA Negative Negative 08/20/2025 9:46 PM EDT [facility] Ketones, UA Negative Negative 08/20/2025 9:46 PM EDT [facility] Bilirubin, UA Negative Negative 08/20/2025 9:46 PM EDT [facility] Blood, UA Negative Negative 08/20/2025 9:46 PM EDT [facility] Protein, UA Negative Negative 08/20/2025 9:46 PM EDT [facility] Leuk Esterase, UA Trace(A) Negative 08/20/2025 9:46 PM EDT [facility] Nitrite, UA Negative Negative 08/20/2025 9:46 PM EDT [facility] Urobilinogen, UA 0.2 E.U./dL 0.2 - 1.0 E.U./dL 08/20/2025 9:46 PM EDT [facility] Urine Urine specimen obtained by clean catch procedure / Unknown Collection / Unknown 08/20/2025 9:26 PM EDT 08/20/2025 9:29 PM EDT [facility] - 08/20/2025 9:46 PM EDT In absence of clinical symptoms, the presence of pyuria, bacteria, and/or nitrites on the urinalysis result does not correlate with infection. us Timothy Velasco MD URINE ORDERABLES Final Re sult [facility]
[address] [place] [address], * Urine Drug Screen - Urine, Clean Catch (08/20/2025 9:26 PM EDT) THC, Screen, Urine Negative Negative 2024 9:48 PM EDT [facility] Phencyclidine (PCP), Urine Negative Negative 08/20/2025 9:48 PM EDT [facility] Cocaine Screen, Urine Negative Negative 08/20/2025 9:48 PM EDT [facility] Methamphetamine, Ur Negative Negative 08/20 9:48 PM EDT [facility] Opiate Screen Negative Negative 08/20/2025 9:48 PM EDT [facility] Amphetamine Screen, Urine Negative Negative 08/20/2025 9:48 PM EDT [facility] Benzodiazepine Screen, Urine Negative Negative 08/20/2025 9:48 PM EDT [facility] Tricyclic Antidepressants Screen Negative Negative 08/20/2025 9:48 PM EDT [facility] Methadone Screen, Urine Negative Negative 08/20/2025 9:48 PM EDT [facility] Barbiturates Screen, Urine Negative Negative 08/20/2025 9:48 PM EDT [facility] Oxycodone Screen, Urine Negative Negative 08/20/2025 9:48 PM EDT [facility] Buprenorphine, Screen, Urine Negative Negative 08/20/2025 9:48 PM EDT [facility] Urine Urine specimen obtained by clean catch procedure / Unknown Collection / Unknown 08/20/2025 9:26 PM EDT 08/20/2025 9:29 PM EDT [facility] - 08/20/2025 9:48 PM EDT [...] Velasco MD URINE ORDERABLES Final Re sult [facility]
[address] [place] [address], * Fentanyl, Urine - Urine, Clean Catch (08/20/2025 9:26 PM EDT) Fentanyl, Urine Negative Negative 08/20/2025 9:44 PM EDT [facility] Urine Urine specimen obtained by clean catch procedure / Unknown Collection / Unknown 08/20/2025 9:26 PM EDT 08/20/2025 9:29 PM [facility] 08/20/2025 9:44 PM EDT Negative [...] Velasco MD URINE ORDERABLES Final Re sult [facility]
[address] [place] [address], [place] [phone] * CT Abdomen Pelvis Without Contrast (08/20/2025 [...] IMG CT ORDERABLES Final R esult * Gold Top - SST (08/20/2025 7:07 PM EDT) Only the most recent of2 resultswithin the time period is included. Extra Tube Hold for add-ons. 08/20/2025 7:15 PM EDT [facility] Comment:Auto resulted. Blood Venipuncture / Unknown 08/20/2025 7:07 PM EDT 08/20/2025 7:11 PM EDT Timothy Velasco MD LAB BLOOD ORDER ONLY Kathy l Result Performing Organization Address [facility] Co de Phone Number [facility]
[address] [place] [address], [place] [phone] * Green Top (Gel) (08/20/2025 7:07 PM EDT) Only the most recent of2 resultswithin the time period is included. Extra Tube Hold for add-ons. 08/20/2025 7:15 PM EDT [facility] Comment:Auto resulted. Blood Venipuncture / Unknown 08/20/2025 7:07 PM EDT 08/20/2025 7:11 PM EDT Timothy Velasco MD LAB BLOOD ORDER ONLY Kathy l Result Performing Organization Address City/[facility]/ZIP Co de Phone Number [facility]
[address] [place] [address], * (ABNORMAL) CBC Auto Differential (08/20/2025 7:07 PM EDT) Only the most recent of7 resultswithin the time period is included. WBC 10.17 3.40 - 10.80 10*3/mm3 08/20/2025 7:14 PM EDT [facility] RBC 4.23 3.77 - 5.28 10*6/mm3 08/20/2025 7:14 PM EDT [facility] Hemoglobin 12.6 12.0 - 15.9 g/dL 08/20/2025 7:14 PM EDT [facility] Hematocrit 37.1 34.0 - 46.6 % 08/20/2025 7:14 PM EDT [facility] MCV 87.7 79.0 - 97.0 fL 08/20/2025 7:14 PM EDT [facility] MCH 29.8 26.6 - 33.0 pg 08/20/2025 7:14 PM EDT [facility] MCHC 34.0 31.5 - 35.7 g/dL 08/20/2025 7:14 PM EDT [facility] RDW 13.2 12.3 - 15.4 % 08/20/2025 7:14 PM EDT [facility] RDW-SD 42.4 37.0 - 54.0 fl 08/20/2025 7:14 PM EDT [facility] MPV 10.5 6.0 - 12.0 fL 08/20/2025 7:14 PM EDT [facility] Platelets 368 140 - 450 10*3/mm3 08/20/2025 7:14 PM EDT [facility] Neutrophil % 49.2 42.7 - 76.0 % 08/20/2025 7:14 PM EDT [facility] Lymphocyte % 41.6 19.6 - 45.3 % 08/20/2025 7:14 PM EDT [facility] Monocyte % 7.2 5.0 - 12.0 % 08/20/2025 7:14 PM EDT [facility] Eosinophil % 0.9 0.3 - 6.2 % 08/20/2025 7:14 PM EDT [facility] Basophil % 0.9 0.0 - 1.5 % 08/20/2025 7:14 PM EDT [facility] Immature Grans % 0.2 0.0 - 0.5 % 08/20/2025 7:14 PM EDT [facility] Neutrophils, Absolute 5.01 1.70 - 7.00 10*3/mm3 08/20/2025 7:14 PM EDT [facility] Lymphocytes, Absolute 4.23(H) 0.70 - 3.10 10*3/mm3 08/20/2025 7:14 PM EDT [facility] Monocytes, Absolute 0.73 0.10 - 0.90 10*3/mm3 08/20/2025 7:14 PM EDT [facility] Eosinophils, Absolute 0.09 0.00 - 0.40 10*3/mm3 08/20/2025 7:14 PM EDT [facility] Basophils, Absolute 0.09 0.00 - 0.20 10*3/mm3 08/20/2025 7:14 PM EDT [facility] Immature Grans, Absolute 0.02 0.00 - 0.05 10*3/mm3 08/20/2025 7:14 PM EDT [facility] nRBC 0.0 0.0 - 0.2 /100 WBC 08/20/2025 7:14 PM EDT [facility] Blood Venipuncture / Unknown 08/20/2025 7:07 PM EDT 08/20/2025 7:11 PM EDT Timothy Velasco MD LAB BLOOD ORDERABLES Kathy jhonny Result [facility]
[address] [place] [address], * Lavender Top (08/20/2025 7:07 PM EDT) Only the most recent of2 resultswithin the time period is included. Extra Tube hold for add-on 08/20/2025 7:15 PM EDT [facility] Comment:Auto resulted Blood Venipuncture / Unknown 08/20/2025 7:07 PM EDT 08/20/2025 7:11 PM EDT Timothy Velasco MD LAB BLOOD ORDER ONLY Kathy l Result [facility]
[address] [place] [address], [place] [phone] * Light Blue Top (08/20/2025 7:07 PM EDT) Only the most recent of2 resultswithin the time period is included. Extra Tube Hold for add-ons. 08/20/2025 7:15 PM EDT [facility] Comment:Auto resulted Blood Venipuncture / Unknown 08/20/2025 7:07 PM EDT 08/20/2025 7:11 PM EDT Timothy Velasco MD LAB BLOOD ORDER ONLY Kathy l Result Performing Organization Address City/[facility]/ZIP Co de Phone Number [facility]
[address] [place] [address], [place] [phone] * hCG, Quantitative, (08/20/2025 7:07 PM EDT) HCG Quantitative <0.10 mIU/mL 08/20/20 7:59 PM EDT [facility] Blood Venipuncture / Unknown 08/20/2025 7:07 PM EDT 08/20/2025 7:11 PM EDT Narrative [facility] - 08/20/2025 7:59 PM EDT HCG [...] MD LAB BLOOD ORDERABLES Kathy l Result [facility]
[address] [place] [address], [place] [phone] * Lipase (08/20/2025 7:07 PM EDT) [facility] Lipase 15 13 - 60 U/L 08/20/2025 7:32 PM EDT [facility] Blood Venipuncture / Unknown 08/20/2025 7:07 PM EDT 08/20/2025 7:11 PM EDT Timothy Velasco MD LAB BLOOD ORDERABLES Kathy l Result [facility]
[address] [place] [address], [place] [phone] * (ABNORMAL) Comprehensive Metabolic Panel (08/20/2025 7:07 PM EDT) Only the most recent of6 resultswithin the time period is included. [facility] Glucose 88 65 - 99 mg/dL 08/20/2025 7:32 PM EDT [facility] BUN 10.0 6.0 - 20.0 mg/dL 08/20/2025 7:32 PM EDT [facility] Creatinine 0.67 0.57 - 1.00 mg/dL 08/20/2025 7:32 PM EDT [facility] Sodium 138 136 - 145 mmol/L 08/20/2025 7:32 PM EDT [facility] Potassium 3.7 3.5 - 5.2 mmol/L 08/20/2025 7:32 PM EDT [facility] Chloride 104 98 - 107 mmol/L 08/20/2025 7:32 PM EDT [facility] CO2 18.9(L) 22.0 - 29.0 mmol/L 08/20/2025 7:32 PM EDT [facility] Calcium 9.1 8.6 - 10.5 mg/dL 08/20/2025 7:32 PM EDT [facility] Total Protein 7.1 6.0 - 8.5 g/dL 08/20/2025 7:32 PM T [facility] Albumin 4.4 3.5 - 5.2 g/dL 08/20/2025 7:[facility] ALT (SGPT) 17 1 - 33 U/L 08/20/2025 7:32 PM [facility] AST (SGOT) 17 1 - 32 U/L 08/20/2025 7:32 PM EDT [facility] Alkaline Phosphatase 92 39 - 117 U/L 08/20/2025 7:32 PM T [facility] Total Bilirubin 0.3 0.0 - 1.2 mg/dL 08/20/2025 7:32 PM EDT [facility] Globulin 2.7 gm/dL 08/20/2025 7:32 PM EDT [facility] A/G Ratio 1.6 g/dL 08/20/2025 7:32 PM EDT [facility] BUN/Creatinine Ratio 14.9 7.0 - 25.0 08/20/2025 7:32 PM EDT [facility] Anion Gap 15.1(H) 5.0 - 15.0 mmol/L 08/20/2025 7:32 PM EDT [facility] eGFR 129.3 >60.0 mL/min/1.7 3 08/20/2025 7:32 PM EDT [facility] Blood Venipuncture / Unknown 08/20/2025 7:07 PM EDT 08/20/2025 7:11 PM EDT Narrative [facility] - 08/20/2025 7:32 PM EDT GFR [...] does not include race as a factor Timothy Velasco MD LAB BLOOD ORDERABLES Kathy l Result [facility]
[address] [place] [address], * ECG 12 Lead Other; dizziness (08/20/2025 7:02 PM EDT) Only the most recent of9 resultswithin the time period is included. us Timothy Velasco MD ECG ORDERABLES Final Res ult * POC Glucose Once (08/17/2025 8:05 PM EDT) Only the most recent of2 resultswithin the time period is included. Glucose 87 70 - 130 mg/dL 08/17/2025 8:06 PM EDT [facility] Comment:Serial Number: [id number] Blood 08/17/2025 8:05 PM EDT 08/17/2025 8:06 PM EDT Arturo Kline MD POINT OF CARE TEST OR DERABLES Final Result Performing Organization Address [facility] Co de Phone Number [facility]
[address] [place] [address], * High Sensitivity Troponin T (07/24/2025 12:07 AM EDT) Only the most recent of2 resultswithin the time period is included. HS Troponin T <6 <14 ng/L 07/24/2025 12:33 AM EDT [facility] Blood Venipuncture / Unknown 07/24/2025 12:07 AM EDT 07/24/2025 12:11 AM EDT Narrative [facility] - 07/24/2025 12:33 AM EDT High [...] ORDERABLES Final Res ult Performing Organization Address City/[facility] Co de Phone Number [facility]
[address] [place] [address], * D-dimer, Quantitative (07/24/2025 12:07 AM EDT) Only the most recent of2 resultswithin the time period is included. Pathologist [facility] D-Dimer, Quantitative <0.27 0.00 - 0.50 MCGFEU/mL 07/24/2025 12:41 AM EDT [facility] Blood Venipuncture / Unknown 07/24/2025 12:07 AM EDT 07/24/2025 12:11 AM EDT [facility] - 07/24/2025 12:41 AM EDT According to the assay box closing machine operator's published package insert, a normal (<0.50 MCGFEU/mL) D-dimer result in conjunction with a non-high clinical probability assessment, excludes deep vein thrombosis (DVT) and pulmonary embolism (PE) with high sensitivity. D-dimer values increase with age and this can make VTE exclusion of an older population difficult. To address this, the [employer], based on best available [...] and an 80 year old 0.80 MCGFEU/mL. [facility] BLOOD ORDERABLES Final Res ult [facility]
[address] [id number], * (ABNORMAL) Basic Metabolic Panel (07/24/2025 12:07 AM EDT) Glucose 85 65 - 99 mg/dL 07/24/2025 12:34 AM EDT [facility] BUN 7.0 6.0 - 20.0 mg/dL 07/24/2025 12:34 AM EDT [facility] Creatinine 0.59 0.57 - 1.00 mg/dL 07/24/2025 12:34 AM EDT [facility] Sodium 139 136 - 145 mmol/L 07/24/2025 12:34 AM EDT [facility] Potassium 3.6 3.5 - 5.2 mmol/L 07/24/2025 12:34 AM EDT [facility] Chloride 105 98 - 107 mmol/L 07/24/2025 12:34 AM EDT [facility] CO2 18.2(L) 22.0 - 29.0 mmol/L 07/24/2025 12:34 AM EDT [facility] [facility] Calcium 9.0 8.6 - 10.5 mg/dL 07/24/2025 12:34 AM EDT [facility] BUN/Creatinine Ratio 11.9 7.0 - 25.0 07/24/2025 12:34 AM EDT [facility] Anion Gap 15.8(H) 5.0 - 15.0 mmol/L 07/24/2025 12:34 AM EDT [facility] eGFR 133.3 >60.0 mL/min/1.7 3 07/24/2025 12:34 AM T [facility] Blood Venipuncture / Unknown 07/24/2025 12:07 AM EDT 07/24/2025 12:11 AM EDT [facility] - 07/24/2025 12:34 AM EDT [...] MD LAB BLOOD ORDERABLES Final Res ult [facility]
[address] [place] [address], * Magnesium (07/21/2025 7:07 PM EDT) Only the most recent of3 resultswithin the time period is included. Magnesium 2.0 1.7 - 2.2 mg/dL 07/21/2025 7:30 PM EDT [facility] Blood Venipuncture / Unknown 07/21/2025 7:07 PM EDT 07/21/2025 7:12 PM EDT us Sina Thibodeaux Jr., PA-C LAB BLOOD ORDERABLES Final Result Performing Organization Address [facility]/ZIP Co de Phone Number [facility]
[address] [place] [address], * Ethanol (07/21/2025 7:07 PM EDT) Ethanol <10 0 - 10 mg/dL 07/21/2025 7:30 PM EDT [facility] Ethanol % <0.010 % 07/21/2025 7:30 PM EDT [facility] Blood Venipuncture / Unknown 07/21/2025 7:07 PM EDT 07/21/2025 7:12 PM EDT Narrative [facility] - 07/21/2025 7:30 PM EDT Not for legal purposes. us Sina Thibodeaux Jr., PA-C LAB BLOOD ORDERABLES Final Result Performing Organization Address [facility] Co de Phone Number [facility]
[address] [place] [address], * , Urine - Urine, Clean Catch (07/18/2025 12:56 AM EDT) HCG, Urine QL Negative Negative 07/18/2025 1:12 AM EDT [facility] Urine Urine specimen obtained by clean catch procedure / Unknown Collection / Unknown 07/18/2025 12:56 AM EDT 07/18/2025 12:56 AM EDT Narrative [facility] - 07/18/2025 1:12 AM EDT Charles Rocha MD URINE ORDERABLES Final Res ult Performing Organization Address City/[facility]/ZIP Co de Phone Number [facility]
[address] [place] [address], * XR Chest 1 View (07/17/2025 10:14 [...] DIAGNOSTIC IMAGING ORD ERABLES Final Result * COVID-19 and FLU A/B PCR, 1 HR TAT - Swab, Nasopharynx (07/17/2025 9:51 PM EDT) COVID19 Not Detected Not Detected - Ref. Range WALLACE FREDY NAHOMY 07/17/2025 10:16 PM EDT [facility] Influenza A PCR Not Detected Not Detected WALLACE FREDY NAHOMY 07/17/2025 10:16 PM EDT [facility] Influenza B PCR Not Detected Not Detected WALLACE FREDY NAHOMY 07/17/2025 10:16 PM EDT [facility] Swab Nasopharyngeal structure / Unknown Collection / Unknown 07/17/2025 9:51 PM EDT 07/17/2025 9:54 PM EDT Charles Rocha MD MICROBIOLOGY - GENERAL ORD ERABLES Final Result [facility]
[address] [place] [address], * Procalcitonin (07/17/2025 9:51 PM EDT) Procalcitonin 0.04 0.00 - 0.25 ng/mL 07/17/2025 10:21 PM EDT [facility] Blood Venipuncture / Unknown 07/17/2025 9:51 PM EDT 07/17/2025 9:55 PM EDT Narrative [facility] - 07/17/2025 10:21 PM EDT [...] Day 4 values are available. Refer to http://www.taghjq-zfq-wqkcjfpneo.[email or web address] Change in PCT <=80% A decrease of [...] BLOOD ORDERABLES Final Result Performing Organization Address City/[facility]/ZIP Co de Phone Number [facility]
[address] [place] [address], * (ABNORMAL) C-reactive Protein (07/17/2025 9:51 PM EDT) [facility] C-Reactive Protein 0.59(H) 0.00 - 0.50 mg/dL 07/17/2025 10:13 PM EDT [facility] Blood Venipuncture / Unknown 07/17/2025 9:51 PM EDT 07/17/2025 9:55 PM EDT us Charles Rocha MD LAB BLOOD ORDERABLES Final Result Performing Organization Address City/[facility]/ZIP Co de Phone Number [facility]
[address] [place] [address], [place] [phone] * CK (07/17/2025 9:51 PM EDT) [facility] Creatine Kinase 156 U/L 07/17/2025 10:13 PM EDT [facility] Blood Venipuncture / Unknown 07/17/2025 9:51 PM EDT 07/17/2025 9:55 PM EDT us Charles Rocha MD LAB BLOOD ORDERABLES Final Result Performing Organization Address City/[facility]/ZIP Co de Phone Number [facility]
[address] [place] [address], [place] [phone] * hCG, Serum, Qualitative (07/08/2025 10:29 PM EDT) HCG Qualitative Negative Negative 11:28 PM EDT [facility] Blood Venipuncture / Unknown 07/08/2025 10:29 PM EDT 07/08/2025 10:32 PM EDT Marvin Arias MD LAB BLOOD ORDERABLES Final Res ult [facility]
[address] [place] [address], * Lactic Acid, Plasma (07/02/2025 10:41 PM EDT) Lactate 1.0 0.5 - 2.0 mmol/L 07/02/2025 11:05 PM EDT [facility] Blood Venipuncture / Unknown 07/02/2025 10:41 PM EDT 07/02/2025 10:45 PM EDT Jennifer Thao MD LAB BLOOD ORDERABLES F inal Result Performing Organization Address City/[facility]/ZIP Co de Phone Number [facility]
[address] [place] [address], from Last 3 Months Insurance PPO [employer] Care Teams Bass Singer Relationship Specialty Start Date End Date Stacy Lake MD [address] [place] [phone] PCP - General Family Medicine 02/08/22
--- OUTSIDE RECORDS SUMMARY | 2025-09-16 10:53 | XMS_ITS | Clinical Summary ---
Author Organization [facility] Address [address] [place] [address] Care Team Providers Care Rn Acute Dialysis Name Role Phone Stacy Lake MD Primary Care Provider +1- [phone] Allergies Active Allergy Reactions Criticality Noted Date Comments Red Dye #40 (Allura Red) Anaphylaxis High 01/05/2022 Topical - rash Ingested- anaphylaxis Sulfa Drugs Anaphylaxis High 05/14/2021 Sulfamethoxazole-T rimethoprim Itching,Other - please document in the comment field,Swelling,Unknown - Patient states they do not know rxn details High 04/17/2021 Red, itchy and burning eyes. Swelling of throat. Medications fluticasone (Flonase) 50 MCG/ACT nasal spray Administer 1 spray into each nostril daily. 0 Active loratadine (Claritin) 10 MG tablet Take 1 tablet by mouth as needed for allergies. 0 Active EPINEPHrine (Epipen) 0.3 MG/0.3ML injection syringeIndications :Allergy to food additives Inject 0.3 mL (0.3 mg) into the muscle if needed for anaphylaxis. Call 911 after use. 2 each 1 3 Active albuterol 108 (90 Base) MCG/ACT inhalerIndications :Acute URI Inhale 1-2 puffs every 6 (six) hours if needed for wheezing. 18 g 3 Active oral electrolytes (Thermotabs) tablet Take 1 tablet by mouth twice daily 90 tablet 3 5 Active Rimegepant Sulfate (Nurtec) 75 MG orally disintegrating tablet Dissolve 1 tablet on the tongue 1 time as needed (Take one at onset of headache. Do not exceed 75mg in 24 hours.). 8 tablet 6 5 Active ibuprofen 800 MG tablet Take one tablet at onset of headache. Can repeat x1 dose in 4 hours if headache does not improve. Can treat 2-3 headache per week. 20 tablet 6 5 Active Erenumab-aooe (Aimovig) 140 MG/ML solution auto-injector Inject 140 mg under the skin every 30 days. 1.12 mL 6 5 Active ondansetron ODT (Zofran-ODT) 4 MG disintegrating tablet DISSOLVE 1 TABLET IN MOUTH EVERY 8 HOURS NEEDED FOR NAUSEA AND VOMITING 5 Active levothyroxine (Synthroid, Levoxyl) 88 MCG tabletIndications: Hypothyroidism, unspecified type Take 1 tablet by mouth daily. 90 tablet 3 5 Active Active Problems Problem Noted Date Diagnosed Date Vasovagal syncope 06/14/2024 Autonomic dysfunction 04/29/2024 POTS (postural orthostatic tachycardia syndrome) 04/29/2024 Transient neurological symptoms 01/12/2024 Chronic gastritis without bleeding 2023 Assessment & Plan (2023 2:26 PM EST): Encourage patient to continue trying famotidine twice daily, patient can also try [id number] omeprazole however she is anaphylactic allergic to red dye so she would need to try 1 without red dye in addition to her famotidine. Also instructed patient to start a dietary journal and keep track of the food she eats and how her nausea and right upper quadrant pain due with each separate food. Will also refer patient to GI today for an assessment of her chronic gastritis. Other specified cardiac arrhythmias 01/31/2023 Tachycardia, unspecified 01/31/2023 Unspecified convulsions 10/13/2022 Chronic migraine without aur a without status migrainosus, not intractable 07/09/2022 Assessment & Plan (07/09/2022 3:52 PM EDT): Patient is having migraines every 4 days with her aura that she describes as a visual disturbance similar to spark wears, she is having pain and had band like sensation across her forehead. Excedrin use to help but she is no longer having her migraines resolved with this. She additionally describes some dizziness which she does not know if it is associated with her migraines, she has not paid attention. Given the fact of her the severity of her migraines as well as frequency will start patient on abortive medication called sumatriptan which she has to take when she starts feeling the aura and again in 2 hours after if she continues to have a migraine, she has to take propranolol twice a day every day as well. Did discuss that patient should keep a migraine journal to denote what triggers her migraines. Seasonal allergic rhinitis due to pollen 022 Assessment & Plan (01/06/2022 9:36 AM EDT): Likely the source of her sore throat. Recommend she restart claritin and flonase. 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 Assessment & Plan (01/06/2022 9:41 AM EDT): She is monitoring food intake closely. Not a severe reaction thus far but had throat swelling and some difficulty breathing, so prescribed epi pen to keep with her. Migraine with aura, not intr actable, without status migrainosus 09/07/2021 Assessment & Plan (01/06/2022 9:35 AM EDT): Overall pretty well controlled with excedrin migraine. Mom will see if she can leave some at school for her to take as needed. Assessment & Plan (09/07/2021 4:11 PM EST): Both parents with migraines. Headache description is typical. Recommend ibuprofen or excedrin migraine at first onset of aura. If happening more frequently, let me know. Warned of rebound headaches with otc meds. Lactose intolerance 02/12/2021 Pilonidal cyst 11/01/2019 Vitamin D deficiency, unspecified 10/05/2019 BMI (body mass index), pediatric, greater than 9 9% for age 1109/06/2019 Assessment & Plan (09/07/2021 4:12 PM EST): Following with peds high bmi clinic but mom uncertain how long they will continue this. Stressed this is her most important health concern and why we were so focused on improving her BMI. Hypothyroidism, unspecified 08/02/2019 Assessment & Plan (07/09/2022 3:53 PM EDT): Levothyroxine refilled today. Obesity, unspecified 08/02/2019 Resolved Problems Problem Noted Date Diagnosed Date Resolved Date S/P laparoscopic cholecystectomy 05/06/2025 06/12/2025 Abdominal pain, right upper quadrant 12/24/2024 06/12/2025 Biliary dyskinesia 12/24/2024 Chronic cholecystitis 12/24/20242024 Palpitations 02/23/2024 06/12/2025 Chest pressure 02/23/2024 06/12/2025 Shortness of breath 02/23/2024 06/12/20 25 Migraine 11/03/2023 02/01/2024 Common cold virus 08/03/2023 08/03/2023 02/01/2024 UTI (urinary tract infection) 08/03/2023 08/03/2023 02/01/2024 Acute superficial gastritis without hemorrhage 01/16/2023 02/01/2024 Fever, unspecified 01/05/2023 Noninfective gastroenteritis and colitis, unspecified 01/05/2023 02/01/2024 Headache, unspecified 12/29/20222023 Essential (primary) hypertension 12/29/2022 02/23/2024 Contact with and (suspected) exposure to covid-19 11/30/2022 02/01/2024 Nasal congestion 11/30/2022 02/01/2024 Acute pharyngitis, unspecified 11/30/2022 02/01/2024 Unspecified visual loss 11/04/2022 08/2 Myalgia, unspecified site 10/13/2022 Dizziness 08/21/2022 06/12/2025 Physically well but worried 12/23/2021 01/06/2022 Closed fracture of anterior process of right calcaneus 06/02/2021 06/12/2025 Irregular periods/menstrual cycles 05/14/2021 06/12/2025 Assessment & Plan (01/06/2022 9:35 AM EDT): Overall improving. Had normal work up. Not interested in meds at this time. Assessment & Plan (09/07/2021 4:13 PM EST): Labs and ultrasound have been pretty unremarkable. I don't think further work up indicated right now. She has had regular menses previously. Discussed preloading with NSAIDs v beginning OCP. They'll discuss and let me know if they'd like to try something. Explained this would be for symptom management. Assessment & Plan (05/14/2021 9:52 AM EDT): Suspect PCOS. Ordered total testosterone and transvaginal U/S to confirm. Follow-up in 3-4 weeks to discuss results and next steps. Patient has hx of thyroid disease. Reviewed recent thyroid labs, and they are normal. Acute cystitis without hematuria 05/14/2021 09/07/2021 Assessment & Plan (05/14/2021 9:53 AM EDT): Patient stopped antibiotic course for last UTI due to allergic reaction. Suspect this is continuation of last UTI. Reviewed UA and culture from March 2021 - culture showed E. Coli susceptible to nitrofurantoin. Follow-up if dysuria continues or does not improve. 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 Xerosis of skin 03/04/2020 06/12/2025 Laryngitis 01/16/2020 09/07/2021 Pilonidal disease 12/06/2019 09/07/2021 Elevated blood pressure reading 09/06/2019 06/12/2025 Snorings 09/06/2019 04/06/2021 Social isolation 08/06/2019 09/07/2021 Encounters Date Type Department Care Team Description 09/09/2025 Orders Only [facility] [address] [place] [address] Gaston Queen Hypomagnesemia (Primary Dx); Hypokalemia from Last 3 Months Immunizations Immunization Administration Dates Next Due DTaP 10/09/2009, 7,04/11/2006,02/07,2005 HPV 9-Valent 07/11/2017,12/30/2016 Hep A, ped/adol, 2 dose 07/11/2017,12/30/2016 Hep B, Adolescent or Pediatric 04/11/2006,2005,2005 Hib (PRP-OMP) 05/02/2007, 6,02/07/2006,12/09 IPV 10/09/2009, 7,04/11/2006,02/07,2005 Influenza, injectable, quadr ivalent, preservative free 07/12/2023,08/18/2022,09/07/2021,10/18,08/02/2019,07/10/2018 MMR 10/09/2009,01/30/2007 Meningococcal MCV4, Unspecified 12/30/2016 Meningococcal MCV4P 01/09/2017 Meningococcal Polysaccharide (Groups A, C, Y, W-135) Tt Cone 07/12/2023 [employer] COVID-19 Vac cine (Purple Cap) 12+ 04/02/2021,03/12/2021 Pneumococcal Conjugate PCV 13 05/30/2007 ,04/11/2006,02/07/2006,12/09 Pneumococcal Conjugate PCV 7 05/30/2007 Tdap 12/30/2016 Varicella 03/10/2011,11/03/2006 Family History Medical History Relation Name Comments Asthma Brother Jose Manuel Redding Obesity Brother Jose Manuel Redding Hypertension Father Gerson Redding Obesity Father Gerson Redding Diabetes Father's Brother Kris Alvarado Atrial fibrillation Maternal Grandfather Rubén Jacksonnas baird Cancer Maternal Grandfather Rubén Kam Diabetes Maternal Grandfather Rubén Kam prediabetes Maternal Grandmother Autoimmune disease Mother Meagan Vasquezic Cataracts Mother Meagan Vasquezic Conversions - Other Mother Meagan Vasquezic Hashimo to thyroiditis Diabetes Mother Meagan Rumely Diabetes type II Mother Meagan Vahid Hyperlipidemia Mother Meagan Vahid Hypertension Mother Meagan Vahid Obesity Mother Meagan Rumely Psoriasis Mother Meagan Rumely Sleep apnea Mother Meagan Vasquezic Diabetes Other 1 Hypertension Other 2 Kidney disease Other 3 Sleep apnea Other 4 Thyroid disease Other 5 Hyperlipidemia Other 6 Autoimmune disease Paternal Grandmother Alessandra Jenny Diabetes Paternal Grandmother Alessandra Jenny Diabetes type II Paternal Grandmother Alessandra Jenny Kidney disease Paternal Grandmother Alessandra Jenny Lupus Paternal Grandmother Alessandra Jenny Relation Name Status Comments Brother Jose Manuel Redding Father Gerson Redding Father's Brother Kris Alvarado Maternal Grandfather Rubén Kam Maternal Grandmother Mother Meagan Redding Alive Other 1 Other 2 Alive Other 3 Other 4 Other 5 Other 6 Paternal Grandmother Alessandra Bakerwell Social History Tobacco Use Types Packs/Day Years Used Date Smoking Tobacco: Never Passive Smoke Exposure: Never Smokeless Tobacco: Never Tobacco Cessation:Counseling Given: Not Answered Alcohol Use Standard Drinks/Week Comments Never 0 (1 standard drink = 0.6 oz pur e alcohol) AUDIT-C Answer Date Recorded Q1: How often do you have a drink containing alcohol? Never 12/24/2024 Q2: How many drinks containi ng alcohol do you have on a typical day when you are drinking? Patient does not drink Q3: How often do you have si x or more drinks on one occasion? Never 12/24/2024 Overall Financial Resource Strain (CARDIA) Answe r Date Recorded How hard is it for you to pa y for the very basics like food, housing, medical care, and heating? Not hard at all 12/24/2024 PHQ-2 Answer Date Recorded Patient Health Questionnaire-2 Score 0 05/15/2025 [facility] - Occupational Stress Questionnaire Answer Date Recorded Do you feel stress - tense, restless, nervous, or anxious, or unable to sleep at night because your mind is troubled all the time - these days? Not at all 12/24/2024 Exercise Vital Sign Answer Date Recorde d On average, how many days pe r week do you engage in moderate to strenuous exercise (like a brisk walk)? 3 days 12/24/2024 On average, how many minutes do you engage in exercise at this level? 30 min 12/24/2024 PHQ-9 Answer Date Recorded Patient Health Questionnaire-9 Score 0 04/15/2025 Humiliation, Afraid, Rape, and Kick questionnair e Answer Date Recorded Within the last year, have y ou been afraid of your partner or ex-partner? No 06/12/2025 Within the last year, have y ou been humiliated or emotionally abused in other ways by your partner or ex-partner? No Within the last year, have y ou been kicked, hit, slapped, or otherwise physically hurt by your partner or ex-partner? No 06/12/2025 Within the last year, have y ou been raped or forced to have any kind of sexual activity by your partner or ex-partner? No 06/12/2025 AUDIT-C Answer Date Recorded Q1: How often do you have a drink containing alc ohol? Never 04/04/2025 Average Number of Drinks Not on file 025 Frequency of Binge Drinking Not on file 03/24 Hunger Vital Sign Answer Date Recorded Within the past 12 months, y ou worried that your food would run out before you got the money to buy more. Never true 06/12/20 25 Within the past 12 months, t he food you bought just didn't last and you didn't have money to get more. Never true 06/12/2025 PRAPARE - Transportation Answer Date Re corded In the past 12 months, has l ack of transportation kept you from medical appointments or from getting medications? No 05/25 In the past 12 months, has l ack of transportation kept you from meetings, work, or from getting things needed for daily living? No 06/12/2025 Housing Stability Vital Sign Answer Geoff e Recorded In the last 12 months, was t here a time when you were not able to pay the mortgage or rent on time? No 06/12/2025 In the past 12 months, how m any times have you moved where you were living? 0 06/12/2025 At any time in the past 12 m [facility], were you homeless or living in a senior living (including now)? No 06/12/2025 Caregiver Education and Work Answer Geoff e Recorded High School Degree No 05/14/2021 Help Reading Hospital Materials Yes 05/14/2021 Caregiver Health Answer Date Recorded Low Interest In Doing Things Not at all Feeling Down Not at all 05/14/2021 Substance Use Problems in Home No 0 05/14/2021 Adolescent Substance Use Answer Date Re corded Problems with Alcohol or Marijuana No 05/14/2021 Use of Non-Prescription Medicines No 05/14/2021 Tobacco or E-Cigarette Use No 05/14 Utilities Answer Date Recorded In the past 12 months has th e electric, gas, oil, or water company threatened to shut off services in your home? No 06/12/2025 PHQ-2A Answer Date Recorded Depression Risk 0 2023 PHQ-9A Answer Date Recorded Depression Risk Score 0 03/18/2023 Comments No Sex and Gender Information Value Date Recorded Sex Assigned at Female 04/16/2025 10:31 AM EDT Legal Sex Female 7:01 PM EDT Gender Identity Female 04/16/2025 10:31 AM EDT Sexual Orientation Not on file Last Filed Vital Signs Vital Sign Reading Time Taken Comments Blood Pressure 112/79 06/12/2025 7:45 AM EDT Pulse 72 06/12/2025 7:45 AM EDT Temperature 36.8 C (98.2 F) 05/06/2025 11:49 AM EDT Respiratory Rate 18 05/06/2025 11:49 AM EDT Oxygen Saturation 98% 06/12/2025 7:45 AM EDT Inhaled Oxygen Concentration - - Weight 115 kg (253 lb 8.5 oz) 06/12/2025 7:45 AM EDT Height 174 cm (5' 8.5 ) 05/15/2025 9:45 AM EDT Body Mass Index 37.98 05/15/2025 9:45 AM EDT Plan of Treatment Upcoming Encounters Date Type Department Care Team (Late st Contact Info) Description 11/20/2025 10:40 AM EST Office Visit [facility] Pediatric Neurology [address] [place] [address] Vonnie Taveras PA [address] [place] [address] 06/18/2026 3:50 PM EDT Office Visit [facility] Medicine [address] [place] [address] Stacy Lake MD [address] [place] [address] Health Maintenance Due Date Last Done Comments [facility]-/Child/Adol SDOH Screenings 2005 Fluoride Varnish 06/06/2006 [id number] Vaccine (3 - Pfizer risk series) 04/30/2021 04/02/2021, 03/12/2021 [facility]-Influenza Vaccine (#1) 06/24/202507/12, 08/18/2022, 09/07/2021, Additional history exists [facility]- SDOH Screenings 12/13/2025 [facility]-Adult SDOH Screenings 12/13/2025 06/12/2025 [facility]-Depression Screening 05/15/2026 025, 04/15/2025, 2023, Additional history exists [facility]-DTaP,Tdap,and Td Vaccines (7 - Td or Tdap) 12/30/2026 12/30/2016, 10/09/2009, 05/02/2007, Additional history exists [facility]-Zoster Vaccines (1 of 2) 2055 03/10/2011, 11/03/2006 [facility]-Hepatitis B Vaccines Completed 006, 02/07/2006, 2005 [facility]-HIB Vaccines Completed 05/02/2007, , 02/07/2006, Additional history exists [facility]-Pneumococcal Vaccine: Pediatrics (0 to 5 Years) and At-Risk Patients (6 to 49 Years) Completed 05/30/2007, 05/30/2007, 04/11/2006, Additional history exists [facility]-IPV Vaccines Completed 10/09/2009, 07/2007, 04/11/2006, Additional history exists [facility]-Varicella Vaccines Completed 03/10/2011, 2006 HPV Vaccines Completed 07/11/2017, 12/30/2016 [facility]-Hepatitis A Vaccines Completed 07/11/2017, 06/2017 [facility]-HIV Screening Completed 02/01/2024 [facility]-Hepatitis C Screening Completed 02/01/2024, [facility]-Obesity Intervention Completed 025, 05/15/2025, 04/15/2025, Additional history exists [facility]-Rotavirus Vaccines Aged Out No lo nger eligible based on patient's age to complete this topic Procedures Procedure Name Priority Date/Time Associated Diagnosis Comments HEPATITIS C ANTIBODY W/REFLEX TO HCV QUANT PCR Routine 02/01/2024 1:39 PM EDT Need for hepatitis C screening test HIV 1/2 ANTIBODY/ANTIGEN SCREEN WITH REFLEX TO HIV I/II DIFFERENTIATION Routine 02/01/2024 1:39 PM EDT Screening for human immunodeficiency virus from Last 3 Months or Most Recently Relevant to Health Maintenance Results * HIV 1 & 2 Antibody/Antigen Screen (02/01/2024 1:39 PM EDT) HIV 1 & 2 Antibody/Antigen Screen Non Reactive Non Reactive 02/01/2024 4:18 PM EDT [facility] Comment:Screening for HIV 1 & 2 antibodies, and P24 antigen is NONREACTIVE. No confirmatory testing is required. Blood Venous blood specimen / Unknown Venipuncture / Unknown 02/01/2024 1:39 PM EDT 02/01/2024 1:39 PM EDT us Stacy Lake MD LAB BLOOD ORDERABLES Final Result [facility] [address] [place] [address] * Hepatitis C Antibody w/Reflex to HCV Quant PCR (02/01/2024 1:39 PM EDT) Hepatitis C Antibody Negative Negative 02/01/2024 4:19 PM EDT [facility] Blood Venous blood specimen / Unknown Venipuncture / Unknown 02/01/2024 1:39 PM EDT 02/01/2024 1:39 PM EDT Stacy Lake MD LAB BLOOD ORDERABLES Final Result [facility] [address] [place] [address] from Last 3 Months or Most Recently Relevant to Health Maintenance Insurance [facility] Care Teams Rn Acute Dialysis Relationship Specialty Start Date End Date Stacy Lake MD [address] [place] [phone] PCP - General Family Medicine 04/14/21
--- OUTSIDE RECORDS SUMMARY | 2025-09-16 10:53 | XMS_ITS | Encounter Summary ---
Author Organization [facility] Address [address] [place] [address] Care Team Providers Care Rigging Foreman Name Role Phone Stacy Lake MD Primary Care Provider +1- [phone] Encounter Details Date Type Department Care Team (Late st Contact Info) Description 09/09/2025 Orders Only [facility] [address] [place] [address] [place] [address] Hypomagnesemia (Primary Dx); Hypokalemia Social History Tobacco Use Types Packs/Day Years Used Date Smoking Tobacco: Never Passive Smoke Exposure: Never Smokeless Tobacco: Never Alcohol Use Standard [...] Never 12/24/2024 Overall Financial Resource Strain (CARDIA) Josephe r Date Recorded How hard is it for you to pa y for the very basics like food, housing, medical care, and heating? Not hard at all 12/24/2024 PHQ-2 Answer Date Recorded Patient Health Questionnaire-2 Score 0 05/15/2025 [facility] - Occupational Stress Questionnaire Answer Date [...] any time in the past 12 m [facility], were you homeless or living in a jail (including now)? No 06/12/2025 Caregiver Education and [...] on file documented as of this encounter Plan of Treatment Upcoming Encounters Date Type Department Care Team (Late st Contact Info) Description 11/20/2025 10:40 AM EST Office Visit [facility] Pediatric Neurology [address] [place] [address] Vonnie Taveras, PA [address] [place] [phone] 06/18/2026 3:50 PM EDT Office Visit [facility] [address] [place] [address] Stacy Lake MD [address] [place] [address] Scheduled Orders Name Type Priority Associated Diagnoses Orde r Schedule Basic metabolic panel Lab Routine Hypokalemia Expected: 09/09/2025 (Approximate), Expires: 03/13/2027 Magnesium Lab Routine Hypomagnesemia Expected: 09/09/2025 (Approximate), Expires: 03/13/2027 documented as of this encounter Visit Diagnoses Diagnosis Hypomagnesemia- Primary Disorders of magnesium metabolism Hypokalemia Hypopotassemia documented in this encounter Additional Health Concerns Assessment Noted Time PHQ-9 Depression Total Score: 0 04/15/20 25 2:12 PM EDT A fall risk assessment has been complete d for the patient 05/15/2025 9:46 AM EDT A Body Mass Index follow-up plan has been documented for the patient 06/12/2025 8:20 AM EDT documented as of this encounter Care Teams Rigging Foreman Relationship Specialty Start Date End Date Stacy Lake MD [address] [facility] [address] [place] [phone] PCP - General Family Medicine 04/14/21 documented as of this encounter
--- OUTSIDE RECORDS SUMMARY | 2025-09-16 10:53 | XMS_ITS | Encounter Summary ---
Author Organization [facility] Address [address] [place] [address] Care Team Providers Care Sexual Assault Nurse Name Role Phone Stacy Lake MD Primary Care Provider +1- [phone] Encounter Details Date Type Department Care Team (Late st Contact Info) Description 04/15/2021 Ophth Exam [facility] [address] [place] [address] Benjamín Rodriguez MD Social History Tobacco Use Types Packs/Day Years Used Date Smoking Tobacco: Never PHQ-2 Answer Date Recorded Patient Health Questionnaire-2 Score 0 04/13/2021 Exercise Vital Sign Answer Date Recorde d On average, how many days pe r week do you engage in moderate to strenuous exercise (like a brisk walk)? 3 days 04/06/2021 On average, how many minutes do you engage in exercise at this level? 30 min 04/06/2021 Comments Unknown Sex and Gender Information Value Date Recorded Sex Assigned at Female 04/16/2025 10:31 AM EDT Legal Sex Female 7:01 PM EDT Gender Identity Female 04/16/2025 10:31 AM EDT Sexual Orientation Not on file COVID-19 Exposure Response Date Recorded In the last month, have you been in contact with someone who was confirmed or suspected to have Coronavirus / COVID-19? No / Unsure 04/17/2021 9:14 AM EDT documented as of this encounter Plan of Treatment Upcoming Encounters Date Type Department Care Team (Late st Contact Info) Description 11/20/2025 10:40 AM EST Office Visit [facility] Pediatric Neurology [address] [place] [address] Vonnie Taveras PA [address] [facility] [address] [place] [address] 06/18/2026 3:50 PM EDT Office Visit [facility] Medicine [address] [place] [address] Stacy Lake MD [address] [place] [address] documented as of this encounter [...] documented as of this encounter Care Teams Sexual Assault Nurse Relationship Specialty Start Date End Date Stacy Lake MD [address] [address] PCP - General Family Medicine 04/14/21 documented as of this encounter
--- OUTSIDE RECORDS SUMMARY | 2025-09-16 10:53 | XMS_ITS | Encounter Summary ---
Author Organization [facility] Address [address] [place] [address] Care Team Providers Care Eligibility Analyst Name Role Phone Stacy Lake MD Primary Care Provider [phone]- [phone] Encounter Details Date Type Department Care Team (Late st Contact Info) Description 09/09/2022 Ophth Exam [facility] [address] [place] [address] Trevor Bundy MD [address] [place] [address] Social History Tobacco Use Types Packs/Day Years Used Date Smoking Tobacco: Never Passive Smoke Exposure: Never Smokeless Tobacco: Never Alcohol Use Standard Drinks/Week Comments Never 0 (1 standard drink = 0.6 oz pur e alcohol) Humiliation, Afraid, Rape, and Kick questionnair e Answer Date Recorded Within the last year, have y ou been afraid of your partner or ex-partner? No 05/14/2021 Within the last year, have y ou been humiliated or emotionally abused in other ways by your partner or ex-partner? No Within the last year, have y ou been kicked, hit, slapped, or otherwise physically hurt by your partner or ex-partner? No 05/14/2021 Within the last year, have y ou been raped or forced to have any kind of sexual activity by your partner or ex-partner? No 05/14/2021 Overall Financial Resource Strain (CARDIA) Answe r Date Recorded How hard is it for you to pa y for the very basics like food, housing, medical care, and heating? Somewhat hard 05/14/2021 PHQ-2 Answer Date Recorded Patient Health Questionnaire-2 Score 0 07/06/2021 [facility] - Occupational Stress Questionnaire Answer Date Recorded Do you feel stress - tense, restless, nervous, or anxious, or unable to sleep at night because your mind is troubled all the time - these days? To some extent 05/14/2021 Exercise Vital Sign Answer Date Recorde d On average, how many days pe r week do you engage in moderate to strenuous exercise (like a brisk walk)? 3 days 04/06/2021 On average, how many minutes do you engage in exercise at this level? 30 min 04/06/2021 Hunger Vital Sign Answer Date Recorded Within the past 12 months, y ou worried that your food would run out before you got the money to buy more. Never true 05/14/20 21 Within the past 12 months, t he food you bought just didn't last and you didn't have money to get more. Never true 05/14/2021 PRAPARE - Transportation Answer Date Re corded In the past 12 months, has l ack of transportation kept you from medical appointments or from getting medications? No 04/24 In the past 12 months, has l ack of transportation kept you from meetings, work, or from getting things needed for daily living? No 05/14/2021 Housing Stability Vital Sign Answer Geoff e Recorded In the last 12 months, was t here a time when you were not able to pay the mortgage or rent on time? No 05/14/2021 In the last 12 months, how many places have you lived? 1 05/14/2021 In the last 12 months, was t here a time when you did not have a steady place to sleep or slept in a fdc (including now)? No 05/14/2021 Caregiver Education and Work Answer Geoff e [...] 05/14/2021 Tobacco or E-Cigarette Use No 05/14 Comments No Sex and Gender Information Value Date Recorded Sex Assigned at Female 04/16/2025 10:31 AM EDT Legal Sex Female 7:01 PM EDT Gender Identity Female 04/16/2025 10:31 AM EDT Sexual Orientation Not on file COVID-19 Exposure Response Date Recorded In the last 10 days, have yo u been in contact with someone who was confirmed or suspected to have Coronavirus/COVID-19? No / Unsure 09/09/2022 7:04 PM EST documented as of this encounter Functional Status * Calculated C-SSRS Risk Score (Lifetime/Recent) Answer Date of Assessment Author No Risk Indicated 09/09/2022 8:05 PM Sa nancy Perry RN * Question Answer Date of Assessment Author 1. Wish to be (Past 1 Month) No 022 8:05 PM Shraddha Perry RN 2. Non-Specific Active Suici prudencio Thoughts (Past 1 Month) No 09/09/2022 8:05 PM Shraddha Perry RN 6. Suicidal Behavior (Lifetime) No 8:05 PM Shraddha Perry RN documented as of this encounter Plan of Treatment Upcoming Encounters Date Type Department Care Team (Late st Contact Info) Description 11/20/2025 10:40 AM EST Office Visit [facility] [address] [place] [address] Vonnie Taveras, PA [address] [facility] [address] [place] [address] 06/18/2026 3:50 PM EDT Office Visit [facility] [address], [address] [place] [id number] Stacy Lake MD [address] [place] [address] documented as of this encounter Visit Diagnoses Not on filedocumented in this encounter Additional Health Concerns Infection Onset Date Last Indicated Resolved Time COVID-19 Rule-Out 08/11/2023 08/11/2023 08/12/2023 1:08 AM EDT COVID-19 Rule-Out 09/30/2023 09/30/2023 09/30/2023 9:22 PM EST Assessment Noted Time A fall risk assessment has been complete d for the patient 04/02/2022 10:44 AM EDT documented as of this encounter Care Teams Eligibility Analyst Relationship Specialty Start Date End Date Stacy Lake MD [address] [facility] [address] [place] [address] PCP - General Family Medicine 04/14/21 documented as of this encounter
--- OUTSIDE RECORDS SUMMARY | 2025-09-16 10:53 | XMS_ITS | Encounter Summary ---
Author Organization [facility] Address [address] [place] [address] Care Team Providers Care Practice Performance Manager Name Role Phone Stacy Lake MD Primary Care Provider + Encounter Details Date Type Department Care Team (Latest Contact Info) Description 08/13/2025 Travel Social History Tobacco Use Types Packs/Day [...] file Travel History Travel Start Travel End [place] 07/21/2025 08/20/2025 documented as of this encounter Functional Status * Calculated C-SSRS Risk Score (Lifetime/Recent) Answer Date of Assessment Author No Risk Indicated 08/13/2025 10:10 PM EDT Dina Arzate, RN * [place] Suicide Severity Rating Scale (Screener/Recent Self-Report) Question Answer Date of Assessment Author 1. Wish to be (Past 1 Month) No 08/13/2025 10:10 PM EDT Brayan Pinto RN 2. Non-Specific Active Suici prudencio Thoughts (Past 1 Month) No 08/13/2025 10:10 PM EDT Noelle Pinto RN 6. Suicidal Behavior (Lifetime) No 10:10 PM YVROSET Dina Pinto RN documented as of this encounter Plan of Treatment Not on file documented as of this encounter Visit Diagnoses Not on filedocumented in this encounter Care Teams Practice Performance Manager Relationship Specialty Start Date End Date Stacy Lake MD [address] [place] [address] PCP - General Family Medicine 02/08/22 documented as of this encounter
--- OUTSIDE RECORDS SUMMARY | 2025-09-16 10:54 | XMS_ITS | Encounter Summary ---
Author Organization [facility] Address [address] [place] [address] Care Team Providers Care Document Manager Name Role Phone Stacy Lake MD Primary Care Provider + Encounter Details Date Type Department Care Team (Latest Contact Info) Description 07/20/2025 Travel Social History Tobacco Use Types Packs/Day [...] file Travel History Travel Start Travel End [place] 07/21/2025 08/20/2025 documented as of this encounter Functional Status * Calculated C-SSRS Risk Score (Lifetime/Recent) Answer Date of Assessment Author No Risk Indicated 07/20/2025 11:01 PM EDT Anna Peralta, EULOGIO * [place] Suicide Severity Rating Scale (Screener/Recent Self-Report) Question Answer Date of Assessment Author 1. Wish to be (Past 1 Month) No 025 11:01 PM EDT Anna Peralta, RN 2. Non-Specific Active Suici prudencio Thoughts (Past 1 Month) No 07/20/2025 11:01 PM EDT Gisele Peralta RN 6. Suicidal Behavior (Lifetime) No 5 11:01 PM EDT Anna Peralta RN documented as of this encounter Plan of Treatment Not on file documented as of this encounter Visit Diagnoses Not on filedocumented in this encounter Care Teams Document Manager Relationship Specialty Start Date End Date Stacy Lake MD [address] [place] [address] PCP - General Family Medicine 02/08/22 documented as of this encounter
== END 2025-09-13 23:59 ==
LOC: LAB.DROPOF 09-16 10:32
PROVIDERS: PCP Family Medicine; Visit Provider Nurse Practitioner
DX: N30.00 Acute cystitis without hematuria (principal)
CPT/HCPCS: 87086; 87088; 87186